=== PATIENT | male | born 1940 | race Caucasian/White ===

== ENCOUNTER → 2018-04-15 09:18 | Outpatient (CLI) | payer OTHER, SELFPAY ==
[2018-04-15 10:31] LABS: Hemoglobin A1C% w Est Avg Glu 7.1 % (4.0-6.0)
[2018-04-15 10:36] LABS: Alanine Aminotransferase 24 IU/L (21-72); Albumin Globulin Ratio 1.5 (1.0-2.8); Alkaline Phosphatase 58 U/L (38-126); Aspartate Aminotransferase 18 IU/L (17-59); BUN Creatinine Ratio 28.3 (6-22); Bilirubin Total 1.5 mg/dL (0.2-1.3); Blood Urea Nitrogen 17 mg/dL (9-20); Calcium 9.6 mg/dL (8.4-10.2); Carbon Dioxide 25 mmol/L (22-32); Chloride 102 mmol/L (98-107); Cholesterol 125 mg/dL (140-199); Estimated Glomerular Filt Rate > 60.0 mL/min (>60); Globulin 2.6 g/dL (1.7-4.1); Glucose 157 mg/dL (80-110); HDL Cholesterol 29 mg/dL (40-60); HEMOLYSIS < 15 (0-50); LDL Cholesterol Calculated 73 mg/dL (<100); Sodium 140 mmol/L (137-145); Total Protein 6.6 g/dL (6.3-8.2); Triglycerides 115 mg/dL (35-150)
[2018-04-15 10:51] LABS: Creatinine Urine Random 126.1 mg/dL
[2018-04-15 10:56] LABS: Microalbumi Creatinin Ratio Ur 12.6 ug/mg CR (<30); Microalbumin Urine Random 1.6 mg/dL (0-1.6)
== END ==
PROVIDERS: PCP Internal Medicine; Visit Provider Internal Medicine
DX: E11.65 Type 2 diabetes mellitus with hyperglycemia (principal); I10 Essential (primary) hypertension; E78.2 Mixed hyperlipidemia
CPT/HCPCS: 80053; 80061; 82043; 82570; 83036

== ENCOUNTER → 2018-10-13 08:00 | Outpatient (CLI) | payer OTHER, SELFPAY ==
[2018-10-13 09:03] LABS: Hemoglobin A1C% w Est Avg Glu 7.9 % (4.0-6.0)
[2018-10-13 09:36] LABS: Alanine Aminotransferase 19 IU/L (21-72); Albumin 4.5 g/dL (3.5-5.0); Albumin Globulin Ratio 1.7 (1.0-2.8); Alkaline Phosphatase 54 U/L (38-126); Aspartate Aminotransferase 21 IU/L (17-59); BUN Creatinine Ratio 22.9 (6-22); Bilirubin Total 1.4 mg/dL (0.2-1.3); Blood Urea Nitrogen 16 mg/dL (9-20); Calcium 9.8 mg/dL (8.4-10.2); Carbon Dioxide 29 mmol/L (22-32); Chloride 98 mmol/L (98-107); Estimated Glomerular Filt Rate > 60.0 mL/min (>60); Globulin 2.7 g/dL (1.7-4.1); Glucose 127 mg/dL (80-110); HEMOLYSIS < 15 (0-50); Potassium 4.1 mmol/L (3.4-5.1); Sodium 141 mmol/L (137-145); Total Protein 7.2 g/dL (6.3-8.2)
== END ==
PROVIDERS: PCP Internal Medicine; Visit Provider Internal Medicine
DX: E11.59 Type 2 diabetes mellitus with other circulatory complications (principal); E78.2 Mixed hyperlipidemia; I10 Essential (primary) hypertension
CPT/HCPCS: 36415; 80053; 83036

== ENCOUNTER → 2019-03-14 07:02 | Outpatient (CLI) | payer OTHER, SELFPAY ==
[2019-03-14 09:43] LABS: Hemoglobin A1C% w Est Avg Glu 8.1 % (4.0-6.0)
[2019-03-14 10:06] LABS: Alanine Aminotransferase 18 IU/L (21-72); Albumin 3.9 g/dL (3.5-5.0); Albumin Globulin Ratio 1.7 (1.0-2.8); Alkaline Phosphatase 62 U/L (38-126); Aspartate Aminotransferase 15 IU/L (17-59); BUN Creatinine Ratio 18.8 (6-22); Bilirubin Total 1.4 mg/dL (0.2-1.3); Blood Urea Nitrogen 15 mg/dL (9-20); Calcium 9.8 mg/dL (8.4-10.2); Carbon Dioxide 25 mmol/L (22-32); Chloride 97 mmol/L (98-107); Estimated Glomerular Filt Rate > 60.0 mL/min (>60); Globulin 2.3 g/dL (1.7-4.1); Glucose 207 mg/dL (80-110); HEMOLYSIS < 15 (0-50); Potassium 4.7 mmol/L (3.4-5.1); Sodium 135 mmol/L (137-145); Total Protein 6.2 g/dL (6.3-8.2)
== END ==
PROVIDERS: PCP Internal Medicine; Visit Provider Internal Medicine
DX: E11.65 Type 2 diabetes mellitus with hyperglycemia (principal); I10 Essential (primary) hypertension
CPT/HCPCS: 36415; 80053; 83036

== ENCOUNTER → 2019-03-25 14:09 | Outpatient (CLI) | payer OTHER, SELFPAY ==
--- NOTE | 2019-03-25 | DI.ECHO.S_ITS ---
[facility] +---------+ [facility] +---------+ : : [address] . : : : : [address] [address] [address] : : : : [id number] : : : : Phone: [phone]---------+ Echocardiogram Report + + :Name: ANURAG TITUS Study Date: 03/25/2019 Height: 73 in : :[facility] Weight: 208 lb : : Gender: Male BSA: 2.2 m2 : :: 1940 Age: 78 yrs BP: 152/62 mmHg: :Reason For Study: CAD : :Ordering Physician: : :César Mccullough M.D. Performed By: Rosa Fairbanks : :Referring: Dr. Kev Ward : + + Interpretation Summary The left ventricle is normal in size. Left ventricular systolic function is normal without focal wall motion abnormalities. The ejection fraction is estimated to be 60-65%. LV ejection fraction has not changed since prior study. The right ventricle is mildly dilated. The right ventricular systolic function is normal. Pulmonary artery pressures cannot be estimated because of the lack of a measurable TR jet velocity. The left atrium is mildly dilated. Right atrial size is normal. The interatrial septum is intact with no evidence for an atrial septal defect. Lipomatous hypertrophy of the interatrial septum is noted. There is mild to moderate mitral annular calcification. There is mild mitral regurgitation. The aortic valve is moderately calcified. Leaflet mobility is moderately reduced. The calculated aortic valve area is 1.8 cm2. The peak aortic velocity on the previous exam was 1.5 m/sec. The aortic root is mildly dilated. Procedure: A two-dimensional transthoracic echocardiogram with color flow and Doppler was performed. The study quality was technically adequate. Comparison is made with the echocardiogram of 08-22-14. The heart rate ranged between 66-78 bpm during the study. Left Ventricle: The left ventricle is normal in size. There is mild asymmetric left ventricular hypertrophy. Left ventricular systolic function is normal without focal wall motion abnormalities. The ejection fraction is estimated to be 60-65%. Diastolic function could not be accurately assessed due to contradictory data. Right Ventricle: The right ventricle is mildly dilated. The right ventricular systolic function is normal. Atria: The left atrium is mildly dilated. Right atrial size is normal. The interatrial septum is intact with no evidence for an atrial septal defect. Lipomatous hypertrophy of the interatrial septum is noted. Mitral Valve: The mitral valve leaflets appear borderline thickened, but open well. There is mild to moderate mitral annular calcification. There is mild mitral regurgitation. Aortic Valve: The aortic valve is trileaflet. The aortic valve is moderately calcified. Leaflet mobility is moderately reduced. The calculated aortic valve area is 1.8 cm2. The peak aortic velocity is 2.0 m/sec. The peak aortic velocity on the previous exam was 1.5 m/sec. The aortic valve mean gradient is 8 mmHg. Severity ratio is 0.55. There is trace aortic regurgitation. Tricuspid Valve: The tricuspid valve is normal in structure and function. There is a trace or physiologic amount of tricuspid regurgitation. Pulmonary artery pressures cannot be estimated because of the lack of a measurable TR jet velocity. Pulmonic Valve: The pulmonic valve is not well visualized. There is trace pulmonic regurgitation. Great Vessels: The aortic root is mildly dilated. The dimensions of the ascending aorta are normal. The aortic arch is normal in size. The IVC is of normal diameter and collapses greater than 50% with a sniff. This suggests a low right atrial pressure of 3 mm Hg. Pericardium/ Pleura There is no pericardial effusion. There is no pleural effusion. MMode/2D Measurements & Calculations LVIDd: 4.2 cm LVOT diam: 2.1 cm LVIDs: 2.6 cm Ao root diam: 3.9 cm FS: 38.1 % Aortic Jxn: 2.9 cm EPSS: 0.83 cm asc Aorta Diam: 3.2 cm IVSd: 1.3 cm Ao Arch Diam (Prox Trans): 2.9 cm LVPWd: 1.00 cm LV chavira. diameter/BSA (cm/m^2): 1.9 LV sys. diameter/BSA (cm/m^2): 1.2 LA dimension: 4.1 cm RA long axis: 5.1 cm LA A2 area: 24.6 cm2 RA area: 17.8 cm2 LA A4 area: 22.2 cm2 RA vol: 52.8 ml LA length (vol): 5.9 cm RA : 24.1 ml/m2 LA vol: 78.9 ml IVC diam: 1.2 cm LA vol index: 36.1 ml/m2 RVDd major: 4.9 cm RVD1 (basal): 3.5 cm RVD2 (mid): 3.2 cm TISH (plan): 1.4 cm2 Doppler Measurements & Calculations Ao V2 max: 197.0 cm/sec LVOT Max Stanley: 105.0 cm/sec Ao V2 mean: 128.2 cm/sec LV V1 max P.4 mmHg Ao max P.5 mmHg LV V1 VTI: 22.9 cm Ao mean P.8 mmHg TISH(I,D): 1.9 cm2 Ao V2 VTI: 41.9 cm TISH(V,D): 1.8 cm2 sev ratio: 0.55 TISH indexed to BSA (cm^2/m^2): 0.86 MV E max stanley: 90.1 cm/sec TR max stanley: 236.7 cm/sec MV A max stanley: 140.2 cm/sec TR max P.4 mmHg MV E/A: 0.64 PA V2 max: 83.9 cm/sec Med Peak E' Stanley: 4.8 cm/sec PA V2 mean: 55.8 cm/sec E/E' med: 18.6 PA mean P.4 mmHg Lat Peak E' Stanley: 5.4 cm/sec PA Accel Time: 0.15 sec E/E' lat: 16.8 E/e' average: 17.7 MV dec time: 0.26 sec MV P1/2t: 79.7 msec MV P1/2t max stanley: 91.2 cm/sec SV(LVOT): 79.1 ml MVA(P1/2t): 2.8 cm2 Reading Physician:05:26 PM
== END ==
PROVIDERS: PCP Internal Medicine; Visit Provider Internal Medicine Cardiovascular Disease
DX: I34.0 Nonrheumatic mitral (valve) insufficiency (principal); I25.119 Atherosclerotic heart disease of native coronary artery with unspecified angina pectoris
CPT/HCPCS: 93306

== ENCOUNTER → 2019-08-01 08:08 | Outpatient (CLI) | payer OTHER, SELFPAY ==
[2019-08-01 09:26] LABS: Blood Urea Nitrogen 14 mg/dL (9-20); Calcium 10.2 mg/dL (8.4-10.2); Carbon Dioxide 31 mmol/L (22-32); Chloride 98 mmol/L (98-107); Estimated Glomerular Filt Rate > 60.0 mL/min (>60); Glucose 130 mg/dL (80-110); HEMOLYSIS < 15 (0-50); Potassium 4.9 mmol/L (3.4-5.1); Sodium 138 mmol/L (137-145)
== END ==
PROVIDERS: PCP Internal Medicine; Visit Provider Internal Medicine
DX: E11.65 Type 2 diabetes mellitus with hyperglycemia (principal); I10 Essential (primary) hypertension
CPT/HCPCS: 36415; 80048; 83036

== ENCOUNTER 2019-09-13 16:32 | Emergency (ER) | payer OTHER, SELFPAY ==
[2019-09-13 16:58] VITALS: BP 123/71; PULSE 82; RESP 16; TEMP 36.4; O2SAT 96; BMI 27.8
--- NOTE | 2019-09-13 18:01 | ED.WOUNDLAC ---
HPI - Wound/Laceration <Bertha Quinn PA-C - Last Filed: 09/13/19 21:09> General Chief Complaint: Wound/Laceration Stated Complaint: HEAD HIT DOOR FRAME Time Seen by Provider: 09/13/19 17:56 Source: patient Mode of arrival: Ambulatory Limitations: no limitations History of Present Illness HPI narrative: This 79-year-old gentleman states that he did not lift his foot high enough for the top step, caught his foot on the step and pitched forward, hitting his scalp on the door frame. He states that he did not pass out, but this was bleeding quite a bit so came in to see if he needs sutures. He denies any headache, vision change, nausea or vomiting. he denies hitting his neck or any other injury. He denies any pain at all currently and states he feels fine other than this laceration. He is on ASA for cardiac issues, denies other blood thinners or new medicines. Related Data Home Medications Medication Instructions Recorded Confirmed FOLIC ACID/VIT A/VIT B1/VIT 1 tab PO QDAY #0 07/10/11 08/05/19 (#MULTIVITAMIN) cholecalciferol (vitamin D3) 5,000 iu PO QDAY #0 07/10/11 08/05/19 [Vitamin D3] metformin 1,000 mg PO BID #0 07/10/11 08/05/19 glimepiride 1 mg tablet 2 mg PO QAM 04/19/18 08/05/19 blood sugar diagnostic #10 each 10/18/18 08/05/19 lancets 33 gauge #100 each 10/18/18 08/05/19 metoprolol tartrate 50 mg tablet 100 mg PO ONCE tab 04/05/19 08/05/19 chlorthalidone 25 mg tablet 25 mg PO DAILY tab 08/05/19 08/05/19 insulin NPH isoph U-100 human 100 24 unit SUBCUT DAILY ml 08/05/19 08/05/19 unit/mL subcutaneous suspension insulin regular human 100 unit/mL 19 unit SUBCUT DAILY ml 08/05/19 08/05/19 injection solution lisinopril 20 mg tablet 20 mg PO DAILY 08/05/19 08/05/19 simvastatin 20 mg tablet 20 mg PO DAILY 08/05/19 08/05/19 Allergies Allergy/AdvReac Type Severity Reaction Status Date / Time No Known Drug Allergies Allergy Verified 08/05/19 08:52 Review of Systems <Bertha Quinn PA-C - Last Filed: 09/13/19 21:09> Review of Systems ROS Unobtainable: All systems reviewed & are unremarkable except as noted in HPI and below Patient History <Bertha Quinn PA-C - Last Filed: 09/13/19 21:09> Medical History (Updated 09/13/19 @ 19:12 by Bertha Quinn PA-C) Coronary artery disease involving [place]nine [place] coronary artery of [place]nine [place] heart without angina pectoris (Chronic 08/07/15) Esophageal ring (Chronic) Essential hypertension (Chronic 08/07/15) History of adenomatous polyp of colon (Inactive 07/10/11) History of heart bypass surgery (Inactive 08/07/15) [facility]FP current use of insulin (Chronic 09/25/15) Mixed hyperlipidemia (Chronic) Type 2 diabetes mellitus with hyperglycemia (Chronic 12/04/15) 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) Surgical History (Updated 08/05/19 @ 09:13 by Kev Ward MD) Status post appendectomy (Resolved) Status post cholecystectomy (Resolved) Status post coronary artery bypass graft (Resolved 07/2015) Social History marital status: unmarried,single number of children: 0 household members: none lives independently: Yes caregiver/support person: No housing: house pets and animals: No education level: other (Bachelors, Did courses for Masters and PhD) occupational status: 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) 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 HEENT: PERRL, EOMI, normal oropharynx LUNGS: Clear to auscultation bilaterally. HEART: Rate and rhythm regular without murmur, normal S1 and S2, no S3 or S4. DERMATOLOGIC: 5 cm curvilinear left parietal laceration, oozing slightly, maximum depth and gap 2 to 3 mm. NEUROLOGIC: Patient is alert and oriented with normal speech and coordination Initial Vital Signs Initial Vital Signs: Vital Signs Temperature 97.6 F 09/13/19 16:58 Pulse Rate 82 09/13/19 16:58 Respiratory Rate 16 09/13/19 16:58 Blood Pressure 123/71 09/13/19 16:58 Pulse Oximetry 96 09/13/19 16:58 <Quirino Shen MD - Last Filed: 09/14/19 04:28> Initial Vital Signs Initial Vital Signs: Vital Signs Temperature 97.6 F 09/13/19 16:58 Pulse Rate 82 09/13/19 16:58 Respiratory Rate 16 09/13/19 16:58 Blood Pressure 123/71 09/13/19 16:58 Pulse Oximetry 96 09/13/19 16:58 Procedures <Bertha Quinn PA-C - Last Filed: 09/13/19 21:09> Laceration Repair Laceration 1: Site: scalp Side (If applicable): left Size (cm): 5 Description: linear Depth: simple, single layer Pre-repair: wound explored, irrigated extensively and deep structures intact Skin layer closed with: other (bertin, #6) Course <Bertha Quinn PA-C - Last Filed: 09/13/19 21:09> Orders Ordered: Discontinued Medications Diphtheria/Tetanus/Acell Pertussis (Adacel) 0.5 ml IM .ONCE ONE Stop: 09/13/19 18:17 Last Admin: 09/13/19 18:49 Dose: 0.5 ml Documented by: ARRINGTO Vital Signs Vital signs: Vital Signs - 8 hr 09/13/19 16:58 09/13/19 19:00 Temperature 97.6 F Pulse Rate 82 70 Respiratory Rate 16 16 Blood Pressure 123/71 Blood Pressure [Left Arm] 146/63 H Pulse Oximetry 96 99 <Quirino Shen MD - Last Filed: 09/14/19 04:28> Orders Ordered: Discontinued Medications Diphtheria/Tetanus/Acell Pertussis (Adacel) 0.5 ml IM .ONCE ONE Stop: 09/13/19 18:17 Last Admin: 09/13/19 18:49 Dose: 0.5 ml Documented by: HFARRINGTO Vital Signs Vital signs: Vital Signs - 8 hr 09/13/19 16:58 09/13/19 19:00 Temperature 97.6 F Pulse Rate 82 70 Respiratory Rate 16 16 Blood Pressure 123/71 Blood Pressure [Left Arm] 146/63 H Pulse Oximetry 96 99 MDM - Wound/Laceration <Bertha Quinn PA-C - Last Filed: 09/13/19 21:09> Imaging Data head CT: Radiologist's impression: 51 Bertha Quinn PA-C Find Patient Imaging - Jimmy Ferraro 79 M 1940 ACTIVITY DATE EXAM STATUS AUTHOR 09/13/19 18:16 Signed Amarilis Solis [address] [address] [address] Scan Report Signed Patient: Jimmy Ferraro FMR#: [id number] : 9Acct:[id number] Age/Sex: 79 / MDate of Service: 09/13/19 Loc: ED Accession Number: [id number] Procedure: CT head/brain wo con Ordering Provider: Bertha Quinn P.A-C PROCEDURE: CT HEAD/BRAIN WO CON INDICATIONS: fall, head contusion TECHNIQUE: Noncontrast 4.5 mm thick angled axial sections acquired from the foramen magnum to the vertex, with coronal and sagittal reformats. For radiation dose reduction, the following was used: automated exposure control, adjustment of mA and/or kV according to patient size. COMPARISON: None. FINDINGS: Image quality: Excellent. CSF spaces: Basal cisterns are patent. No extra-axial fluid collections. The ventricles are symmetric in size and shape. Brain: No intracranial bleeds or masses. There is cerebral volume loss for age, with resultant ventricular and sulcal prominence. There are periventricular and deep white matter chronic small vessel ischemic changes. There is intracranial internal carotid artery atherosclerosis. Skull and face: Calvarium and visualized facial bones appear intact, without suspicious lesions. Left frontal scalp bertin noted. Sinuses: Visualized sinuses and mastoids are clear. IMPRESSION: No acute intracranial disease process. Dictated by: Amarilis Solis MD, PhD on 09/13/2019 at 19:00 Approved by: Amarilis Solis MD, PhD on 09/13/2019 at 19:02 Discharge Plan Departure Patient Disposition: Home Clinical Impression: Laceration of scalp Qualifiers: Encounter type: initial encounter Qualified Code(s): S01.01XA - Laceration without foreign body of scalp, initial encounter Discharge Date/Time: 09/13/19 19:19 Instructions: DI for Laceration Repair -- [place] Activity Restrictions/Additional Instructions: As we talked about, you should return to the ED or see your PCP away if any signs of infection. Please keep your wound clean and dry. It is okay to rinse off quickly in the shower but avoid immersion in water or manipulating the wound. The bertin can be removed in about a week. Please make an appointment with your PCP next week for this. You may return here if needed for this as well Prescriptions: No Action metformin 1,000 MG tablet 1,000 mg PO BID Qty: 0 RF: 0 cholecalciferol (vitamin D3) [Vitamin D3] 1,000 UNIT tablet 5,000 iu PO QDAY Qty: 0 RF: 0 FOLIC ACID/VIT A/VIT B1/VIT (#MULTIVITAMIN) 1 tab PO QDAY Qty: 0 RF: 0 glimepiride 1 mg tablet 2 mg PO QAM RF: 0 metoprolol tartrate 50 mg tablet 100 mg PO ONCE RF: 0 (DME) blood sugar diagnostic [OneTouch Verio] strip See Dose Instructions .ROUTE .MEDSUPPLY Qty: 10 RF: 0 (DME) lancets [OneTouch Delica Lancets] 33 gauge misc See Dose Instructions .ROUTE .MEDSUPPLY Qty: 100 RF: 0 chlorthalidone 25 mg tablet 25 mg PO DAILY RF: 0 Humulin R Regular U-100 Insuln 100 unit/mL solution 19 unit SUBCUT DAILY RF: 0 Humulin N NPH U-100 Insulin 100 unit/mL suspension 24 unit SUBCUT DAILY RF: 0 simvastatin 20 mg tablet 20 mg PO DAILY RF: 0 lisinopril 20 mg tablet 20 mg PO DAILY RF: 0 Referrals: Kev Ward MD [Primary Care Provider] -
--- NOTE | 2019-09-13 18:16 | DI.CT.S_ITS ---
PROCEDURE: CT HEAD/BRAIN WO CON INDICATIONS: fall, head contusion TECHNIQUE: Noncontrast 4.5 mm thick angled axial sections acquired from the foramen magnum to the vertex, with coronal and sagittal reformats. For radiation dose reduction, the following was used: automated exposure control, adjustment of mA and/or kV according to patient size. COMPARISON: None. FINDINGS: Image quality: Excellent. CSF spaces: Basal cisterns are patent. No extra-axial fluid collections. The ventricles are symmetric in size and shape. Brain: No intracranial bleeds or masses. There is cerebral volume loss for age, with resultant ventricular and sulcal prominence. There are periventricular and deep white matter chronic small vessel ischemic changes. There is intracranial internal carotid artery atherosclerosis. Skull and face: Calvarium and visualized facial bones appear intact, without suspicious lesions. Left frontal scalp bertin noted. Sinuses: Visualized sinuses and mastoids are clear. IMPRESSION: No acute intracranial disease process. Dictated by: Amarilis Solis MD, PhD on 09/13/2019 at 19:00 Approved by: Amarilis Solis MD, PhD on 09/13/2019 at 19:02
[2019-09-13] MEDS: TET,DIPH,PERTUSS(ACELL),VAC/PF 0.5 ML SYRINGE IM (18:49)
[2019-09-13 19:00] VITALS: BP 146/63; PULSE 70; RESP 16; O2SAT 99
--- NOTE | 2019-09-13 19:03 | PC.NURSE ---
steristrips applied between bertin per V. Fishfader request, nonstick dressing applied
== END 2019-09-13 19:19 | disposition home or self-care (01) ==
PROVIDERS: Emergency Provider Internal Medicine; Family Provider Internal Medicine; PCP Internal Medicine
DX: S01.01XA Laceration without foreign body of scalp, initial encounter (principal); W01.198A Fall on same level from slipping, tripping and stumbling with subsequent striking against other object, initial encounter; Z79.82 Long term (current) use of aspirin; Z23 Encounter for immunization
CPT/HCPCS: 12002; 70450; 90471; 99283; 90715

== ENCOUNTER → 2020-02-03 08:08 | Outpatient (CLI) | payer OTHER, SELFPAY ==
[2020-02-03 09:11] LABS: Alanine Aminotransferase 15 IU/L (<50); Albumin 4.4 g/dL (3.5-5.0); Albumin Globulin Ratio 1.4 (1.0-2.8); Alkaline Phosphatase 64 U/L (38-126); Aspartate Aminotransferase 23 IU/L (17-59); BUN Creatinine Ratio 19.3 (6-22); Bilirubin Total 1.4 mg/dL (0.2-1.3); Blood Urea Nitrogen 16 mg/dL (9-20); Calcium 10.1 mg/dL (8.4-10.2); Carbon Dioxide 30 mmol/L (22-32); Chloride 98 mmol/L (98-107); Cholesterol 140 mg/dL (140-199); Estimated Glomerular Filt Rate > 60.0 mL/min (>60); Globulin 3.1 g/dL (1.7-4.1); Glucose 190 mg/dL (80-110); HDL Cholesterol 29 mg/dL (40-60); HEMOLYSIS < 15 (0-50); LDL Cholesterol Calculated 89 mg/dL (<100); Potassium 4.3 mmol/L (3.4-5.1); Sodium 138 mmol/L (137-145); Total Protein 7.5 g/dL (6.3-8.2); Triglycerides 110 mg/dL (35-150)
[2020-02-03 09:12] LABS: Hemoglobin A1C% w Est Avg Glu 8.1 % (4.0-6.0)
== END ==
PROVIDERS: Family Provider Internal Medicine; PCP Internal Medicine; Referring Provider Internal Medicine; Visit Provider Internal Medicine
DX: E11.59 Type 2 diabetes mellitus with other circulatory complications (principal); E78.2 Mixed hyperlipidemia; I10 Essential (primary) hypertension
CPT/HCPCS: 36415; 80053; 80061; 83036

== ENCOUNTER → 2020-06-22 07:46 | Outpatient (CLI) | payer OTHER, SELFPAY ==
[2020-06-22 09:10] LABS: Hemoglobin A1C% w Est Avg Glu 8.3 % (4.0-6.0)
[2020-06-22 09:31] LABS: Alanine Aminotransferase 12 IU/L (<50); Albumin 3.7 g/dL (3.5-5.0); Albumin Globulin Ratio 1.5 (1.0-2.8); Alkaline Phosphatase 58 U/L (38-126); Aspartate Aminotransferase 18 IU/L (17-59); BUN Creatinine Ratio 21.6 (6-22); Bilirubin Total 1.4 mg/dL (0.2-1.3); Blood Urea Nitrogen 16 mg/dL (9-20); Calcium 9.9 mg/dL (8.4-10.2); Carbon Dioxide 29 mmol/L (22-32); Chloride 100 mmol/L (98-107); Cholesterol 128 mg/dL (140-199); Estimated Glomerular Filt Rate > 60.0 mL/min (>60); Globulin 2.4 g/dL (1.7-4.1); Glucose 208 mg/dL (80-110); HDL Cholesterol 29 mg/dL (40-60); HEMOLYSIS < 15 (0-50); LDL Cholesterol Calculated 76 mg/dL (<100); Potassium 4.8 mmol/L (3.4-5.1); Sodium 136 mmol/L (137-145); Total Protein 6.1 g/dL (6.3-8.2); Triglycerides 116 mg/dL (35-150)
== END ==
PROVIDERS: Family Provider Internal Medicine; PCP Internal Medicine; Referring Provider Internal Medicine; Visit Provider Internal Medicine
DX: E11.65 Type 2 diabetes mellitus with hyperglycemia (principal); E78.2 Mixed hyperlipidemia; I10 Essential (primary) hypertension
CPT/HCPCS: 36415; 80053; 80061; 83036

== ENCOUNTER → 2020-09-26 07:58 | Outpatient (CLI) | payer OTHER, SELFPAY ==
[2020-09-26 08:51] LABS: Hemoglobin A1C% w Est Avg Glu 7.7 % (4.0-6.0)
[2020-09-26 09:11] LABS: BUN Creatinine Ratio 22.7 (6-22); Blood Urea Nitrogen 15 mg/dL (9-20); Calcium 9.8 mg/dL (8.4-10.2); Carbon Dioxide 29 mmol/L (22-32); Chloride 101 mmol/L (98-107); Estimated Glomerular Filt Rate > 60.0 mL/min (>60); Glucose 173 mg/dL (80-110); HEMOLYSIS < 15 (0-50); Potassium 4.2 mmol/L (3.4-5.1); Sodium 137 mmol/L (137-145)
== END ==
PROVIDERS: Family Provider Internal Medicine; PCP Internal Medicine; Referring Provider Internal Medicine; Visit Provider Internal Medicine
DX: E11.65 Type 2 diabetes mellitus with hyperglycemia (principal); I10 Essential (primary) hypertension
CPT/HCPCS: 36415; 80048; 83036

== ENCOUNTER → 2020-12-20 08:01 | Outpatient (CLI) | payer OTHER, SELFPAY ==
[2020-12-20 09:03] LABS: Hemoglobin A1C% w Est Avg Glu 8.1 % (4.0-6.0)
[2020-12-20 09:39] LABS: Alanine Aminotransferase 16 IU/L (<50); Albumin Globulin Ratio 1.6 (1.0-2.8); Alkaline Phosphatase 57 U/L (38-126); Aspartate Aminotransferase 20 IU/L (17-59); BUN Creatinine Ratio 26.2 (6-22); Bilirubin Total 1.5 mg/dL (0.2-1.3); Blood Urea Nitrogen 17 mg/dL (9-20); Calcium 9.8 mg/dL (8.4-10.2); Carbon Dioxide 29 mmol/L (22-32); Chloride 100 mmol/L (98-107); Estimated Glomerular Filt Rate > 60.0 mL/min (>60); Globulin 2.5 g/dL (1.7-4.1); Glucose 203 mg/dL (80-110); HEMOLYSIS 16 (0-50); Potassium 4.3 mmol/L (3.4-5.1); Sodium 137 mmol/L (137-145); Total Protein 6.5 g/dL (6.3-8.2)
== END ==
PROVIDERS: Family Provider Internal Medicine; PCP Internal Medicine; Referring Provider Internal Medicine; Visit Provider Internal Medicine
DX: E11.65 Type 2 diabetes mellitus with hyperglycemia (principal); I10 Essential (primary) hypertension
CPT/HCPCS: 36415; 80053; 83036

== ENCOUNTER → 2021-03-14 08:07 | Outpatient (CLI) | payer OTHER, SELFPAY ==
[2021-03-14 09:35] LABS: BUN Creatinine Ratio 29.5 (6-22); Blood Urea Nitrogen 23 mg/dL (9-20); Calcium 9.9 mg/dL (8.4-10.2); Carbon Dioxide 25 mmol/L (22-32); Chloride 99 mmol/L (98-107); Estimated Glomerular Filt Rate > 60.0 mL/min (>60); Glucose 205 mg/dL (80-110); HEMOLYSIS < 15 (0-50); Potassium 4.1 mmol/L (3.4-5.1); Sodium 136 mmol/L (137-145)
[2021-03-14 17:00] LABS: Hemoglobin A1C% w Est Avg Glu 7.7 % (4.0-6.0)
== END ==
PROVIDERS: Family Provider Internal Medicine; PCP Internal Medicine; Referring Provider Internal Medicine; Visit Provider Internal Medicine
DX: E11.65 Type 2 diabetes mellitus with hyperglycemia (principal); I10 Essential (primary) hypertension
CPT/HCPCS: 36415; 80048; 83036

== ENCOUNTER → 2021-09-11 08:01 | Outpatient (CLI) | payer OTHER, SELFPAY ==
[2021-09-11 08:27] LABS: Hemoglobin A1C% w Est Avg Glu 7.2 % (4.0-6.0)
[2021-09-11 08:36] LABS: Alanine Aminotransferase 16 IU/L (<50); Albumin 4.2 g/dL (3.5-5.0); Albumin Globulin Ratio 1.6 (1.0-2.8); Alkaline Phosphatase 49 U/L (38-126); Aspartate Aminotransferase 22 IU/L (17-59); BUN Creatinine Ratio 17.7 (6-22); Bilirubin Total 1.7 mg/dL (0.2-1.3); Blood Urea Nitrogen 14 mg/dL (9-20); Calcium 10.1 mg/dL (8.4-10.2); Carbon Dioxide 28 mmol/L (22-32); Chloride 98 mmol/L (98-107); Cholesterol 144 mg/dL (140-199); Estimated Glomerular Filt Rate > 60.0 mL/min (>60); Globulin 2.6 g/dL (1.7-4.1); Glucose 216 mg/dL (80-110); HDL Cholesterol 34 mg/dL (40-60); HEMOLYSIS < 15 (0-50); LDL Cholesterol Calculated 82 mg/dL (<100); Potassium 4.5 mmol/L (3.4-5.1); Sodium 137 mmol/L (137-145); Total Protein 6.8 g/dL (6.3-8.2); Triglycerides 140 mg/dL (35-150)
== END ==
PROVIDERS: Family Provider Internal Medicine; PCP Internal Medicine; Referring Provider Internal Medicine; Visit Provider Internal Medicine
DX: E11.59 Type 2 diabetes mellitus with other circulatory complications (principal); E78.2 Mixed hyperlipidemia; I10 Essential (primary) hypertension; I25.10 Atherosclerotic heart disease of native coronary artery without angina pectoris
CPT/HCPCS: 36415; 80053; 80061; 83036

== ENCOUNTER → 2022-03-13 08:05 | Outpatient (CLI) | payer OTHER, SELFPAY ==
[2022-03-13 10:56] LABS: Hemoglobin A1C% w Est Avg Glu 8.8 % (4.0-6.0)
[2022-03-13 11:14] LABS: Alanine Aminotransferase 12 IU/L (<50); Albumin 3.8 g/dL (3.5-5.0); Albumin Globulin Ratio 1.7 (1.0-2.8); Alkaline Phosphatase 56 U/L (38-126); Aspartate Aminotransferase 18 IU/L (17-59); BUN Creatinine Ratio 24.7 (6-22); Bilirubin Total 1.5 mg/dL (0.2-1.3); Blood Urea Nitrogen 20 mg/dL (9-20); Calcium 9.5 mg/dL (8.4-10.2); Carbon Dioxide 29 mmol/L (22-32); Chloride 101 mmol/L (98-107); Cholesterol 137 mg/dL (140-199); Estimated Glomerular Filt Rate > 60 mL/min (>60); Globulin 2.3 g/dL (1.7-4.1); Glucose 245 mg/dL (80-110); HDL Cholesterol 28 mg/dL (40-60); HEMOLYSIS < 15 (0-50); LDL Cholesterol Calculated 85 mg/dL (<100); Potassium 5.2 mmol/L (3.4-5.1); Sodium 137 mmol/L (137-145); Total Protein 6.1 g/dL (6.3-8.2); Triglycerides 121 mg/dL (35-150)
== END ==
PROVIDERS: Family Provider Internal Medicine; PCP Internal Medicine; Referring Provider Internal Medicine; Visit Provider Internal Medicine
DX: E11.59 Type 2 diabetes mellitus with other circulatory complications (principal); E78.2 Mixed hyperlipidemia; I10 Essential (primary) hypertension
CPT/HCPCS: 36415; 80053; 80061; 83036

== ENCOUNTER → 2022-05-19 13:40 | Outpatient (CLI) | payer OTHER, SELFPAY ==
--- NOTE | 2022-05-19 | DI.ECHO.S_ITS ---
[place]---------[facility] +---------+ : : [address] : : [place] : : : : [phone] : : : : Phone: [phone]---------+ Echocardiogram Report + + :Name: ANURAG TITUS Study Date: 05/19/2022 Height: 71 in : :[facility] ReadingLocation: Weight: 205 lb : : Gender: Male BSA: 2.1 m2 : :: 1940 Age: 82 yrs BP: 143/74 mmHg: :Reason For Study: AORTIC VALVE DISORDER : :Ordering Physician: DELMI, : :SMILEY Performed By: Digna Mcwilliams : :Referring: SMILEY MCCULLOUGH : + + Interpretation Summary Left ventricular wall thickness is mildly increased. The ejection fraction is estimated to be 60-65%. There is mild aortic stenosis. There is trace tricuspid regurgitation. There is an anterior echo-free space consistent with a fat pad. Procedure: A two-dimensional transthoracic echocardiogram with color flow and Doppler was performed. The study quality was technically adequate. Comparison is made with the echocardiogram of 06/13/2020. The heart rate ranged between 70-90 bpm during the study. Left Ventricle: The left ventricle is normal in size. Left ventricular wall thickness is mildly increased. The ejection fraction is estimated to be 60- 65%. Left ventricular wall motion is normal. Right Ventricle: The right ventricle is normal in size and function. Atria: The left atrium is mildly dilated. Right atrial size is normal. There is no Doppler evidence for an interatrial shunt. Mitral Valve: The mitral valve leaflets appear mildly thickened, but open well. There is mild to moderate mitral annular calcification. There is trace mitral regurgitation. Aortic Valve: The aortic valve is not well visualized. The peak aortic velocity is 2.5 m/sec. The aortic valve mean gradient is 14 mmHg. There is mild aortic stenosis. This is unchanged compared to the previous study. No aortic regurgitation is present. Tricuspid Valve: The tricuspid valve is normal in structure and function. There is trace tricuspid regurgitation. Pulmonic Valve: The pulmonic valve leaflets are thin and pliable; valve motion is normal. There is no pulmonic valvular regurgitation. Great Vessels: The aortic root is normal size. The dimensions of the ascending aorta are normal. The IVC is of normal diameter and collapses greater than 50% with a sniff. This suggests a low right atrial pressure of 3 mm Hg. Pericardium/ Pleura There is no pericardial effusion. There is an anterior echo-free space consistent with a fat pad. There is no pleural effusion. MMode/2D Measurements & Calculations LVIDd: 4.5 cm LVOT diam: 2.2 cm LVIDs: 3.2 cm Ao root diam: 3.4 cm FS: 28.8 % asc Aorta Diam: 3.4 cm IVSd: 1.1 cm Ao Arch Diam (Prox Trans): 2.9 cm LVPWd: 1.2 cm LV chavira. diameter/BSA (cm/m^2): 2.1 LV sys. diameter/BSA (cm/m^2): 1.5 LA A2 area: 22.5 cm2 RA long axis: 5.2 cm LA A4 area: 23.8 cm2 RA area: 17.4 cm2 LA length (vol): 5.9 cm RA vol: 49.4 ml LA vol: 77.0 ml RA : 23.2 ml/m2 LA vol index: 36.1 ml/m2 IVC diam: 1.6 cm RVD1 (basal): 3.5 cm RVD2 (mid): 2.1 cm TAPSE: 1.8 cm Doppler Measurements & Calculations Ao V2 max: 254.2 cm/sec LVOT Max Stanley: 87.7 cm/sec Ao V2 mean: 144.6 cm/sec LV V1 max P.1 mmHg Ao max P.1 mmHg LV V1 VTI: 16.4 cm Ao mean P.3 mmHg TISH(I,D): 1.5 cm2 Ao V2 VTI: 41.9 cm TISH(V,D): 1.3 cm2 sev ratio: 0.39 TISH indexed to BSA (cm^2/m^2): 0.70 MV E max stanley: 110.3 cm/sec PA V2 max: 100.9 cm/sec MV A max stanley: 69.5 cm/sec PA V2 mean: 76.3 cm/sec MV E/A: 1.6 PA mean P.5 mmHg Med Peak E' Stanley: 4.2 cm/sec PA pr(Accel): 31.0 mmHg E/E' med: 26.2 Lat Peak E' Stanley: 5.4 cm/sec E/E' lat: 20.5 E/e' average: 23.4 MV dec time: 0.31 sec SV(LVOT): 62.6 ml Reading Physician:10:15 AM
== END ==
PROVIDERS: Family Provider Internal Medicine; PCP Internal Medicine; Referring Provider Internal Medicine Cardiovascular Disease; Visit Provider Internal Medicine Cardiovascular Disease
DX: I35.0 Nonrheumatic aortic (valve) stenosis (principal); I25.10 Atherosclerotic heart disease of native coronary artery without angina pectoris
CPT/HCPCS: 93306

== ENCOUNTER → 2022-06-24 08:05 | Outpatient (CLI) | payer OTHER, SELFPAY ==
[2022-06-24 09:01] LABS: Hemoglobin A1C% w Est Avg Glu 7.7 % (4.0-6.0)
[2022-06-24 09:24] LABS: BUN Creatinine Ratio 21.9 (6-22); Blood Urea Nitrogen 16 mg/dL (9-20); Calcium 9.4 mg/dL (8.4-10.2); Carbon Dioxide 28 mmol/L (22-32); Chloride 101 mmol/L (98-107); Estimated Glomerular Filt Rate > 60 mL/min (>60); Glucose 115 mg/dL (80-110); HEMOLYSIS < 15 (0-50); Potassium 4.2 mmol/L (3.4-5.1); Sodium 138 mmol/L (137-145)
== END ==
PROVIDERS: Family Provider Internal Medicine; PCP Internal Medicine; Referring Provider Internal Medicine; Visit Provider Internal Medicine
DX: E11.65 Type 2 diabetes mellitus with hyperglycemia (principal); Z79.4 Long term (current) use of insulin
CPT/HCPCS: 36415; 80048; 83036

== ENCOUNTER → 2022-12-15 08:17 | Outpatient (CLI) | payer OTHER, SELFPAY ==
[2022-12-15 09:12] LABS: Hemoglobin A1C% w Est Avg Glu 7.9 % (4.0-6.0)
[2022-12-15 09:26] LABS: Alanine Aminotransferase 15 IU/L (<50); Albumin 3.7 g/dL (3.5-5.0); Albumin Globulin Ratio 1.6 (1.0-2.8); Alkaline Phosphatase 58 U/L (38-126); Aspartate Aminotransferase 18 IU/L (17-59); BUN Creatinine Ratio 20.6 (6-22); Bilirubin Total 1.3 mg/dL (0.2-1.3); Blood Urea Nitrogen 14 mg/dL (9-20); Calcium 9.4 mg/dL (8.4-10.2); Carbon Dioxide 27 mmol/L (22-32); Chloride 98 mmol/L (98-107); Cholesterol 121 mg/dL (140-199); Estimated Glomerular Filt Rate > 60 mL/min (>60); Globulin 2.3 g/dL (1.7-4.1); Glucose 153 mg/dL (80-110); HDL Cholesterol 34 mg/dL (40-60); HEMOLYSIS < 15 (0-50); LDL Cholesterol Calculated 67 mg/dL (<100); Potassium 4.1 mmol/L (3.4-5.1); Sodium 138 mmol/L (137-145); Triglycerides 98 mg/dL (35-150)
== END ==
PROVIDERS: Family Provider Internal Medicine; PCP Internal Medicine; Referring Provider Internal Medicine; Visit Provider Internal Medicine
DX: E11.59 Type 2 diabetes mellitus with other circulatory complications (principal); E78.2 Mixed hyperlipidemia; I10 Essential (primary) hypertension
CPT/HCPCS: 36415; 80053; 80061; 83036

== ENCOUNTER 2023-02-17 11:07 | Emergency (ER) | payer OTHER, SELFPAY ==
[2023-02-17] VITALS (14 sets, daily range): BP systolic 116–163; BP diastolic 60–82; PULSE 65–99; RESP 16–23; TEMP 36.1; O2SAT 94–99; BMI 28.8
--- NOTE | 2023-02-17 11:11 | DI.MRI.S_ITS ---
PROCEDURE: MR STROKE Pre- and post-contrast brain MRI, non-contrast brain MR angiogram, pre- and postcontrast neck MR angiogram INDICATIONS: left-sided facial droop TECHNIQUE: Brain: Noncontrast axial T1 spin echo, axial T2 fast spin echo, sagittal and axial FLAIR, coronal T2 fast spin echo, axial gradient echo, axial diffusion and ADC through the brain. After the administration of contrast, axial 3D VIBE of the cranial vasculature and brain. Brain MRA: Non-contrast 3-D time of flight MR angiogram, with multiple bqeurua-bljguzasm-kmltajfqvi (MIP) reformats performed. Neck MRA: Axial and sagittal TruFISP through the neck. Coronal dynamic MR angiogram during administration of contrast in the arterial and venous phases, with 3-dimenstional dalmxly-xdswnlnfm-zhcapkjeof (MIP) reformats constructed from subtraction images. COMPARISON: None. FINDINGS: Image quality: Excellent. BRAIN: CSF spaces: Ventricles are normal in size and shape. Basal cisterns are patent. No extra-axial fluid collections. Brain: No intracranial bleeds or mass effects. Barfield-white matter interface is normal. Diffusion weighted images show no acute infarct. Moderate atrophy and white matter chronic ischemic change present Brainstem appears normal. Normal intravascular flow voids are present. No abnormal intracranial enhancement. Skull and face: Calvarial marrow signal is normal. Bilateral intraocular lens replacements noted. Sinuses: Sinuses and mastoids are clear. BRAIN MR ANGIOGRAM: Anterior circulation: Intracranial internal carotid arteries are normal in size and enhancement. The flow within the paired anterior cerebral arteries is normal and symmetric. The flow within the middle cerebral arteries is normal and symmetric. The anterior communicating artery is seen. No stenoses, occlusions, or aneurysms. Posterior circulation: The visualized portions of the vertebral arteries demonstrate normal caliber, and join to form a normal appearing basilar artery. The flow within the posterior cerebral arteries is normal and symmetric. No stenoses, occlusions, or aneurysms. NECK MR ANGIOGRAM: Carotids: Great vessels demonstrate a conventional anatomy as they arise from the aortic arch. The origins of the common carotid arteries appear patent. The calibers and courses of both common carotid arteries are normal. The bifurcation regions appear normal bilaterally. The internal carotid arteries demonstrate normal course and caliber. Posterior circulation: The origins of the vertebral arteries appear patent. More superior portions of both vertebral arteries demonstrate normal course and caliber, and join to form a normal appearing basilar artery. Miscellaneous: Subclavian arteries appear patent. Pre-contrast images through the neck show no soft tissue abnormalities. IMPRESSION: Atrophy and chronic ischemic change without acute infarct, hemorrhage or mass lesion. No abnormal enhancement. Unremarkable MR angiogram of the brain without large vessel occlusion or aneurysm. Unremarkable MR angiogram of the neck without significant stenosis or occlusion Approved by: Michael Garces M.D. on 02/17/2023 at 15:13
--- NOTE | 2023-02-17 11:23 | PC.NURSE ---
Pt appears to have [place]-like symptoms. Right sided facial droop, can't close right eye. Unable to puff right side of cheek and unable to raise r-eyebrow. Right sided cheek sensation = same. Strong social psychologist strength.
--- NOTE | 2023-02-17 11:27 | ED_ITS ---
HPI - Neuro Symptoms/Deficit General Chief Complaint: Neuro Symptoms/Deficit Stated Complaint: might've had stroke T-3 Time Seen by Provider: 02/17/23 11:10 Source: patient Mode of arrival: Ambulatory History of Present Illness HPI Narrative: Patient is an 82-year-old male who is sent over from the ophthalmology clinic for evaluation of right-sided facial droop. He stated that he started noticing some discomfort to his right eye 3 days ago but he did not look in the mirror until this morning when he found out that he could not close his eye in the right side his face is drooping. He is no other associated symptoms. He went to the ophthalmology clinic today as a walk-in for evaluation. He would a fairly extensive workup during that time and it did not appear to be any direct ocular causes nor retinal causes. There was concern about either Hutson's palsy or a CVA. Patient is not having any headache. No problems breathing. No problems swallowing. No extremity symptoms. He was sent to the emergency department for for further evaluation/MRI. Related Data Home Medications Medication Instructions Recorded Confirmed cholecalciferol (vitamin D3) 25 5,000 iu PO QDAY ##0 07/10/11 12/19/22 mcg (1,000 unit) tablet (Vitamin D3) glimepiride 1 mg tablet 2 mg PO QAM 04/19/18 12/19/22 lisinopril 20 mg tablet 20 mg PO DAILY 08/05/19 12/19/22 simvastatin 20 mg tablet 20 mg PO DAILY 08/05/19 12/19/22 Occuguard Plus See Rx Instructions .Route .COMPLEX 02/06/20 12/19/22 lancets 33 gauge (OneTouch Delica #100 ea 02/06/20 12/19/22 Lancets) metformin 1,000 mg tablet 1,000 mg PO BID ##0 02/06/20 12/19/22 insulin regular human 100 unit/mL See Rx Instructions SUBCUT QAC 12/24/20 12/19/22 injection solution (Humulin R Regular U-100 Insulin) insulin NPH isoph U-100 human 100 See Rx Instructions SUBCUT BID 03/19/21 12/19/22 unit/mL subcutaneous suspension (Humulin N NPH U-100 Insulin (isophane susp)) metoprolol tartrate 50 mg tablet 50 mg PO BID 06/27/22 12/19/22 chlorthalidone 25 mg tablet 12.5 mg PO Q OTHER DAY 12/19/22 12/19/22 Previous Rx's Medication Instructions Recorded OneTouch Verio Test Strips #250 ea 06/05/20 prednisone 20 mg tablet 60 mg PO DAILY 7 days #21 tabs 02/17/23 Allergies Allergy/AdvReac Type Severity Reaction Status Date / Time No Known Drug Allergies Allergy Verified 02/17/23 11:15 Review of Systems Review of Systems ROS Unobtainable: All systems reviewed & are unremarkable except as noted in HPI and below Patient History Medical History Coronary artery disease involving [place] coronary artery of [place] heart without angina pectoris (08/07/15) Esophageal ring Essential hypertension (08/07/15) Gilbert syndrome History of adenomatous polyp of colon (07/10/11) History of heart bypass surgery (08/07/15) longterm current use of insulin (09/25/15) Mixed hyperlipidemia Type 2 diabetes mellitus with hyperglycemia (12/04/15) Type 2 diabetes mellitus with other circulatory complication (08/07/15) Surgical History (Updated 08/05/19 @ 09:13 by Kev Ward MD) Status post appendectomy Status post cholecystectomy 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) Family History Father Family history of leukemia Mother Family history of [place] (myocardial infarction) Social History marital status: unmarried,single number of children: 0 household members: none lives independently: Yes caregiver/support person: No housing: house pets and animals: No education level: other occupational status: other 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: Agnostic travel history: recent leisure activities: reading and other Smoking Status: Former smoker Tobacco: How many years used: 5 Smokeless tobacco user: other quit status: quit date established second hand exposure: No alcohol intake: never substance use type: does not use Smoking Status: Former smoker alcohol intake frequency: holidays/special occasions only Substance Use Type: does not use Exam Initial Vital Signs Initial Vital Signs: Vital Signs Temperature 96.9 F L 02/17/23 11:10 Pulse Rate 68 02/17/23 11:10 Respiratory Rate 16 02/17/23 11:10 Blood Pressure 163/82 H 02/17/23 11:10 Pulse Oximetry 99 02/17/23 11:10 Oxygen Delivery Method Room Air 02/17/23 11:10 Const General: cooperative, comfortable and No ill appearing [place] Head: normal to inspection and normocephalic Face and sinus: other (No rashes, does droop right side of face) Eyes Conjunctivae: conjunctivae normal Other: Patient unable to close his right eye. Pupils are dilated but was dilated at the ophthalmology clinic. Resp Effort & Inspection: normal respiratory effort Auscultation: clear to auscultation bilaterally Cardio Rate: regular rate Rhythm: regular rhythm GI Inspection: normal to inspection General: bimanual renal exam normal bilaterally Skin General: no rashes or lesions noted Neuro Other: 5/5 upper and lower extremity equal bilateral. Patient is ambulatory. No sensation differences. His dripping from the right side of the face. This includes the forehead. Sensation is the same both sides of face. Extraocular muscles are intact. Cranial nerves otherwise intact. Extrem General: normal to inspection and capillary refill normal Course Orders Ordered: ED Orders 02/17/23 11:11 MR stroke Stat 02/17/23 11:16 EKG-12 Lead Stat 02/17/23 11:19 Complete Blood Count AUTO DIFF Stat Comprehensive Metabolic Panel Stat Lipase Stat PTT Partial Thromboplastin [place] Stat Prothrombin Time INR Stat Vital Signs Vital signs: Vital Signs - 8 hr 02/17/23 11:10 02/17/23 11:12 02/17/23 11:14 Temperature 96.9 F L Pulse Rate 68 77 89 Respiratory Rate 16 20 Blood Pressure 163/82 H Pulse Oximetry 99 98 99 Oxygen Delivery Method Room Air 02/17/23 11:14 02/17/23 11:30 02/17/23 11:32 Temperature Pulse Rate 90 90 Respiratory Rate 22 22 Blood Pressure 163/82 H Pulse Oximetry 97 96 Oxygen Delivery Method 02/17/23 11:32 02/17/23 11:45 02/17/23 11:45 Temperature Pulse Rate 85 Respiratory Rate 22 Blood Pressure 129/60 137/67 Pulse Oximetry 95 Oxygen Delivery Method 02/17/23 12:00 02/17/23 12:00 02/17/23 12:15 Temperature Pulse Rate 88 85 Respiratory Rate 23 21 Blood Pressure 134/64 Pulse Oximetry 96 95 Oxygen Delivery Method 02/17/23 12:15 02/17/23 12:30 02/17/23 12:30 Temperature Pulse Rate 84 Respiratory Rate 22 Blood Pressure 116/63 143/71 H Pulse Oximetry 94 Oxygen Delivery Method 02/17/23 13:00 02/17/23 13:30 02/17/23 13:30 Temperature Pulse Rate 84 90 Respiratory Rate 22 22 Blood Pressure 142/81 H Pulse Oximetry 96 96 Oxygen Delivery Method 02/17/23 14:00 02/17/23 14:00 02/17/23 14:30 Temperature Pulse Rate 95 H 99 H Respiratory Rate 22 20 Blood Pressure 151/70 H Pulse Oximetry 97 Oxygen Delivery Method 02/17/23 17:08 Temperature Pulse Rate 65 Respiratory Rate 17 Blood Pressure 160/78 H Pulse Oximetry 99 Oxygen Delivery Method Room Air MDM - Neuro Symptoms/Deficit Lab Data Attestation: I reviewed the patient's lab results. 02/17/23 11:19 02/17/23 11:19 Labs: Lab Results 02/17/23 02/17/23 02/17/23 Range/Units 11:19 11:19 11:19 WBC 9.2 (4.5-11.0) X10^3/uL RBC 4.92 (4.5-5.9) X10^6/uL Hgb 14.8 (13.5-17.5) g/dL Hct 43.5 (41-53) % MCV 88.6 (80-100) fL MCH 30.1 (26-34) PG MCHC 34.0 (30-36) % RDW 14.0 (11.6-14.8) % Plt Count 225 (150-400) X10^3/uL Neut % (Auto) 70.8 (50-75) % Lymph % (Auto) 18.6 L (25-40) % [place] % (Auto) 7.1 (3-14) % Eos % (Auto) 2.8 (2-4) % Baso % (Auto) 0.7 (0-2) % Neut # (Auto) 6500 (1390-7915) /uL Lymph # (Auto) 1700 (5162-5808) /uL [place] # (Auto) 700 (0-900) /uL Eos # (Auto) 300 (0-450) /uL Baso # (Auto) 100 (0-100) /uL PT 13.2 H (10.1-12.7) SECONDS INR 1.2 (0.9-1.3) APTT 28 (26-36) SECONDS Sodium 138 (137-145) mmol/L Potassium 4.1 (3.4-5.1) mmol/L Chloride 99 (98-107) mmol/L Carbon Dioxide 29 (22-32) mmol/L BUN 19 (9-20) mg/dL Creatinine 0.72 (0.66-1.25) mg/dL Estimated GFR > 60 (>60) mL/min BUN/Creatinine Ratio 26.4 H (6-22) Glucose 200 H (80-110) mg/dL Calcium 9.7 (8.4-10.2) mg/dL Total Bilirubin 1.3 (0.2-1.3) mg/dL AST 23 (17-59) IU/L ALT 19 (<50) IU/L Alkaline Phosphatase 63 (38-126) U/L Total Protein 7.4 (6.3-8.2) g/dL Albumin 4.2 (3.5-5.0) g/dL Globulin 3.2 (1.7-4.1) g/dL Albumin/Globulin Ratio 1.3 (1.0-2.8) Lipase 61 (23-300) U/L Point of Care Testing Glucose POC 200 Imaging Data stroke MRI: Radiologist's Impression: PROCEDURE:? MR STROKE Pre- and post-contrast brain MRI, non-contrast brain MR angiogram, pre- and postcontrast neck MR angiogram ? INDICATIONS:? left-sided facial droop ? TECHNIQUE:? Brain:? Noncontrast axial T1 spin echo, axial T2 fast spin echo, sagittal and axial FLAIR, coronal T2 fast spin echo, axial gradient echo, axial diffusion and ADC through the brain.? After the administration of contrast, axial 3D VIBE of the cranial vasculature and brain.? Brain MRA:? Non-contrast 3-D time of flight MR angiogram, with multiple ynlblqd-csquevnmc-nsbzurltpc (MIP) reformats performed.? Neck MRA:? Axial and sagittal TruFISP through the neck.? Coronal dynamic MR angiogram during administration of contrast in the arterial and venous phases, with 3- dimenstional dintmgt-culbgfzbf-wnczxbhnfs (MIP) reformats constructed from subtraction images.? ? COMPARISON:? None. ? FINDINGS:? Image quality:? Excellent.? ? BRAIN:? CSF spaces:? Ventricles are normal in size and shape.? Basal cisterns are patent.? No extra-axial fluid collections.? Brain:? No intracranial bleeds or mass effects.? [place]-white matter interface is normal.? Diffusion weighted images show no acute infarct.? Moderate atrophy and white matter chronic ischemic change present Brainstem appears normal.? Normal intravascular flow voids are present.? No abnormal intracranial enhancement.? Skull and face:? Calvarial marrow signal is normal.? Bilateral intraocular lens replacements noted.? Sinuses:? Sinuses and mastoids are clear.? ? BRAIN MR ANGIOGRAM:? Anterior circulation:? Intracranial internal carotid arteries are normal in size and enhancement.? The flow within the paired anterior cerebral arteries is normal and symmetric.? The flow within the middle cerebral arteries is normal and symmetric.? The anterior communicating artery is seen.? No stenoses, occlusions, or aneurysms.? Posterior circulation:? The visualized portions of the vertebral arteries demonstrate normal caliber, and join to form a normal appearing basilar artery.? The flow within the posterior cerebral arteries is normal and symmetric.? No stenoses, occlusions, or aneurysms.? ? NECK MR ANGIOGRAM:? Carotids:? Great vessels demonstrate a conventional anatomy as they arise from the aortic arch.? The origins of the common carotid arteries appear patent.? The calibers and courses of both common carotid arteries are normal.? The bifurcation regions appear normal bilaterally.? The internal carotid arteries demonstrate normal course and caliber. ? Posterior circulation:? The origins of the vertebral arteries appear patent.? More superior portions of both vertebral arteries demonstrate normal course and caliber, and join to form a normal appearing basilar artery.? Miscellaneous:? Subclavian arteries appear patent.? Pre-contrast images through the neck show no soft tissue abnormalities.? ? IMPRESSION:? ? Atrophy and chronic ischemic change without acute infarct, hemorrhage or mass lesion.? No abnormal enhancement. ? Unremarkable MR angiogram of the brain without large vessel occlusion or aneurysm. ? Unremarkable MR angiogram of the neck without significant stenosis or occlusion? ECG Data Attestation: I personally reviewed and interpreted this ECG as follows: Interpretation: Atrial fibrillation Ventricular rate 88 Normal axis Normal QRS Normal QTC Nonspecific ST T wave changes MDM Narrative Medical decision making narrative: MRI today his unremarkable and shows no signs of an acute stroke. 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 Patient is unable to move the right side of his face with sensation intact. His already been evaluated by Ophthalmology. He did have some lubricating ointment ordered by Ophthalmology that has already been sent to his pharmacy of his choice. We will start him on steroids although he has had symptoms for the past couple days. We did discuss the importance of protecting his right eye. He states that if he pushes his eyes closed he is able to keep it closed so he thinks that he would be able to protect his eye specifically at night. He was given tape we discussed how he can use that at night as well. He is no other neurologic deficits. We will discharge patient home with instructions for follow-up. He was given return precautions. He expressed understanding and agreement. Discharge Plan Departure Patient Disposition: Home Clinical Impression: Hutson palsy Instructions: DI for [place] Palsy Activity Restrictions/Additional Instructions: A prescription for steroids was sent to the pharmacy of your choice. Please start taking them as directed. Also recommend that you contact your primary doctor's office tomorrow for a follow-up. Also use the ointment that Dr. Guerin ordered for you as directed as well. Return to the emergency department for new or worsening symptoms. Prescriptions: New prednisone 20 mg tablet 60 mg PO DAILY 7 Days Qty: 21 0RF No Action cholecalciferol (vitamin D3) [Vitamin D3] 1,000 UNIT tablet 5,000 iu PO QDAY Qty: 0 metformin 1,000 mg tablet 1,000 mg PO BID Qty: 0 Rx Instructions: 180 TABS/3 MO (DME) OneTouch Verio Test Strips Strip See Rx Instructions .Route .MEDSUPPLY Qty: 250 3RF Dose Instruction: Use to test blood sugars three times daily Rx Instructions: Use to test blood sugars three times daily. glimepiride 1 mg tablet 2 mg PO QAM (DME) lancets [OneTouch Delica Lancets] 33 gauge misc See Dose Instructions .ROUTE .MEDSUPPLY Qty: 100 Rx Instructions: As directed. 150 strips. 5 boxes/3 months. simvastatin 20 mg tablet 20 mg PO DAILY lisinopril 20 mg tablet 20 mg PO DAILY metoprolol tartrate 50 mg tablet 50 mg PO BID Occuguard Plus See Rx Instructions .ROUTE .COMPLEX Rx Instructions: 1 TAB PO DAILY Humulin R Regular U-100 Insuln 100 unit/mL solution See Rx Instructions SUBCUT QAC Rx Instructions: 2-3 doses SUBCUT before meals; If 2 doses 30 units Humulin N NPH U-100 Insulin 100 unit/mL suspension See Rx Instructions SUBCUT BID Rx Instructions: SUBCUT twice a day; chlorthalidone 25 mg tablet 12.5 mg PO Q OTHER DAY Referrals: Kev Ward MD [Primary Care Provider] - Stand Alone Forms: Patient Portal/API
[2023-02-17 11:30] LABS: Add Manual Diff / Slide Review NO; Basophils Absolute Auto 100 /uL (0-100); Basophils Percent Auto 0.7 % (0-2); Eosinophils Absolute Auto 300 /uL (0-450); Eosinophils Percent Auto 2.8 % (2-4); Hematocrit 43.5 % (41-53); Hemoglobin 14.8 g/dL (13.5-17.5); Lymphocytes Absolute Auto 1700 /uL (1100-4500); Lymphocytes Percent Auto 18.6 % (25-40); Mean Corpuscular Hemoglobin 30.1 PG (26-34); Mean Corpuscular Volume 88.6 fL (80-100); Monocytes Absolute Auto 700 /uL (0-900); Monocytes Percent Auto 7.1 % (3-14); Neutrophils Absolute Auto 6500 /uL (1500-7000); Neutrophils Percent Auto 70.8 % (50-75); Platelet Count 225 X10^3/uL (150-400); Red Blood Cell Count 4.92 X10^6/uL (4.5-5.9); White Blood Cell Count 9.2 X10^3/uL (4.5-11.0)
[2023-02-17 11:38] LABS: INR 1.2 (0.9-1.3); Prothrombin Time 13.2 SECONDS (10.1-12.7)
[2023-02-17 11:41] LABS: PTT Partial Thromboplastin Tim 28 SECONDS (26-36)
[2023-02-17 11:46] LABS: Alanine Aminotransferase 19 IU/L (<50); Albumin 4.2 g/dL (3.5-5.0); Albumin Globulin Ratio 1.3 (1.0-2.8); Alkaline Phosphatase 63 U/L (38-126); Aspartate Aminotransferase 23 IU/L (17-59); BUN Creatinine Ratio 26.4 (6-22); Bilirubin Total 1.3 mg/dL (0.2-1.3); Blood Urea Nitrogen 19 mg/dL (9-20); Calcium 9.7 mg/dL (8.4-10.2); Carbon Dioxide 29 mmol/L (22-32); Chloride 99 mmol/L (98-107); Estimated Glomerular Filt Rate > 60 mL/min (>60); Globulin 3.2 g/dL (1.7-4.1); Glucose 200 mg/dL (80-110); HEMOLYSIS < 15 (0-50); Lipase 61 U/L (23-300); Potassium 4.1 mmol/L (3.4-5.1); Sodium 138 mmol/L (137-145); Total Protein 7.4 g/dL (6.3-8.2)
== END 2023-02-17 17:13 | disposition home or self-care (01) ==
PROVIDERS: Emergency Provider Emergency Medicine; Family Provider Internal Medicine; PCP Internal Medicine
DX: G51.0 Bell's palsy (principal); R07.9 Chest pain, unspecified
CPT/HCPCS: 36415; 70548; 70553; 80053; 82962; 83690; 85025; 85610; 85730; 93005; 93010; 99284

== ENCOUNTER → 2023-06-15 07:58 | Outpatient (CLI) | payer OTHER, SELFPAY ==
[2023-06-15 08:51] LABS: Alanine Aminotransferase 16 IU/L (<50); Albumin 3.7 g/dL (3.5-5.0); Albumin Globulin Ratio 1.6 (1.0-2.8); Alkaline Phosphatase 65 U/L (38-126); Aspartate Aminotransferase 21 IU/L (17-59); BUN Creatinine Ratio 17.9 (6-22); Bilirubin Total 1.2 mg/dL (0.2-1.3); Blood Urea Nitrogen 12 mg/dL (9-20); Calcium 9.5 mg/dL (8.4-10.2); Carbon Dioxide 23 mmol/L (22-32); Chloride 100 mmol/L (98-107); Estimated Glomerular Filt Rate > 60 mL/min (>60); Globulin 2.3 g/dL (1.7-4.1); Glucose 274 mg/dL (80-110); HEMOLYSIS < 15 (0-50); Potassium 4.4 mmol/L (3.4-5.1); Sodium 134 mmol/L (137-145)
[2023-06-16 02:57] LABS: x Labcorp Estim. Avg Glu (eAG) 200 mg/dL (.); x Labcorp Hemoglobin A1c 8.6 % (4.8-5.6)
== END ==
PROVIDERS: Family Provider Internal Medicine; PCP Internal Medicine; Referring Provider Internal Medicine; Visit Provider Internal Medicine
DX: E78.2 Mixed hyperlipidemia (principal); E11.59 Type 2 diabetes mellitus with other circulatory complications; I10 Essential (primary) hypertension
CPT/HCPCS: 36415; 80053; 83036

== ENCOUNTER 2023-09-08 08:19 | Inpatient (IN) | payer OTHER, SELFPAY ==
[2023-09-08] VITALS (71 sets, daily range): BP systolic 131–199; BP diastolic 71–128; PULSE 49–193; RESP 14–31; TEMP 36.5; O2SAT 89–98; BMI 29.5
--- NOTE | 2023-09-08 08:32 | DI.RAD.S_ITS ---
PROCEDURE: XR CHEST 1V INDICATIONS: chest pain TECHNIQUE: One view of the chest was acquired. COMPARISON: None. FINDINGS: Surgical changes and devices: Sternotomy wires, some which are broken. Postsurgical changes in the mediastinum Lungs and pleura: No dense consolidation or pleural effusion. Mediastinum: Mild cardiomegaly Bones and chest wall: Degenerative changes. IMPRESSION: No acute radiographic abnormality on this portable single-view chest. Dictated by: Tom Hurt M.D. on 09/08/2023 at 9:07 Approved by: Tom Hurt M.D. on 09/08/2023 at 9:08
[2023-09-08] MEDS: ASPIRIN 81 MG CHEW TAB 243 MG PO (08:40)
[2023-09-08 08:44] LABS: Add Manual Diff / Slide Review NO; Basophils Absolute Auto 0 /uL (0-100); Basophils Percent Auto 0.6 % (0-2); Eosinophils Absolute Auto 200 /uL (0-450); Eosinophils Percent Auto 2.3 % (2-4); Hematocrit 40.7 % (41-53); Hemoglobin 14.2 g/dL (13.5-17.5); Lymphocytes Absolute Auto 1600 /uL (1100-4500); Lymphocytes Percent Auto 19.7 % (25-40); Mean Corpuscular HGB Conc 34.9 % (30-36); Mean Corpuscular Hemoglobin 30.1 PG (26-34); Mean Corpuscular Volume 86.2 fL (80-100); Monocytes Absolute Auto 700 /uL (0-900); Monocytes Percent Auto 8.3 % (3-14); Neutrophils Absolute Auto 5700 /uL (1500-7000); Neutrophils Percent Auto 69.1 % (50-75); Platelet Count 207 X10^3/uL (150-400); Red Blood Cell Count 4.72 X10^6/uL (4.5-5.9); Red Cell Distribution Width 13.9 % (11.6-14.8); White Blood Cell Count 8.2 X10^3/uL (4.5-11.0)
[2023-09-08 08:55] LABS: Alanine Aminotransferase 26 IU/L (<50); Albumin 3.9 g/dL (3.5-5.0); Albumin Globulin Ratio 1.5 (1.0-2.8); Alkaline Phosphatase 54 U/L (38-126); Aspartate Aminotransferase 27 IU/L (17-59); BUN Creatinine Ratio 18.9 (6-22); Bilirubin Total 1.6 mg/dL (0.2-1.3); Blood Urea Nitrogen 14 mg/dL (9-20); Calcium 9.6 mg/dL (8.4-10.2); Carbon Dioxide 32 mmol/L (22-32); Chloride 97 mmol/L (98-107); Creatine Kinase 62 U/L (55-170); Estimated Glomerular Filt Rate > 60 mL/min (>60); Globulin 2.6 g/dL (1.7-4.1); Glucose 149 mg/dL (80-110); HEMOLYSIS < 15 (0-50); Lipase 28 U/L (23-300); Magnesium 1.6 mg/dL (1.6-2.3); Sodium 140 mmol/L (137-145); Total Protein 6.5 g/dL (6.3-8.2)
[2023-09-08 08:59] LABS: Potassium 2.6 mmol/L (3.4-5.1)
[2023-09-08 09:03] LABS: INR 1.2 (0.9-1.3); Prothrombin Time 13.4 SECONDS (10.1-12.7)
[2023-09-08 09:06] LABS: PTT Partial Thromboplastin Tim 27 SECONDS (26-36)
[2023-09-08 09:49] LABS: Troponin I 0.217 ng/mL (0.01-0.034)
--- NOTE | 2023-09-08 09:49 | ED.ARRPALP ---
HPI - Arrhythmia/Palpitations <Estelakaitlynn OgDO - Last Filed: 09/09/23 11:47> General Chief Complaint: Arrhythmia/Palpitations Stated Complaint: heart problems T-7 Time Seen by Provider: 09/08/23 09:05 Source: patient Mode of arrival: Family Vehicle History of Present Illness HPI narrative: 83-year-old male with reported history of atrial fib in the past, CABG, diabetes on insulin, hypertension, dyslipidemia and CHF. Patient presents with complaint of feeling like his heart rate is elevated particularly when he exerts himself but even when he eats. States goes so fast he can not feel his pulse. He denies chest pain or pressure no shortness of breath, no nausea or vomiting no diaphoresis. No syncope. He has had chronic constipation has a bowel movement every 5 or 6 days. He is enlarged prostate and has difficulty with urination particularly when he is very constipated but denies any other new GI or urinary symptoms. He is noticed some swelling in his ankles and feet for the past couple of weeks which is new. He denies abdominal back or flank pain. He is not had any syncopal episodes. Patient states he is on an aspirin daily no other anticoagulants. He took his morning medications today. He is on Humulin long and short-acting, lisinopril, metoprolol, simvastatin, chlorthalidone, metformin, glimepiride for daily medications. He did take his a.m. meds. He states prior CABG years ago. Prior appendectomy, cholecystectomy. No known drug allergies. Smokes cigars in the past, used to drink alcohol in large amounts intermittently but has stopped for the past approximately 20 years. No recreational drugs[address] Dr. Mccullough is his cardiology at [facility]. Dr. Ward is his primary care. Related Data Home Medications Medication Instructions Recorded Confirmed cholecalciferol (vitamin D3) 25 5,000 iu PO QDAY ##0 07/10/11 09/17/23 mcg (1,000 unit) tablet (Vitamin D3) glimepiride 1 mg tablet 1 mg PO BID 04/19/18 09/17/23 simvastatin 20 mg tablet 20 mg PO DAILY 08/05/19 09/17/23 Occuguard Plus See Rx Instructions .Route .COMPLEX 02/06/20 09/17/23 metformin 1,000 mg tablet 1,000 mg PO BID ##0 02/06/20 09/17/23 insulin regular human 100 unit/mL See Rx Instructions SUBCUT QAC 12/24/20 09/17/23 injection solution (Humulin R Regular U-100 Insulin) aspirin 81 mg tablet,delayed 81 mg PO DAILY 06/18/23 09/17/23 release Previous Rx's Medication Instructions Recorded insulin NPH isoph U-100 human 100 15 - 18 unit (0.15 - 0.18 mL) 09/11/23 unit/mL subcutaneous suspension SUBCUT BID #10 mL (Humulin N NPH U-100 Insulin (isophane susp)) amlodipine 5 mg tablet 5 mg PO DAILY #90 tabs 09/17/23 apixaban 5 mg tablet (Eliquis) 5 mg PO BID #180 tabs 09/17/23 lisinopril 40 mg tablet 40 mg PO DAILY #90 tabs 09/17/23 magnesium oxide 400 mg (241.3 mg 400 mg PO BID #180 tabs 09/17/23 magnesium) tablet metoprolol succinate 100 mg 100 mg PO BID #180 tabs 09/17/23 tablet,extended release 24 hr potassium chloride 20 mEq 20 meq PO BID #180 tabs 09/17/23 tablet,extended release Allergies Allergy/AdvReac Type Severity Reaction Status Date / Time hydrochlorothiazide AdvReac Intermediate hypokalemia Verified 09/17/23 11:27 Review of Systems <Estela Og DO - Last Filed: 09/09/23 11:47> Review of Systems ROS Unobtainable: All systems reviewed & are unremarkable except as noted in HPI and below Patient History <Estela Og DO - Last Filed: 09/09/23 11:47> Medical History (Updated 09/17/23 @ 11:37 by Kev Ward MD) Atrial fibrillation Hutson palsy Gilbert syndrome Esophageal ring Type 2 diabetes mellitus with hyperglycemia (12/04/15) senior care current use of insulin (09/25/15) Type 2 diabetes mellitus with other circulatory complication (08/07/15) History of heart bypass surgery (08/07/15) Essential hypertension (08/07/15) Coronary artery disease involving [place] coronary artery of [place] heart without angina pectoris (08/07/15) Mixed hyperlipidemia History of adenomatous polyp of colon (07/10/11) Surgical History 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) Status post cholecystectomy Status post appendectomy Family History Father Family history of leukemia Mother Family history of SC (myocardial infarction) Social History marital status: unmarried,single number of children: 0 household members: none lives independently: Yes caregiver/support person: No housing: house pets and animals: No education level: other occupational status: other 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 latesha/islam: Agnostic travel history: recent leisure activities: reading and other Smoking Status: Former smoker Tobacco: How many years used: 5 Smokeless tobacco user: other quit status: quit date established second hand exposure: No alcohol intake: never substance use type: does not use Smoking Status: Former smoker tobacco type: cigarettes alcohol intake frequency: holidays/special occasions only Substance Use Type: does not use Exam <Estela Og, - Last Filed: 09/09/23 11:47> Narrative Exam Narrative: GENERAL: Alert and oriented x three, elderly male in mild distress HEENT: Head normocephalic, atraumatic, EOMI, pupils reactive, face symmetric, moist mucous membranes NECK: Supple, full range of motion CARDIOVASCULAR: Irregularly irregular but typically in the 70s rate and rhythm without murmurs, rubs or gallops. JVD but patient has large neck, patient does have 1+ bilateral edema lower extremities. RESPIRATORY: Breath sounds equal bilaterally, no wheezes rales or rhonchi. No tachypnea. Speaks in full sentences. ABDOMEN: Soft, nontender. Normoactive bowel sounds all 4 quadrants. No guarding or rebound, rigidity, no mass : No CVA tenderness EXTREMITIES: Normal range of motion, no clubbing. Neurovascularly intact NEUROLOGICAL: Cranial nerves II through XII grossly intact. Moving all extremities SKIN: Warm, dry, no petechiae, no rashes or lesions. Initial Vital Signs Initial Vital Signs: Vital Signs Temperature 97.7 F 09/08/23 08:28 Pulse Rate 80 09/08/23 08:28 Respiratory Rate 16 09/08/23 08:28 Blood Pressure 197/88 H 09/08/23 08:28 Pulse Oximetry 96 09/08/23 08:28 Oxygen Delivery Method Room Air 09/08/23 08:28 <Jamilah Cohen DO - Last Filed: 09/12/23 07:05> Initial Vital Signs Initial Vital Signs: Vital Signs Temperature 97.7 F 09/08/23 08:28 Pulse Rate 80 09/08/23 08:28 Respiratory Rate 16 09/08/23 08:28 Blood Pressure 197/88 H 09/08/23 08:28 Pulse Oximetry 96 09/08/23 08:28 Oxygen Delivery Method Room Air 09/08/23 08:28 <Dru Marino DO - Last Filed: 09/09/23 18:06> Initial Vital Signs Initial Vital Signs: Vital Signs Temperature 97.7 F 09/08/23 08:28 Pulse Rate 80 09/08/23 08:28 Respiratory Rate 16 09/08/23 08:28 Blood Pressure 197/88 H 09/08/23 08:28 Pulse Oximetry 96 09/08/23 08:28 Oxygen Delivery Method Room Air 09/08/23 08:28 <Miles Viera MD - Last Filed: 09/21/23 07:18> Initial Vital Signs Initial Vital Signs: Vital Signs Temperature 97.7 F 09/08/23 08:28 Pulse Rate 80 09/08/23 08:28 Respiratory Rate 16 09/08/23 08:28 Blood Pressure 197/88 H 09/08/23 08:28 Pulse Oximetry 96 09/08/23 08:28 Oxygen Delivery Method Room Air 09/08/23 08:28 Course <Estela Og DO - Last Filed: 09/09/23 11:47> Orders Ordered: Discontinued Medications Acetaminophen (Acetaminophen 325 Mg Tablet) 650 mg PO Q6H PRN PRN Reason: Fever/Mild Pain (1-3) Apixaban (Apixaban 5 Mg Tablet) 5 mg PO BID [facility] [place] Last Admin: 09/12/23 09:16 Dose: 5 mg Documented By: Admin: 09/11/23 20:18 Dose: 5 mg Documented By: Admin: 09/11/23 08:18 Dose: 5 mg Documented By: Admin: 09/10/23 20:59 Dose: 5 mg Documented By: Admin: 09/10/23 12:53 Dose: 5 mg Documented By: CLL Aspirin (Aspirin 81 Mg Chew Tab) 324 mg PO NOW ONE Stop: 09/08/23 08:33 Last Admin: 09/08/23 08:37 Dose: Not Given Documented By: KF Aspirin (Aspirin 81 Mg Chew Tab) 243 mg PO NOW ONE Stop: 09/08/23 08:37 Last Admin: 09/08/23 08:40 Dose: 243 mg Documented By: KF Aspirin (Aspirin Ec 81 Mg Tablet) 81 mg PO DAILY [facility] [place] Last Admin: 09/12/23 09:17 Dose: 81 mg Documented By: Admin: 09/11/23 08:19 Dose: 81 mg Documented By: KARIS Atorvastatin Calcium (Atorvastatin 20 Mg Tablet) 10 mg PO DAILY [facility] [place] Last Admin: 09/12/23 09:17 Dose: 10 mg Documented By: Admin: 09/11/23 08:18 Dose: 10 mg Documented By: Admin: 09/10/23 09:49 Dose: Not Given Documented By: SPF Bisacodyl (Bisacodyl 5 Mg Tablet) 10 mg PO DAILY PRN PRN Reason: Constipation Last Admin: 09/11/23 15:19 Dose: 10 mg Documented By: KARIS Chlorthalidone (Chlorthalidone 25 Mg Tablet) 12.5 mg PO SEEINSTR [facility] [place] Chlorthalidone (Chlorthalidone 25 Mg Tablet) 12.5 mg PO Q48H [facility] [place] Last Admin: 09/10/23 09:32 Dose: Not Given Documented By: SPF Diltiazem HCl (Diltiazem 5 Mg/Ml Sdv) 10 mg IV NOW ONE Stop: 09/09/23 07:47 Last Admin: 09/09/23 08:01 Dose: 10 mg Documented By: AMV Docusate Sodium (Docusate 100 Mg Capsule) 100 mg PO BID [facility] [place] Last Admin: 09/12/23 09:16 Dose: 100 mg Documented By: Admin: 09/11/23 20:18 Dose: 100 mg Documented By: Admin: 09/11/23 08:18 Dose: 100 mg Documented By: Admin: 09/10/23 20:59 Dose: 100 mg Documented By: SH Glimepiride (Glimepiride 2 Mg Tablet) 1 mg PO BID [facility] [place] Last Admin: 09/10/23 08:47 Dose: 1 mg Documented By: Admin: 09/09/23 21:37 Dose: 1 mg Documented By: SB Glimepiride (Glimepiride 2 Mg Tablet) 1 mg PO BID [facility] [place] Last Admin: 09/12/23 09:16 Dose: 1 mg Documented By: Admin: 09/11/23 20:19 Dose: 1 mg Documented By: Admin: 09/11/23 08:22 Dose: Not Given Documented By: Admin: 09/10/23 20:59 Dose: 1 mg Documented By: SH Heparin Sodium (Porcine) (Heparin 5,000 Unit/Ml Vial) 5,000 unit IV NOW ONE Stop: 09/08/23 12:30 Last Admin: 09/08/23 13:10 Dose: 5,000 unit Documented By: TYRONE Heparin Sodium (Porcine) (Heparin Flush (Cl/Picc/Mid-Line) 50 Unit/5 Ml Syringe) 50 unit IV PRN PRN PRN Reason: Flush Heparin Sodium (Porcine) (Heparin Flush (Cl/Picc/Mid-Line) 50 Unit/5 Ml Syringe) 50 unit IV BID [facility] [place] Last Admin: 09/12/23 09:18 Dose: 50 unit Documented By: Admin: 09/11/23 20:20 Dose: 50 unit Documented By: POTASSIUM CHLORIDE IN WATER (Potassium Cl 10 Meq/100 Ml Kimmie) 10 meq in 100 mls @ 100 mls/hr IV Q1H KEVAN Stop: 09/08/23 14:14 Last Infusion: 09/08/23 15:11 Dose: Infused Documented By: Admin: 09/08/23 13:51 Dose: 100 mls/hr Documented By: Infusion: 09/08/23 13:49 Dose: Infused Documented By: Admin: 09/08/23 12:40 Dose: 100 mls/hr Documented By: Infusion: 09/08/23 12:29 Dose: Infused Documented By: Admin: 09/08/23 11:32 Dose: 100 mls/hr Documented By: Infusion: 09/08/23 11:32 Dose: Infused Documented By: Admin: 09/08/23 10:33 Dose: 100 mls/hr Documented By: MILAGROS Heparin Sodium/Dextrose (Heparin Drip) 25,000 unit in 500 mls @ 23.079 mls/hr IV CONT KEVAN; Protocol Last Titration: 09/10/23 11:20 Dose: 0 units/kg/hr, 0 mls/hr Documented By: SPF Co-signed By: JOYCE Admin: 09/09/23 14:32 Dose: 10.4 units/kg/hr, 20 mls/hr Documented By: AMV Co-signed By: BALBIR Titration: 09/09/23 14:32 Dose: Infused Documented By: AMV Co-signed By: BALBIR Titration: 09/09/23 06:11 Dose: 10.4 units/kg/hr, 20 mls/hr Documented By: NGOZI Co-signed By: ANTHONY Titration: 09/09/23 05:25 Dose: 0 units/kg/hr, 0 mls/hr Documented By: NGOZI Co-signed By: GC Admin: 09/08/23 13:14 Dose: 10.4 units/kg/hr, 20 mls/hr Documented By: TYRONE Co-signed By: YOUSUF POTASSIUM CHLORIDE IN WATER (Potassium Cl 10 Meq/100 Ml Kimmie) 10 meq in 100 mls @ 100 mls/hr IV Q1H KEVAN Stop: 09/09/23 12:29 Last Infusion: 09/09/23 15:40 Dose: Infused Documented By: Admin: 09/09/23 14:35 Dose: 100 mls/hr Documented By: Infusion: 09/09/23 14:27 Dose: Infused Documented By: Admin: 09/09/23 13:27 Dose: 100 mls/hr Documented By: Infusion: 09/09/23 13:25 Dose: Infused Documented By: Admin: 09/09/23 12:20 Dose: 100 mls/hr Documented By: Infusion: 09/09/23 12:20 Dose: Infused Documented By: Admin: 09/09/23 11:21 Dose: 100 mls/hr Documented By: Infusion: 09/09/23 11:16 Dose: Infused Documented By: Admin: 09/09/23 10:16 Dose: 100 mls/hr Documented By: Infusion: 09/09/23 10:16 Dose: Infused Documented By: Admin: 09/09/23 09:22 Dose: 100 mls/hr Documented By: AMV Magnesium Sulfate (Magnesium Sulfate) 2 gm in 50 mls @ 25 mls/hr IV NOW ONE Stop: 09/09/23 09:07 Last Infusion: 09/09/23 11:12 Dose: Infused Documented By: AMV Co-signed By: MASSIMO Admin: 09/09/23 09:26 Dose: 25 mls/hr Documented By: AMV Co-signed By: MAIA DILTIAZEM (Diltiazem 125 Mg/125 Ml-D5w) 125 mg in 125 mls @ 5 mls/hr IV TITRATE KEVAN; Protocol Last Titration: 09/09/23 16:19 Dose: 0 mg/hr, 0 mls/hr Documented By: Titration: 09/09/23 12:10 Dose: 5 mg/hr, 5 mls/hr Documented By: Titration: 09/09/23 08:33 Dose: 10 mg/hr, 10 mls/hr Documented By: Admin: 09/09/23 08:01 Dose: 5 mg/hr, 5 mls/hr Documented By: AMTameka Dextrose (D10w) 100 mls @ 1,200 mls/hr IV PRN PRN PRN Reason: Hypoglycemia Magnesium Sulfate (Magnesium Sulfate) 2 gm in 50 mls @ 25 mls/hr IV NOW ONE Stop: 09/10/23 11:11 Last Infusion: 09/10/23 11:23 Dose: 0 mls/hr Documented By: JUAN Co-signed By: JOYCE Admin: 09/10/23 09:47 Dose: 25 mls/hr Documented By: SPF Co-signed By: ANTHONY POTASSIUM CHLORIDE IN WATER (Potassium Cl 10 Meq/100 Ml Kimmie) 10 meq in 100 mls @ 100 mls/hr IV Q1H KEVAN Stop: 09/10/23 18:14 Last Admin: 09/10/23 18:47 Dose: 100 mls/hr Documented By: Infusion: 09/10/23 18:45 Dose: Infused Documented By: Admin: 09/10/23 17:45 Dose: 100 mls/hr Documented By: Infusion: 09/10/23 17:37 Dose: Infused Documented By: Admin: 09/10/23 16:37 Dose: 100 mls/hr Documented By: Infusion: 09/10/23 16:30 Dose: Infused Documented By: Admin: 09/10/23 15:30 Dose: 100 mls/hr Documented By: Infusion: 09/10/23 15:22 Dose: Infused Documented By: Admin: 09/10/23 14:22 Dose: 100 mls/hr Documented By: Infusion: 09/10/23 13:55 Dose: Infused Documented By: Admin: 09/10/23 12:55 Dose: 100 mls/hr Documented By: MATT Dextrose (D10w) 100 mls @ 1,200 mls/hr IV PRN PRN PRN Reason: Hypoglycemia POTASSIUM CHLORIDE IN WATER (Potassium Cl 10 Meq/100 Ml Kimmie) 10 meq in 100 mls @ 100 mls/hr IV Q1H KEVAN Stop: 09/11/23 14:59 Last Admin: 09/11/23 13:53 Dose: Not Given Documented By: Infusion: 09/11/23 13:53 Dose: Infused Documented By: Admin: 09/11/23 13:52 Dose: Not Given Documented By: Admin: 09/11/23 12:50 Dose: 100 mls/hr Documented By: Infusion: 09/11/23 12:09 Dose: Infused Documented By: Admin: 09/11/23 11:09 Dose: 100 mls/hr Documented By: Infusion: 09/11/23 11:09 Dose: Infused Documented By: Admin: 09/11/23 10:17 Dose: 100 mls/hr Documented By: Infusion: 09/11/23 10:03 Dose: Infused Documented By: Admin: 09/11/23 09:03 Dose: 100 mls/hr Documented By: Infusion: 09/11/23 09:03 Dose: Infused Documented By: Admin: 09/11/23 08:12 Dose: 100 mls/hr Documented By: KARIS Insulin Human Lispro (Insulin Lispro 100 Unit/Ml 3ml Vial) 0 unit SUBCUT ACHS KEVAN; Protocol Last Admin: 09/09/23 12:20 Dose: Not Given Documented By: Admin: 09/09/23 09:03 Dose: 3 unit Documented By: NEVILLE Co-signed By: [facility] Insulin Human Lispro (Insulin Lispro 100 Unit/Ml 3ml Vial) 0 unit SUBCUT ACHS KEVAN; Protocol Last Admin: 09/10/23 15:46 Dose: Not Given Documented By: Admin: 09/10/23 08:44 Dose: 4 unit Documented By: JUAN Co-signed By: EMILIO Admin: 09/09/23 21:40 Dose: 2 unit Documented By: REBEL Co-signed By: NGOZI Admin: 09/09/23 18:40 Dose: Not Given Documented By: Admin: 09/09/23 12:02 Dose: 7 unit Documented By: AMTameka Co-signed By: MASSIMO Insulin Human Lispro (Insulin Lispro 100 Unit/Ml 3ml Vial) 0 unit SUBCUT ACHS [facility]; Protocol Last Admin: 09/12/23 11:44 Dose: 5 unit Documented By: KARIS Co-signed By: JAMEY Admin: 09/12/23 07:55 Dose: 3 unit Documented By: KARIS Co-signed By: JAMEY Admin: 09/11/23 20:24 Dose: 2 unit Documented By: Co-signed By: FRANCA Admin: 09/11/23 16:48 Dose: 1 unit Documented By: KARIS Co-signed By: KANDACE Admin: 09/11/23 11:19 Dose: 1 unit Documented By: KARIS Co-signed By: BT Admin: 09/11/23 07:55 Dose: Not Given Documented By: Admin: 09/10/23 21:06 Dose: 2 unit Documented By: MUSHTAQ Co-signed By: Admin: 09/10/23 17:26 Dose: 1 unit Documented By: MATT Co-signed By: LIZA Admin: 09/10/23 12:59 Dose: Not Given Documented By: MATT Insulin Human NPH (Insulin Nph 100 Unit/Ml 10ml Vial) 13 unit SUBCUT QACDINNER [facility] Insulin Human NPH (Insulin Nph 100 Unit/Ml 10ml Vial) 18 unit SUBCUT AC [facility] [place] Last Admin: 09/09/23 15:51 Dose: Not Given Documented By: AMV Insulin Human NPH (Insulin Nph 100 Unit/Ml 10ml Vial) 18 unit SUBCUT 0745 [facility] [place] Last Admin: 09/10/23 08:41 Dose: 18 unit Documented By: JUAN Co-signed By: EMILIO Insulin Human NPH (Insulin Nph 100 Unit/Ml 10ml Vial) 13 unit SUBCUT 1800 [facility] [place] Last Admin: 09/09/23 18:36 Dose: 12 unit Documented By: REBEL Co-signed By: BALBIR Insulin Human NPH (Insulin Nph 100 Unit/Ml 10ml Vial) 50 unit SUBCUT 0800 [facility] [place] Insulin Human NPH (Insulin Nph 100 Unit/Ml 10ml Vial) 50 unit SUBCUT 1700 [facility] [place] Insulin Human NPH (Insulin Nph 100 Unit/Ml 10ml Vial) 15 unit SUBCUT 0800 [facility] [place] Last Admin: 09/12/23 07:57 Dose: Not Given Documented By: Admin: 09/11/23 08:23 Dose: Not Given Documented By: KARIS Insulin Human NPH (Insulin Nph 100 Unit/Ml 10ml Vial) 15 unit SUBCUT 1700 [facility] [place] Last Admin: 09/11/23 16:46 Dose: Not Given Documented By: Admin: 09/10/23 17:29 Dose: 15 unit Documented By: MATT Co-signed By: LIZA Lisinopril (Lisinopril 20 Mg Tablet) 20 mg PO DAILY [facility] [place] Last Admin: 09/10/23 08:46 Dose: 20 mg Documented By: Admin: 09/09/23 09:33 Dose: 20 mg Documented By: AMTameka Lisinopril (Lisinopril 20 Mg Tablet) 40 mg PO DAILY [facility] [place] Last Admin: 09/12/23 09:16 Dose: 40 mg Documented By: Admin: 09/11/23 08:19 Dose: 40 mg Documented By: KARIS Magnesium Hydroxide (Magnesium Hydroxide 30 Ml Ud) 30 ml PO DAILY PRN PRN Reason: Constipation Last Admin: 09/11/23 15:19 Dose: 30 ml Documented By: KARIS Magnesium Oxide (Magnesium Oxide 400 Mg Tablet) 400 mg PO BID [facility] [place] Last Admin: 09/12/23 09:17 Dose: 400 mg Documented By: Admin: 09/11/23 20:19 Dose: 400 mg Documented By: Admin: 09/11/23 08:17 Dose: 400 mg Documented By: Admin: 09/10/23 20:59 Dose: 400 mg Documented By: Admin: 09/10/23 12:53 Dose: 400 mg Documented By: MATT Metformin HCl (Metformin Hcl 500 Mg Tablet) 1,000 mg PO 0800,1700 [facility] [place] Last Admin: 09/10/23 08:45 Dose: 1,000 mg Documented By: Admin: 09/09/23 18:41 Dose: 1,000 mg Documented By: Admin: 09/09/23 09:32 Dose: 1,000 mg Documented By: AMTameka Metformin HCl (Metformin Hcl 500 Mg Tablet) 1,000 mg PO BID [facility] [place] Last Admin: 09/12/23 09:17 Dose: 1,000 mg Documented By: Admin: 09/11/23 20:20 Dose: 1,000 mg Documented By: Admin: 09/11/23 08:18 Dose: 1,000 mg Documented By: Admin: 09/10/23 20:59 Dose: 1,000 mg Documented By: MUSHTAQ Metoprolol Succinate (Metoprolol Er 50 Mg Tablet) 100 mg PO BID [facility] [place] Last Admin: 09/12/23 09:16 Dose: 100 mg Documented By: Admin: 09/11/23 20:18 Dose: 100 mg Documented By: Admin: 09/11/23 08:19 Dose: 100 mg Documented By: Admin: 09/10/23 20:58 Dose: 100 mg Documented By: Admin: 09/10/23 08:45 Dose: 100 mg Documented By: Admin: 09/09/23 21:37 Dose: 100 mg Documented By: Admin: 09/09/23 09:32 Dose: 100 mg Documented By: Admin: 09/08/23 22:38 Dose: 100 mg Documented By: NGOZI Metoprolol Tartrate (Metoprolol Tartrate 5 Mg/5 Ml Inj) 5 mg IV NOW ONE Stop: 09/08/23 15:44 Last Admin: 09/08/23 15:52 Dose: 5 mg Documented By: TYRONE Metoprolol Tartrate (Metoprolol Tartrate 5 Mg/5 Ml Inj) 5 mg IV NOW ONE Stop: 09/08/23 22:17 Last Admin: 09/08/23 22:22 Dose: 5 mg Documented By: NGOZI Naloxone HCl (Naloxone 0.4 Mg/Ml Vial) 0.2 mg IV Q2MIN PRN PRN Reason: Opiate Reversal Potassium Chloride (Potassium Chloride 20 Meq Tab) 40 meq PO NOW ONE Stop: 09/08/23 09:06 Last Admin: 09/08/23 09:52 Dose: 40 meq Documented By: YOUSUF Potassium Chloride (Potassium Chloride 20 Meq Tab) 40 meq PO NOW ONE Stop: 09/10/23 01:03 Last Admin: 09/10/23 01:09 Dose: 40 meq Documented By: REBEL Potassium Chloride (Potassium Chloride 20 Meq Tab) 20 meq PO NOW ONE Stop: 09/10/23 09:14 Last Admin: 09/10/23 09:47 Dose: 20 meq Documented By: JUAN Potassium Chloride (Potassium Chloride 20 Meq Tab) 40 meq PO BIDWM [facility] [place] Last Admin: 09/12/23 09:17 Dose: 40 meq Documented By: Admin: 09/11/23 16:48 Dose: 40 meq Documented By: Admin: 09/11/23 08:12 Dose: 40 meq Documented By: KARIS Sennosides (Sennosides 8.6 Mg Tablet) 17.2 mg PO BEDTIME [facility] [place] Last Admin: 09/11/23 20:18 Dose: 17.2 mg Documented By: Admin: 09/10/23 20:59 Dose: 17.2 mg Documented By: MUSHTAQ Sodium Chloride (Sodium Chloride 0.9% Flush) 10 ml IV PRN PRN PRN Reason: Flush Sodium Chloride (Sodium Chloride 0.9% Flush) 10 ml IV BID [facility] [place] Last Admin: 09/12/23 09:18 Dose: 10 ml Documented By: Admin: 09/11/23 20:35 Dose: 10 ml Documented By: Vitamin D (Cholecalciferol (Vitamin D3) 5,000 Unit Tablet) 5,000 unit PO DAILY [facility] [place] Last Admin: 09/12/23 09:16 Dose: 5,000 unit Documented By: Admin: 09/11/23 08:21 Dose: 5,000 unit Documented By: KARIS Vital Signs Vital signs: Vital Signs - 8 hr 09/10/23 02:00 09/10/23 02:00 09/10/23 02:15 Pulse Rate 79 96 H Respiratory Rate 24 24 Blood Pressure 165/74 H Pulse Oximetry 96 96 09/10/23 02:30 09/10/23 02:30 09/10/23 02:45 Pulse Rate 78 86 Respiratory Rate 23 24 Blood Pressure 172/92 H Pulse Oximetry 94 96 09/10/23 03:00 09/10/23 03:00 09/10/23 03:15 Pulse Rate 94 H 87 Respiratory Rate 22 24 Blood Pressure 166/105 H Pulse Oximetry 95 94 09/10/23 03:30 09/10/23 03:30 09/10/23 03:45 Pulse Rate 81 86 Respiratory Rate 23 23 Blood Pressure 169/103 H Pulse Oximetry 95 94 09/10/23 04:00 09/10/23 04:00 09/10/23 04:15 Pulse Rate 87 82 Respiratory Rate 23 20 Blood Pressure 179/77 H Pulse Oximetry 95 95 09/10/23 04:30 09/10/23 04:30 09/10/23 04:45 Pulse Rate 77 75 Respiratory Rate 22 20 Blood Pressure 163/103 H Pulse Oximetry 96 94 09/10/23 05:00 09/10/23 05:00 09/10/23 05:15 Pulse Rate 92 H 104 H Respiratory Rate 22 21 Blood Pressure 146/104 H Pulse Oximetry 93 93 09/10/23 05:30 09/10/23 05:45 09/10/23 06:00 Pulse Rate 84 83 84 Respiratory Rate 24 22 20 Blood Pressure Pulse Oximetry 97 96 97 09/10/23 06:15 09/10/23 06:30 09/10/23 06:45 Pulse Rate 68 80 71 Respiratory Rate 20 21 18 Blood Pressure Pulse Oximetry 96 96 95 09/10/23 08:45 09/10/23 08:46 09/10/23 09:50 Pulse Rate 100 H 101 H 103 H Respiratory Rate Blood Pressure 198/86 H 198/86 H 160/103 H Pulse Oximetry <Jamilah Cohen, DO - Last Filed: 09/12/23 07:05> Orders Ordered: Discontinued Medications Acetaminophen (Acetaminophen 325 Mg Tablet) 650 mg PO Q6H PRN PRN Reason: Fever/Mild Pain (1-3) Apixaban (Apixaban 5 Mg Tablet) 5 mg PO BID [facility] [place] Last Admin: 09/12/23 09:16 Dose: 5 mg Documented By: Admin: 09/11/23 20:18 Dose: 5 mg Documented By: Admin: 09/11/23 08:18 Dose: 5 mg Documented By: Admin: 09/10/23 20:59 Dose: 5 mg Documented By: Admin: 09/10/23 12:53 Dose: 5 mg Documented By: MATT Aspirin (Aspirin 81 Mg Chew Tab) 324 mg PO NOW ONE Stop: 09/08/23 08:33 Last Admin: 09/08/23 08:37 Dose: Not Given Documented By: MILAGROS Aspirin (Aspirin 81 Mg Chew Tab) 243 mg PO NOW ONE Stop: 09/08/23 08:37 Last Admin: 09/08/23 08:40 Dose: 243 mg Documented By: MILAGROS Aspirin (Aspirin Ec 81 Mg Tablet) 81 mg PO DAILY [facility] [place] Last Admin: 09/12/23 09:17 Dose: 81 mg Documented By: Admin: 09/11/23 08:19 Dose: 81 mg Documented By: KARIS Atorvastatin Calcium (Atorvastatin 20 Mg Tablet) 10 mg PO DAILY [facility] [facility] Last Admin: 09/12/23 09:17 Dose: 10 mg Documented By: Admin: 09/11/23 08:18 Dose: 10 mg Documented By: Admin: 09/10/23 09:49 Dose: Not Given Documented By: SPF Bisacodyl (Bisacodyl 5 Mg Tablet) 10 mg PO DAILY PRN PRN Reason: Constipation Last Admin: 09/11/23 15:19 Dose: 10 mg Documented By: KARIS Chlorthalidone (Chlorthalidone 25 Mg Tablet) 12.5 mg PO SEEINSTR [facility] [place] Chlorthalidone (Chlorthalidone 25 Mg Tablet) 12.5 mg PO Q48H [facility] [place] Last Admin: 09/10/23 09:32 Dose: Not Given Documented By: SPF Diltiazem HCl (Diltiazem 5 Mg/Ml Sdv) 10 mg IV NOW ONE Stop: 09/09/23 07:47 Last Admin: 09/09/23 08:01 Dose: 10 mg Documented By: AMV Docusate Sodium (Docusate 100 Mg Capsule) 100 mg PO BID [facility] [place] Last Admin: 09/12/23 09:16 Dose: 100 mg Documented By: Admin: 09/11/23 20:18 Dose: 100 mg Documented By: Admin: 09/11/23 08:18 Dose: 100 mg Documented By: Admin: 09/10/23 20:59 Dose: 100 mg Documented By: SH Glimepiride (Glimepiride 2 Mg Tablet) 1 mg PO BID [facility] [place] Last Admin: 09/10/23 08:47 Dose: 1 mg Documented By: Admin: 09/09/23 21:37 Dose: 1 mg Documented By: SB Glimepiride (Glimepiride 2 Mg Tablet) 1 mg PO BID [facility] [place] Last Admin: 09/12/23 09:16 Dose: 1 mg Documented By: Admin: 09/11/23 20:19 Dose: 1 mg Documented By: Admin: 09/11/23 08:22 Dose: Not Given Documented By: Admin: 09/10/23 20:59 Dose: 1 mg Documented By: MUSHTAQ Heparin Sodium (Porcine) (Heparin 5,000 Unit/Ml Vial) 5,000 unit IV NOW ONE Stop: 09/08/23 12:30 Last Admin: 09/08/23 13:10 Dose: 5,000 unit Documented By: TYRONE Heparin Sodium (Porcine) (Heparin Flush (Cl/Picc/Mid-Line) 50 Unit/5 Ml Syringe) 50 unit IV PRN PRN PRN Reason: Flush Heparin Sodium (Porcine) (Heparin Flush (Cl/Picc/Mid-Line) 50 Unit/5 Ml Syringe) 50 unit IV BID KEVAN Last Admin: 09/12/23 09:18 Dose: 50 unit Documented By: Admin: 09/11/23 20:20 Dose: 50 unit Documented By: POTASSIUM CHLORIDE IN WATER (Potassium Cl 10 Meq/100 Ml Kimmie) 10 meq in 100 mls @ 100 mls/hr IV Q1H KEVAN Stop: 09/08/23 14:14 Last Infusion: 09/08/23 15:11 Dose: Infused Documented By: Admin: 09/08/23 13:51 Dose: 100 mls/hr Documented By: Infusion: 09/08/23 13:49 Dose: Infused Documented By: Admin: 09/08/23 12:40 Dose: 100 mls/hr Documented By: Infusion: 09/08/23 12:29 Dose: Infused Documented By: Admin: 09/08/23 11:32 Dose: 100 mls/hr Documented By: Infusion: 09/08/23 11:32 Dose: Infused Documented By: Admin: 09/08/23 10:33 Dose: 100 mls/hr Documented By: MILAGROS Heparin Sodium/Dextrose (Heparin Drip) 25,000 unit in 500 mls @ 23.079 mls/hr IV CONT KEVAN; Protocol Last Titration: 09/10/23 11:20 Dose: 0 units/kg/hr, 0 mls/hr Documented By: SPF Co-signed By: JOYCE Admin: 09/09/23 14:32 Dose: 10.4 units/kg/hr, 20 mls/hr Documented By: AMV Co-signed By: BALBIR Titration: 09/09/23 14:32 Dose: Infused Documented By: AMV Co-signed By: BALBIR Titration: 09/09/23 06:11 Dose: 10.4 units/kg/hr, 20 mls/hr Documented By: NGOZI Co-signed By: ANTHONY Titration: 09/09/23 05:25 Dose: 0 units/kg/hr, 0 mls/hr Documented By: NGOZI Co-signed By: GC Admin: 09/08/23 13:14 Dose: 10.4 units/kg/hr, 20 mls/hr Documented By: TYRONE Co-signed By: YOUSUF POTASSIUM CHLORIDE IN WATER (Potassium Cl 10 Meq/100 Ml Kimmie) 10 meq in 100 mls @ 100 mls/hr IV Q1H KEVAN Stop: 09/09/23 12:29 Last Infusion: 09/09/23 15:40 Dose: Infused Documented By: Admin: 09/09/23 14:35 Dose: 100 mls/hr Documented By: Infusion: 09/09/23 14:27 Dose: Infused Documented By: Admin: 09/09/23 13:27 Dose: 100 mls/hr Documented By: Infusion: 09/09/23 13:25 Dose: Infused Documented By: Admin: 09/09/23 12:20 Dose: 100 mls/hr Documented By: Infusion: 09/09/23 12:20 Dose: Infused Documented By: Admin: 09/09/23 11:21 Dose: 100 mls/hr Documented By: Infusion: 09/09/23 11:16 Dose: Infused Documented By: Admin: 09/09/23 10:16 Dose: 100 mls/hr Documented By: Infusion: 09/09/23 10:16 Dose: Infused Documented By: Admin: 09/09/23 09:22 Dose: 100 mls/hr Documented By: AMV Magnesium Sulfate (Magnesium Sulfate) 2 gm in 50 mls @ 25 mls/hr IV NOW ONE Stop: 09/09/23 09:07 Last Infusion: 09/09/23 11:12 Dose: Infused Documented By: AMV Co-signed By: [facility] Admin: 09/09/23 09:26 Dose: 25 mls/hr Documented By: AMV Co-signed By: MAIA DILTIAZEM (Diltiazem 125 Mg/125 Ml-D5w) 125 mg in 125 mls @ 5 mls/hr IV TITRATE KEVAN; Protocol Last Titration: 09/09/23 16:19 Dose: 0 mg/hr, 0 mls/hr Documented By: Titration: 09/09/23 12:10 Dose: 5 mg/hr, 5 mls/hr Documented By: Titration: 09/09/23 08:33 Dose: 10 mg/hr, 10 mls/hr Documented By: Admin: 09/09/23 08:01 Dose: 5 mg/hr, 5 mls/hr Documented By: AMV Dextrose (D10w) 100 mls @ 1,200 mls/hr IV PRN PRN PRN Reason: Hypoglycemia Magnesium Sulfate (Magnesium Sulfate) 2 gm in 50 mls @ 25 mls/hr IV NOW ONE Stop: 09/10/23 11:11 Last Infusion: 09/10/23 11:23 Dose: 0 mls/hr Documented By: JUAN Co-signed By: JOYCE Admin: 09/10/23 09:47 Dose: 25 mls/hr Documented By: JUAN Co-signed By: ANTHONY POTASSIUM CHLORIDE IN WATER (Potassium Cl 10 Meq/100 Ml Kimmie) 10 meq in 100 mls @ 100 mls/hr IV Q1H KEVAN Stop: 09/10/23 18:14 Last Admin: 09/10/23 18:47 Dose: 100 mls/hr Documented By: Infusion: 09/10/23 18:45 Dose: Infused Documented By: Admin: 09/10/23 17:45 Dose: 100 mls/hr Documented By: Infusion: 09/10/23 17:37 Dose: Infused Documented By: Admin: 09/10/23 16:37 Dose: 100 mls/hr Documented By: Infusion: 09/10/23 16:30 Dose: Infused Documented By: Admin: 09/10/23 15:30 Dose: 100 mls/hr Documented By: Infusion: 09/10/23 15:22 Dose: Infused Documented By: Admin: 09/10/23 14:22 Dose: 100 mls/hr Documented By: Infusion: 09/10/23 13:55 Dose: Infused Documented By: Admin: 09/10/23 12:55 Dose: 100 mls/hr Documented By: CLL Dextrose (D10w) 100 mls @ 1,200 mls/hr IV PRN PRN PRN Reason: Hypoglycemia POTASSIUM CHLORIDE IN WATER (Potassium Cl 10 Meq/100 Ml Kimmie) 10 meq in 100 mls @ 100 mls/hr IV Q1H KEVAN Stop: 09/11/23 14:59 Last Admin: 09/11/23 13:53 Dose: Not Given Documented By: Infusion: 09/11/23 13:53 Dose: Infused Documented By: Admin: 09/11/23 13:52 Dose: Not Given Documented By: Admin: 09/11/23 12:50 Dose: 100 mls/hr Documented By: Infusion: 09/11/23 12:09 Dose: Infused Documented By: Admin: 09/11/23 11:09 Dose: 100 mls/hr Documented By: Infusion: 09/11/23 11:09 Dose: Infused Documented By: Admin: 09/11/23 10:17 Dose: 100 mls/hr Documented By: Infusion: 09/11/23 10:03 Dose: Infused Documented By: Admin: 09/11/23 09:03 Dose: 100 mls/hr Documented By: Infusion: 09/11/23 09:03 Dose: Infused Documented By: Admin: 09/11/23 08:12 Dose: 100 mls/hr Documented By: KARIS Insulin Human Lispro (Insulin Lispro 100 Unit/Ml 3ml Vial) 0 unit SUBCUT [facility]; Protocol Last Admin: 09/09/23 12:20 Dose: Not Given Documented By: Admin: 09/09/23 09:03 Dose: 3 unit Documented By: AMTameka Co-signed By: JULIÁN Insulin Human Lispro (Insulin Lispro 100 Unit/Ml 3ml Vial) 0 unit SUBCUT [facility]; Protocol Last Admin: 09/10/23 15:46 Dose: Not Given Documented By: Admin: 09/10/23 08:44 Dose: 4 unit Documented By: JUAN Co-signed By: EMILIO Admin: 09/09/23 21:40 Dose: 2 unit Documented By: REBEL Co-signed By: NGOZI Admin: 09/09/23 18:40 Dose: Not Given Documented By: Admin: 09/09/23 12:02 Dose: 7 unit Documented By: AMV Co-signed By: JULIÁN Insulin Human Lispro (Insulin Lispro 100 Unit/Ml 3ml Vial) 0 unit SUBCUT ACHS [facility] [place]; Protocol Last Admin: 09/12/23 11:44 Dose: 5 unit Documented By: KARIS Co-signed By: JAMEY Admin: 09/12/23 07:55 Dose: 3 unit Documented By: KARIS Co-signed By: JAMEY Admin: 09/11/23 20:24 Dose: 2 unit Documented By: Co-signed By: FRANCA Admin: 09/11/23 16:48 Dose: 1 unit Documented By: KARIS Co-signed By: KANDACE Admin: 09/11/23 11:19 Dose: 1 unit Documented By: KARIS Co-signed By: BT Admin: 09/11/23 07:55 Dose: Not Given Documented By: Admin: 09/10/23 21:06 Dose: 2 unit Documented By: SH Co-signed By: Admin: 09/10/23 17:26 Dose: 1 unit Documented By: MATT Co-signed By: LIZA Admin: 09/10/23 12:59 Dose: Not Given Documented By: MATT Insulin Human NPH (Insulin Nph 100 Unit/Ml 10ml Vial) 13 unit SUBCUT [facility]ACDINNER [facility] [place] Insulin Human NPH (Insulin Nph 100 Unit/Ml 10ml Vial) 18 unit SUBCUT AC [facility] [place] Last Admin: 09/09/23 15:51 Dose: Not Given Documented By: AMV Insulin Human NPH (Insulin Nph 100 Unit/Ml 10ml Vial) 18 unit SUBCUT 0745 [facility] [place] Last Admin: 09/10/23 08:41 Dose: 18 unit Documented By: SPF Co-signed By: RLH Insulin Human NPH (Insulin Nph 100 Unit/Ml 10ml Vial) 13 unit SUBCUT 1800 [facility] [place] Last Admin: 09/09/23 18:36 Dose: 12 unit Documented By: SB Co-signed By: BS Insulin Human NPH (Insulin Nph 100 Unit/Ml 10ml Vial) 50 unit SUBCUT 0800 KEVAN Insulin Human NPH (Insulin Nph 100 Unit/Ml 10ml Vial) 50 unit SUBCUT 1700 KEVAN Insulin Human NPH (Insulin Nph 100 Unit/Ml 10ml Vial) 15 unit SUBCUT 0800 [facility] [place] Last Admin: 09/12/23 07:57 Dose: Not Given Documented By: Admin: 09/11/23 08:23 Dose: Not Given Documented By: KARIS Insulin Human NPH (Insulin Nph 100 Unit/Ml 10ml Vial) 15 unit SUBCUT 1700 [facility] [place] Last Admin: 09/11/23 16:46 Dose: Not Given Documented By: Admin: 09/10/23 17:29 Dose: 15 unit Documented By: MATT Co-signed By: LIZA Lisinopril (Lisinopril 20 Mg Tablet) 20 mg PO DAILY [facility] [place] Last Admin: 09/10/23 08:46 Dose: 20 mg Documented By: Admin: 09/09/23 09:33 Dose: 20 mg Documented By: AMV Lisinopril (Lisinopril 20 Mg Tablet) 40 mg PO DAILY [facility] [place] Last Admin: 09/12/23 09:16 Dose: 40 mg Documented By: Admin: 09/11/23 08:19 Dose: 40 mg Documented By: KARIS Magnesium Hydroxide (Magnesium Hydroxide 30 Ml Udc) 30 ml PO DAILY PRN PRN Reason: Constipation Last Admin: 09/11/23 15:19 Dose: 30 ml Documented By: KARIS Magnesium Oxide (Magnesium Oxide 400 Mg Tablet) 400 mg PO BID [facility] [place] Last Admin: 09/12/23 09:17 Dose: 400 mg Documented By: Admin: 09/11/23 20:19 Dose: 400 mg Documented By: Admin: 09/11/23 08:17 Dose: 400 mg Documented By: Admin: 09/10/23 20:59 Dose: 400 mg Documented By: Admin: 09/10/23 12:53 Dose: 400 mg Documented By: MATT Metformin HCl (Metformin Hcl 500 Mg Tablet) 1,000 mg PO 0800,1700 [facility] [place] Last Admin: 09/10/23 08:45 Dose: 1,000 mg Documented By: Admin: 09/09/23 18:41 Dose: 1,000 mg Documented By: Admin: 09/09/23 09:32 Dose: 1,000 mg Documented By: NEVILLE Metformin HCl (Metformin Hcl 500 Mg Tablet) 1,000 mg PO BID [facility] [place] Last Admin: 09/12/23 09:17 Dose: 1,000 mg Documented By: Admin: 09/11/23 20:20 Dose: 1,000 mg Documented By: Admin: 09/11/23 08:18 Dose: 1,000 mg Documented By: Admin: 09/10/23 20:59 Dose: 1,000 mg Documented By: MUSHTAQ Metoprolol Succinate (Metoprolol Er 50 Mg Tablet) 100 mg PO BID [facility] [place] Last Admin: 09/12/23 09:16 Dose: 100 mg Documented By: Admin: 09/11/23 20:18 Dose: 100 mg Documented By: Admin: 09/11/23 08:19 Dose: 100 mg Documented By: Admin: 09/10/23 20:58 Dose: 100 mg Documented By: Admin: 09/10/23 08:45 Dose: 100 mg Documented By: Admin: 09/09/23 21:37 Dose: 100 mg Documented By: Admin: 09/09/23 09:32 Dose: 100 mg Documented By: Admin: 09/08/23 22:38 Dose: 100 mg Documented By: NGOZI Metoprolol Tartrate (Metoprolol Tartrate 5 Mg/5 Ml Inj) 5 mg IV NOW ONE Stop: 09/08/23 15:44 Last Admin: 09/08/23 15:52 Dose: 5 mg Documented By: TYRONE Metoprolol Tartrate (Metoprolol Tartrate 5 Mg/5 Ml Inj) 5 mg IV NOW ONE Stop: 09/08/23 22:17 Last Admin: 09/08/23 22:22 Dose: 5 mg Documented By: NGOZI Naloxone HCl (Naloxone 0.4 Mg/Ml Vial) 0.2 mg IV Q2MIN PRN PRN Reason: Opiate Reversal Potassium Chloride (Potassium Chloride 20 Meq Tab) 40 meq PO NOW ONE Stop: 09/08/23 09:06 Last Admin: 09/08/23 09:52 Dose: 40 meq Documented By: YOUSUF Potassium Chloride (Potassium Chloride 20 Meq Tab) 40 meq PO NOW ONE Stop: 09/10/23 01:03 Last Admin: 09/10/23 01:09 Dose: 40 meq Documented By: REBEL Potassium Chloride (Potassium Chloride 20 Meq Tab) 20 meq PO NOW ONE Stop: 09/10/23 09:14 Last Admin: 09/10/23 09:47 Dose: 20 meq Documented By: JUAN Potassium Chloride (Potassium Chloride 20 Meq Tab) 40 meq PO BIDWM [facility] [place] Last Admin: 09/12/23 09:17 Dose: 40 meq Documented By: Admin: 09/11/23 16:48 Dose: 40 meq Documented By: Admin: 09/11/23 08:12 Dose: 40 meq Documented By: YAD Sennosides (Sennosides 8.6 Mg Tablet) 17.2 mg PO BEDTIME [facility] [place] Last Admin: 09/11/23 20:18 Dose: 17.2 mg Documented By: Admin: 09/10/23 20:59 Dose: 17.2 mg Documented By: MUSHTAQ Sodium Chloride (Sodium Chloride 0.9% Flush) 10 ml IV PRN PRN PRN Reason: Flush Sodium Chloride (Sodium Chloride 0.9% Flush) 10 ml IV BID [facility] [place] Last Admin: 09/12/23 09:18 Dose: 10 ml Documented By: Admin: 09/11/23 20:35 Dose: 10 ml Documented By: Vitamin D (Cholecalciferol (Vitamin D3) 5,000 Unit Tablet) 5,000 unit PO DAILY [facility] [place] Last Admin: 09/12/23 09:16 Dose: 5,000 unit Documented By: Admin: 09/11/23 08:21 Dose: 5,000 unit Documented By: KARIS Vital Signs Vital signs: Vital Signs - 8 hr 09/10/23 02:00 09/10/23 02:00 09/10/23 02:15 Pulse Rate 79 96 H Respiratory Rate 24 24 Blood Pressure 165/74 H Pulse Oximetry 96 96 09/10/23 02:30 09/10/23 02:30 09/10/23 02:45 Pulse Rate 78 86 Respiratory Rate 23 24 Blood Pressure 172/92 H Pulse Oximetry 94 96 09/10/23 03:00 09/10/23 03:00 09/10/23 03:15 Pulse Rate 94 H 87 Respiratory Rate 22 24 Blood Pressure 166/105 H Pulse Oximetry 95 94 09/10/23 03:30 09/10/23 03:30 09/10/23 03:45 Pulse Rate 81 86 Respiratory Rate 23 23 Blood Pressure 169/103 H Pulse Oximetry 95 94 09/10/23 04:00 09/10/23 04:00 09/10/23 04:15 Pulse Rate 87 82 Respiratory Rate 23 20 Blood Pressure 179/77 H Pulse Oximetry 95 95 09/10/23 04:30 09/10/23 04:30 09/10/23 04:45 Pulse Rate 77 75 Respiratory Rate 22 20 Blood Pressure 163/103 H Pulse Oximetry 96 94 09/10/23 05:00 09/10/23 05:00 09/10/23 05:15 Pulse Rate 92 H 104 H Respiratory Rate 22 21 Blood Pressure 146/104 H Pulse Oximetry 93 93 09/10/23 05:30 09/10/23 05:45 09/10/23 06:00 Pulse Rate 84 83 84 Respiratory Rate 24 22 20 Blood Pressure Pulse Oximetry 97 96 97 09/10/23 06:15 09/10/23 06:30 09/10/23 06:45 Pulse Rate 68 80 71 Respiratory Rate 20 21 18 Blood Pressure Pulse Oximetry 96 96 95 09/10/23 08:45 09/10/23 08:46 09/10/23 09:50 Pulse Rate 100 H 101 H 103 H Respiratory Rate Blood Pressure 198/86 H 198/86 H 160/103 H Pulse Oximetry <Dru Marino DO - Last Filed: 09/09/23 18:06> Orders Ordered: Discontinued Medications Acetaminophen (Acetaminophen 325 Mg Tablet) 650 mg PO Q6H PRN PRN Reason: Fever/Mild Pain (1-3) Apixaban (Apixaban 5 Mg Tablet) 5 mg PO BID [facility] [place] Last Admin: 09/12/23 09:16 Dose: 5 mg Documented By: Admin: 09/11/23 20:18 Dose: 5 mg Documented By: Admin: 09/11/23 08:18 Dose: 5 mg Documented By: Admin: 09/10/23 20:59 Dose: 5 mg Documented By: Admin: 09/10/23 12:53 Dose: 5 mg Documented By: MATT Aspirin (Aspirin 81 Mg Chew Tab) 324 mg PO NOW ONE Stop: 09/08/23 08:33 Last Admin: 09/08/23 08:37 Dose: Not Given Documented By: MILAGROS Aspirin (Aspirin 81 Mg Chew Tab) 243 mg PO NOW ONE Stop: 09/08/23 08:37 Last Admin: 09/08/23 08:40 Dose: 243 mg Documented By: MILAGROS Aspirin (Aspirin Ec 81 Mg Tablet) 81 mg PO DAILY [facility] [place] Last Admin: 09/12/23 09:17 Dose: 81 mg Documented By: Admin: 09/11/23 08:19 Dose: 81 mg Documented By: KARIS Atorvastatin Calcium (Atorvastatin 20 Mg Tablet) 10 mg PO DAILY [facility] [place] Last Admin: 09/12/23 09:17 Dose: 10 mg Documented By: Admin: 09/11/23 08:18 Dose: 10 mg Documented By: Admin: 09/10/23 09:49 Dose: Not Given Documented By: SPF Bisacodyl (Bisacodyl 5 Mg Tablet) 10 mg PO DAILY PRN PRN Reason: Constipation Last Admin: 09/11/23 15:19 Dose: 10 mg Documented By: KARIS Chlorthalidone (Chlorthalidone 25 Mg Tablet) 12.5 mg PO SEEINSTR [facility] [place] Chlorthalidone (Chlorthalidone 25 Mg Tablet) 12.5 mg PO Q48H [facility] [place] Last Admin: 09/10/23 09:32 Dose: Not Given Documented By: SPF Diltiazem HCl (Diltiazem 5 Mg/Ml Sdv) 10 mg IV NOW ONE Stop: 09/09/23 07:47 Last Admin: 09/09/23 08:01 Dose: 10 mg Documented By: AMV Docusate Sodium (Docusate 100 Mg Capsule) 100 mg PO BID [facility] [place] Last Admin: 09/12/23 09:16 Dose: 100 mg Documented By: Admin: 09/11/23 20:18 Dose: 100 mg Documented By: Admin: 09/11/23 08:18 Dose: 100 mg Documented By: Admin: 09/10/23 20:59 Dose: 100 mg Documented By: SH Glimepiride (Glimepiride 2 Mg Tablet) 1 mg PO BID [facility] [place] Last Admin: 09/10/23 08:47 Dose: 1 mg Documented By: Admin: 09/09/23 21:37 Dose: 1 mg Documented By: SB Glimepiride (Glimepiride 2 Mg Tablet) 1 mg PO BID [facility] [place] Last Admin: 09/12/23 09:16 Dose: 1 mg Documented By: Admin: 09/11/23 20:19 Dose: 1 mg Documented By: Admin: 09/11/23 08:22 Dose: Not Given Documented By: Admin: 09/10/23 20:59 Dose: 1 mg Documented By: SH Heparin Sodium (Porcine) (Heparin 5,000 Unit/Ml Vial) 5,000 unit IV NOW ONE Stop: 09/08/23 12:30 Last Admin: 09/08/23 13:10 Dose: 5,000 unit Documented By: MPO Heparin Sodium (Porcine) (Heparin Flush (Cl/Picc/Mid-Line) 50 Unit/5 Ml Syringe) 50 unit IV PRN PRN PRN Reason: Flush Heparin Sodium (Porcine) (Heparin Flush (Cl/Picc/Mid-Line) 50 Unit/5 Ml Syringe) 50 unit IV BID KEVAN Last Admin: 09/12/23 09:18 Dose: 50 unit Documented By: Admin: 09/11/23 20:20 Dose: 50 unit Documented By: SR POTASSIUM CHLORIDE IN WATER (Potassium Cl 10 Meq/100 Ml Kimmie) 10 meq in 100 mls @ 100 mls/hr IV Q1H KEVAN Stop: 09/08/23 14:14 Last Infusion: 09/08/23 15:11 Dose: Infused Documented By: Admin: 09/08/23 13:51 Dose: 100 mls/hr Documented By: Infusion: 09/08/23 13:49 Dose: Infused Documented By: Admin: 09/08/23 12:40 Dose: 100 mls/hr Documented By: Infusion: 09/08/23 12:29 Dose: Infused Documented By: Admin: 09/08/23 11:32 Dose: 100 mls/hr Documented By: Infusion: 09/08/23 11:32 Dose: Infused Documented By: Admin: 09/08/23 10:33 Dose: 100 mls/hr Documented By: MILAGROS Heparin Sodium/Dextrose (Heparin Drip) 25,000 unit in 500 mls @ 23.079 mls/hr IV CONT KEVAN; Protocol Last Titration: 09/10/23 11:20 Dose: 0 units/kg/hr, 0 mls/hr Documented By: SPF Co-signed By: JOYCE Admin: 09/09/23 14:32 Dose: 10.4 units/kg/hr, 20 mls/hr Documented By: AMTameka Co-signed By: BALBIR Titration: 09/09/23 14:32 Dose: Infused Documented By: AMTameka Co-signed By: BALBIR Titration: 09/09/23 06:11 Dose: 10.4 units/kg/hr, 20 mls/hr Documented By: NGOZI Co-signed By: ANTHONY Titration: 09/09/23 05:25 Dose: 0 units/kg/hr, 0 mls/hr Documented By: NGOZI Co-signed By: GC Admin: 09/08/23 13:14 Dose: 10.4 units/kg/hr, 20 mls/hr Documented By: MPO Co-signed By: YOUSUF POTASSIUM CHLORIDE IN WATER (Potassium Cl 10 Meq/100 Ml Kimmie) 10 meq in 100 mls @ 100 mls/hr IV Q1H KEVAN Stop: 09/09/23 12:29 Last Infusion: 09/09/23 15:40 Dose: Infused Documented By: Admin: 09/09/23 14:35 Dose: 100 mls/hr Documented By: Infusion: 09/09/23 14:27 Dose: Infused Documented By: Admin: 09/09/23 13:27 Dose: 100 mls/hr Documented By: Infusion: 09/09/23 13:25 Dose: Infused Documented By: Admin: 09/09/23 12:20 Dose: 100 mls/hr Documented By: Infusion: 09/09/23 12:20 Dose: Infused Documented By: Admin: 09/09/23 11:21 Dose: 100 mls/hr Documented By: Infusion: 09/09/23 11:16 Dose: Infused Documented By: Admin: 09/09/23 10:16 Dose: 100 mls/hr Documented By: Infusion: 09/09/23 10:16 Dose: Infused Documented By: Admin: 09/09/23 09:22 Dose: 100 mls/hr Documented By: AMV Magnesium Sulfate (Magnesium Sulfate) 2 gm in 50 mls @ 25 mls/hr IV NOW ONE Stop: 09/09/23 09:07 Last Infusion: 09/09/23 11:12 Dose: Infused Documented By: AMV Co-signed By: JULIÁN Admin: 09/09/23 09:26 Dose: 25 mls/hr Documented By: AMV Co-signed By: MAIA DILTIAZEM (Diltiazem 125 Mg/125 Ml-D5w) 125 mg in 125 mls @ 5 mls/hr IV TITRATE KEVAN; Protocol Last Titration: 09/09/23 16:19 Dose: 0 mg/hr, 0 mls/hr Documented By: Titration: 09/09/23 12:10 Dose: 5 mg/hr, 5 mls/hr Documented By: Titration: 09/09/23 08:33 Dose: 10 mg/hr, 10 mls/hr Documented By: Admin: 09/09/23 08:01 Dose: 5 mg/hr, 5 mls/hr Documented By: AMTameka Dextrose (D10w) 100 mls @ 1,200 mls/hr IV PRN PRN PRN Reason: Hypoglycemia Magnesium Sulfate (Magnesium Sulfate) 2 gm in 50 mls @ 25 mls/hr IV NOW ONE Stop: 09/10/23 11:11 Last Infusion: 09/10/23 11:23 Dose: 0 mls/hr Documented By: SPF Co-signed By: JOYCE Admin: 09/10/23 09:47 Dose: 25 mls/hr Documented By: SPF Co-signed By: ANTHONY POTASSIUM CHLORIDE IN WATER (Potassium Cl 10 Meq/100 Ml Kimmie) 10 meq in 100 mls @ 100 mls/hr IV Q1H KEVAN Stop: 09/10/23 18:14 Last Admin: 09/10/23 18:47 Dose: 100 mls/hr Documented By: Infusion: 09/10/23 18:45 Dose: Infused Documented By: Admin: 09/10/23 17:45 Dose: 100 mls/hr Documented By: Infusion: 09/10/23 17:37 Dose: Infused Documented By: Admin: 09/10/23 16:37 Dose: 100 mls/hr Documented By: Infusion: 09/10/23 16:30 Dose: Infused Documented By: Admin: 09/10/23 15:30 Dose: 100 mls/hr Documented By: Infusion: 09/10/23 15:22 Dose: Infused Documented By: Admin: 09/10/23 14:22 Dose: 100 mls/hr Documented By: Infusion: 09/10/23 13:55 Dose: Infused Documented By: Admin: 09/10/23 12:55 Dose: 100 mls/hr Documented By: CLL Dextrose (D10w) 100 mls @ 1,200 mls/hr IV PRN PRN PRN Reason: Hypoglycemia POTASSIUM CHLORIDE IN WATER (Potassium Cl 10 Meq/100 Ml Kimmie) 10 meq in 100 mls @ 100 mls/hr IV Q1H KEVAN Stop: 09/11/23 14:59 Last Admin: 09/11/23 13:53 Dose: Not Given Documented By: Infusion: 09/11/23 13:53 Dose: Infused Documented By: Admin: 09/11/23 13:52 Dose: Not Given Documented By: Admin: 09/11/23 12:50 Dose: 100 mls/hr Documented By: Infusion: 09/11/23 12:09 Dose: Infused Documented By: Admin: 09/11/23 11:09 Dose: 100 mls/hr Documented By: Infusion: 09/11/23 11:09 Dose: Infused Documented By: Admin: 09/11/23 10:17 Dose: 100 mls/hr Documented By: Infusion: 09/11/23 10:03 Dose: Infused Documented By: Admin: 09/11/23 09:03 Dose: 100 mls/hr Documented By: Infusion: 09/11/23 09:03 Dose: Infused Documented By: Admin: 09/11/23 08:12 Dose: 100 mls/hr Documented By: KARIS Insulin Human Lispro (Insulin Lispro 100 Unit/Ml 3ml Vial) 0 unit SUBCUT ACHS [facility] [place]; Protocol Last Admin: 09/09/23 12:20 Dose: Not Given Documented By: AMTameka Admin: 09/09/23 09:03 Dose: 3 unit Documented By: AMTameka Co-signed By: [facility] Insulin Human Lispro (Insulin Lispro 100 Unit/Ml 3ml Vial) 0 unit SUBCUT ACHS [facility] [place]; Protocol Last Admin: 09/10/23 15:46 Dose: Not Given Documented By: Admin: 09/10/23 08:44 Dose: 4 unit Documented By: SPF Co-signed By: EMILIO Admin: 09/09/23 21:40 Dose: 2 unit Documented By: REBEL Co-signed By: NGOZI Admin: 09/09/23 18:40 Dose: Not Given Documented By: Admin: 09/09/23 12:02 Dose: 7 unit Documented By: AMV Co-signed By: [facility] Insulin Human Lispro (Insulin Lispro 100 Unit/Ml 3ml Vial) 0 unit SUBCUT ACHS [facility] [place]; Protocol Last Admin: 09/12/23 11:44 Dose: 5 unit Documented By: KARIS Co-signed By: JAMEY Admin: 09/12/23 07:55 Dose: 3 unit Documented By: KARIS Co-signed By: JAMEY Admin: 09/11/23 20:24 Dose: 2 unit Documented By: SR Co-signed By: FRANCA Admin: 09/11/23 16:48 Dose: 1 unit Documented By: KARIS Co-signed By: KANDACE Admin: 09/11/23 11:19 Dose: 1 unit Documented By: KARIS Co-signed By: JORDEN Admin: 09/11/23 07:55 Dose: Not Given Documented By: Admin: 09/10/23 21:06 Dose: 2 unit Documented By: MUSHTAQ Co-signed By: Admin: 09/10/23 17:26 Dose: 1 unit Documented By: MATT Co-signed By: LIZA Admin: 09/10/23 12:59 Dose: Not Given Documented By: MATT Insulin Human NPH (Insulin Nph 100 Unit/Ml 10ml Vial) 13 unit SUBCUT QACDINNER [facility] Insulin Human NPH (Insulin Nph 100 Unit/Ml 10ml Vial) 18 unit SUBCUT AC [facility] [place] Last Admin: 09/09/23 15:51 Dose: Not Given Documented By: AMV Insulin Human NPH (Insulin Nph 100 Unit/Ml 10ml Vial) 18 unit SUBCUT 0745 [facility] [place] Last Admin: 09/10/23 08:41 Dose: 18 unit Documented By: JUAN Co-signed By: RL Insulin Human NPH (Insulin Nph 100 Unit/Ml 10ml Vial) 13 unit SUBCUT 1800 [facility] [place] Last Admin: 09/09/23 18:36 Dose: 12 unit Documented By: REBEL Co-signed By: BALBIR Insulin Human NPH (Insulin Nph 100 Unit/Ml 10ml Vial) 50 unit SUBCUT 0800 [facility] [place] Insulin Human NPH (Insulin Nph 100 Unit/Ml 10ml Vial) 50 unit SUBCUT 1700 [facility] [place] Insulin Human NPH (Insulin Nph 100 Unit/Ml 10ml Vial) 15 unit SUBCUT 0800 [facility] [place] Last Admin: 09/12/23 07:57 Dose: Not Given Documented By: Admin: 09/11/23 08:23 Dose: Not Given Documented By: KARIS Insulin Human NPH (Insulin Nph 100 Unit/Ml 10ml Vial) 15 unit SUBCUT 1700 [facility] [place] Last Admin: 09/11/23 16:46 Dose: Not Given Documented By: Admin: 09/10/23 17:29 Dose: 15 unit Documented By: MATT Co-signed By: LIZA Lisinopril (Lisinopril 20 Mg Tablet) 20 mg PO DAILY [facility] [place] Last Admin: 09/10/23 08:46 Dose: 20 mg Documented By: Admin: 09/09/23 09:33 Dose: 20 mg Documented By: AMV Lisinopril (Lisinopril 20 Mg Tablet) 40 mg PO DAILY [facility] [place] Last Admin: 09/12/23 09:16 Dose: 40 mg Documented By: Admin: 09/11/23 08:19 Dose: 40 mg Documented By: KARIS Magnesium Hydroxide (Magnesium Hydroxide 30 Ml Udc) 30 ml PO DAILY PRN PRN Reason: Constipation Last Admin: 09/11/23 15:19 Dose: 30 ml Documented By: KARIS Magnesium Oxide (Magnesium Oxide 400 Mg Tablet) 400 mg PO BID [facility] [place] Last Admin: 09/12/23 09:17 Dose: 400 mg Documented By: Admin: 09/11/23 20:19 Dose: 400 mg Documented By: Admin: 09/11/23 08:17 Dose: 400 mg Documented By: Admin: 09/10/23 20:59 Dose: 400 mg Documented By: Admin: 09/10/23 12:53 Dose: 400 mg Documented By: CLL Metformin HCl (Metformin Hcl 500 Mg Tablet) 1,000 mg PO 0800,1700 [facility] [place] Last Admin: 09/10/23 08:45 Dose: 1,000 mg Documented By: Admin: 09/09/23 18:41 Dose: 1,000 mg Documented By: Admin: 09/09/23 09:32 Dose: 1,000 mg Documented By: AMV Metformin HCl (Metformin Hcl 500 Mg Tablet) 1,000 mg PO BID [facility] [place] Last Admin: 09/12/23 09:17 Dose: 1,000 mg Documented By: YAEphraim Admin: 09/11/23 20:20 Dose: 1,000 mg Documented By: Admin: 09/11/23 08:18 Dose: 1,000 mg Documented By: Admin: 09/10/23 20:59 Dose: 1,000 mg Documented By: SH Metoprolol Succinate (Metoprolol Er 50 Mg Tablet) 100 mg PO BID [facility] [place] Last Admin: 09/12/23 09:16 Dose: 100 mg Documented By: Admin: 09/11/23 20:18 Dose: 100 mg Documented By: Admin: 09/11/23 08:19 Dose: 100 mg Documented By: YAEphraim Admin: 09/10/23 20:58 Dose: 100 mg Documented By: Admin: 09/10/23 08:45 Dose: 100 mg Documented By: Admin: 09/09/23 21:37 Dose: 100 mg Documented By: Admin: 09/09/23 09:32 Dose: 100 mg Documented By: Admin: 09/08/23 22:38 Dose: 100 mg Documented By: NGOZI Metoprolol Tartrate (Metoprolol Tartrate 5 Mg/5 Ml Inj) 5 mg IV NOW ONE Stop: 09/08/23 15:44 Last Admin: 09/08/23 15:52 Dose: 5 mg Documented By: TYRONE Metoprolol Tartrate (Metoprolol Tartrate 5 Mg/5 Ml Inj) 5 mg IV NOW ONE Stop: 09/08/23 22:17 Last Admin: 09/08/23 22:22 Dose: 5 mg Documented By: NGOZI Naloxone HCl (Naloxone 0.4 Mg/Ml Vial) 0.2 mg IV Q2MIN PRN PRN Reason: Opiate Reversal Potassium Chloride (Potassium Chloride 20 Meq Tab) 40 meq PO NOW ONE Stop: 09/08/23 09:06 Last Admin: 09/08/23 09:52 Dose: 40 meq Documented By: YOUSUF Potassium Chloride (Potassium Chloride 20 Meq Tab) 40 meq PO NOW ONE Stop: 09/10/23 01:03 Last Admin: 09/10/23 01:09 Dose: 40 meq Documented By: REBEL Potassium Chloride (Potassium Chloride 20 Meq Tab) 20 meq PO NOW ONE Stop: 09/10/23 09:14 Last Admin: 09/10/23 09:47 Dose: 20 meq Documented By: JUAN Potassium Chloride (Potassium Chloride 20 Meq Tab) 40 meq PO BIDWM [facility] [place] Last Admin: 09/12/23 09:17 Dose: 40 meq Documented By: Admin: 09/11/23 16:48 Dose: 40 meq Documented By: Admin: 09/11/23 08:12 Dose: 40 meq Documented By: KARIS Sennosides (Sennosides 8.6 Mg Tablet) 17.2 mg PO BEDTIME [facility] [place] Last Admin: 09/11/23 20:18 Dose: 17.2 mg Documented By: Admin: 09/10/23 20:59 Dose: 17.2 mg Documented By: MUSHTAQ Sodium Chloride (Sodium Chloride 0.9% Flush) 10 ml IV PRN PRN PRN Reason: Flush Sodium Chloride (Sodium Chloride 0.9% Flush) 10 ml IV BID [facility] [place] Last Admin: 09/12/23 09:18 Dose: 10 ml Documented By: Admin: 09/11/23 20:35 Dose: 10 ml Documented By: Vitamin D (Cholecalciferol (Vitamin D3) 5,000 Unit Tablet) 5,000 unit PO DAILY [facility] [place] Last Admin: 09/12/23 09:16 Dose: 5,000 unit Documented By: Admin: 09/11/23 08:21 Dose: 5,000 unit Documented By: KARIS Vital Signs Vital signs: Vital Signs - 8 hr 09/10/23 02:00 09/10/23 02:00 09/10/23 02:15 Pulse Rate 79 96 H Respiratory Rate 24 24 Blood Pressure 165/74 H Pulse Oximetry 96 96 09/10/23 02:30 09/10/23 02:30 09/10/23 02:45 Pulse Rate 78 86 Respiratory Rate 23 24 Blood Pressure 172/92 H Pulse Oximetry 94 96 09/10/23 03:00 09/10/23 03:00 09/10/23 03:15 Pulse Rate 94 H 87 Respiratory Rate 22 24 Blood Pressure 166/105 H Pulse Oximetry 95 94 09/10/23 03:30 09/10/23 03:30 09/10/23 03:45 Pulse Rate 81 86 Respiratory Rate 23 23 Blood Pressure 169/103 H Pulse Oximetry 95 94 09/10/23 04:00 09/10/23 04:00 09/10/23 04:15 Pulse Rate 87 82 Respiratory Rate 23 20 Blood Pressure 179/77 H Pulse Oximetry 95 95 09/10/23 04:30 09/10/23 04:30 09/10/23 04:45 Pulse Rate 77 75 Respiratory Rate 22 20 Blood Pressure 163/103 H Pulse Oximetry 96 94 09/10/23 05:00 09/10/23 05:00 09/10/23 05:15 Pulse Rate 92 H 104 H Respiratory Rate 22 21 Blood Pressure 146/104 H Pulse Oximetry 93 93 09/10/23 05:30 09/10/23 05:45 09/10/23 06:00 Pulse Rate 84 83 84 Respiratory Rate 24 22 20 Blood Pressure Pulse Oximetry 97 96 97 09/10/23 06:15 09/10/23 06:30 09/10/23 06:45 Pulse Rate 68 80 71 Respiratory Rate 20 21 18 Blood Pressure Pulse Oximetry 96 96 95 09/10/23 08:45 09/10/23 08:46 09/10/23 09:50 Pulse Rate 100 H 101 H 103 H Respiratory Rate Blood Pressure 198/86 H 198/86 H 160/103 H Pulse Oximetry <Miles Viera MD - Last Filed: 09/21/23 07:18> Orders Ordered: Discontinued Medications Acetaminophen (Acetaminophen 325 Mg Tablet) 650 mg PO Q6H PRN PRN Reason: Fever/Mild Pain (1-3) Apixaban (Apixaban 5 Mg Tablet) 5 mg PO BID [facility] [place] Last Admin: 09/12/23 09:16 Dose: 5 mg Documented By: Admin: 09/11/23 20:18 Dose: 5 mg Documented By: Admin: 09/11/23 08:18 Dose: 5 mg Documented By: Admin: 09/10/23 20:59 Dose: 5 mg Documented By: Admin: 09/10/23 12:53 Dose: 5 mg Documented By: CLL Aspirin (Aspirin 81 Mg Chew Tab) 324 mg PO NOW ONE Stop: 09/08/23 08:33 Last Admin: 09/08/23 08:37 Dose: Not Given Documented By: KF Aspirin (Aspirin 81 Mg Chew Tab) 243 mg PO NOW ONE Stop: 09/08/23 08:37 Last Admin: 09/08/23 08:40 Dose: 243 mg Documented By: KF Aspirin (Aspirin Ec 81 Mg Tablet) 81 mg PO DAILY [facility] [place] Last Admin: 09/12/23 09:17 Dose: 81 mg Documented By: Admin: 09/11/23 08:19 Dose: 81 mg Documented By: KARIS Atorvastatin Calcium (Atorvastatin 20 Mg Tablet) 10 mg PO DAILY [facility] [place] Last Admin: 09/12/23 09:17 Dose: 10 mg Documented By: Admin: 09/11/23 08:18 Dose: 10 mg Documented By: Admin: 09/10/23 09:49 Dose: Not Given Documented By: SPF Bisacodyl (Bisacodyl 5 Mg Tablet) 10 mg PO DAILY PRN PRN Reason: Constipation Last Admin: 09/11/23 15:19 Dose: 10 mg Documented By: KARIS Chlorthalidone (Chlorthalidone 25 Mg Tablet) [facility] Chl[facility]idone (Chlorthalidone 25 Mg Tablet) 12.5 mg PO Q48H [facility] [place] Last Admin: 09/10/23 09:32 Dose: Not Given Documented By: SPF Diltiazem HCl (Diltiazem 5 Mg/Ml Sdv) 10 mg IV NOW ONE Stop: 09/09/23 07:47 Last Admin: 09/09/23 08:01 Dose: 10 mg Documented By: AMV Docusate Sodium (Docusate 100 Mg Capsule) 100 mg PO BID [facility] [place] Last Admin: 09/12/23 09:16 Dose: 100 mg Documented By: YAEphraim Admin: 09/11/23 20:18 Dose: 100 mg Documented By: Admin: 09/11/23 08:18 Dose: 100 mg Documented By: Admin: 09/10/23 20:59 Dose: 100 mg Documented By: SH Glimepiride (Glimepiride 2 Mg Tablet) 1 mg PO BID [facility] [place] Last Admin: 09/10/23 08:47 Dose: 1 mg Documented By: Admin: 09/09/23 21:37 Dose: 1 mg Documented By: SB Glimepiride (Glimepiride 2 Mg Tablet) 1 mg PO BID [facility] [place] Last Admin: 09/12/23 09:16 Dose: 1 mg Documented By: Admin: 09/11/23 20:19 Dose: 1 mg Documented By: Admin: 09/11/23 08:22 Dose: Not Given Documented By: Admin: 09/10/23 20:59 Dose: 1 mg Documented By: SH Heparin Sodium (Porcine) (Heparin 5,000 Unit/Ml Vial) 5,000 unit IV NOW ONE Stop: 09/08/23 12:30 Last Admin: 09/08/23 13:10 Dose: 5,000 unit Documented By: MPO Heparin Sodium (Porcine) (Heparin Flush (Cl/Picc/Mid-Line) 50 Unit/5 Ml Syringe) 50 unit IV PRN PRN PRN Reason: Flush Heparin Sodium (Porcine) (Heparin Flush (Cl/Picc/Mid-Line) 50 Unit/5 Ml Syringe) 50 unit IV BID [facility] [place] Last Admin: 09/12/23 09:18 Dose: 50 unit Documented By: Admin: 09/11/23 20:20 Dose: 50 unit Documented By: SR POTASSIUM CHLORIDE IN WATER (Potassium Cl 10 Meq/100 Ml Kimmie) 10 meq in 100 mls @ 100 mls/hr IV Q1H KEVAN Stop: 09/08/23 14:14 Last Infusion: 09/08/23 15:11 Dose: Infused Documented By: Admin: 09/08/23 13:51 Dose: 100 mls/hr Documented By: Infusion: 09/08/23 13:49 Dose: Infused Documented By: Admin: 09/08/23 12:40 Dose: 100 mls/hr Documented By: Infusion: 09/08/23 12:29 Dose: Infused Documented By: Admin: 09/08/23 11:32 Dose: 100 mls/hr Documented By: Infusion: 09/08/23 11:32 Dose: Infused Documented By: Admin: 09/08/23 10:33 Dose: 100 mls/hr Documented By: MILAGROS Heparin Sodium/Dextrose (Heparin Drip) 25,000 unit in 500 mls @ 23.079 mls/hr IV CONT KEVAN; Protocol Last Titration: 09/10/23 11:20 Dose: 0 units/kg/hr, 0 mls/hr Documented By: SPF Co-signed By: JOYCE Admin: 09/09/23 14:32 Dose: 10.4 units/kg/hr, 20 mls/hr Documented By: AMTameka Co-signed By: BALBIR Titration: 09/09/23 14:32 Dose: Infused Documented By: AMV Co-signed By: BALBIR Titration: 09/09/23 06:11 Dose: 10.4 units/kg/hr, 20 mls/hr Documented By: NGOZI Co-signed By: OW Titration: 09/09/23 05:25 Dose: 0 units/kg/hr, 0 mls/hr Documented By: NGOZI Co-signed By: GC Admin: 09/08/23 13:14 Dose: 10.4 units/kg/hr, 20 mls/hr Documented By: MPO Co-signed By: YOUSUF POTASSIUM CHLORIDE IN WATER (Potassium Cl 10 Meq/100 Ml Kimmie) 10 meq in 100 mls @ 100 mls/hr IV Q1H KEVAN Stop: 09/09/23 12:29 Last Infusion: 09/09/23 15:40 Dose: Infused Documented By: Admin: 09/09/23 14:35 Dose: 100 mls/hr Documented By: Infusion: 09/09/23 14:27 Dose: Infused Documented By: Admin: 09/09/23 13:27 Dose: 100 mls/hr Documented By: Infusion: 09/09/23 13:25 Dose: Infused Documented By: Admin: 09/09/23 12:20 Dose: 100 mls/hr Documented By: Infusion: 09/09/23 12:20 Dose: Infused Documented By: Admin: 09/09/23 11:21 Dose: 100 mls/hr Documented By: Infusion: 09/09/23 11:16 Dose: Infused Documented By: Admin: 09/09/23 10:16 Dose: 100 mls/hr Documented By: Infusion: 09/09/23 10:16 Dose: Infused Documented By: Admin: 09/09/23 09:22 Dose: 100 mls/hr Documented By: AMV Magnesium Sulfate (Magnesium Sulfate) 2 gm in 50 mls @ 25 mls/hr IV NOW ONE Stop: 09/09/23 09:07 Last Infusion: 09/09/23 11:12 Dose: Infused Documented By: AMV Co-signed By: MASSIMO Admin: 09/09/23 09:26 Dose: 25 mls/hr Documented By: AMV Co-signed By: MAIA DILTIAZEM (Diltiazem 125 Mg/125 Ml-D5w) 125 mg in 125 mls @ 5 mls/hr IV TITRATE KEVAN; Protocol Last Titration: 09/09/23 16:19 Dose: 0 mg/hr, 0 mls/hr Documented By: Titration: 09/09/23 12:10 Dose: 5 mg/hr, 5 mls/hr Documented By: Titration: 09/09/23 08:33 Dose: 10 mg/hr, 10 mls/hr Documented By: Admin: 09/09/23 08:01 Dose: 5 mg/hr, 5 mls/hr Documented By: AMTameka Dextrose (D10w) 100 mls @ 1,200 mls/hr IV PRN PRN PRN Reason: Hypoglycemia Magnesium Sulfate (Magnesium Sulfate) 2 gm in 50 mls @ 25 mls/hr IV NOW ONE Stop: 09/10/23 11:11 Last Infusion: 09/10/23 11:23 Dose: 0 mls/hr Documented By: SPF Co-signed By: JOYCE Admin: 09/10/23 09:47 Dose: 25 mls/hr Documented By: SPF Co-signed By: ANTHONY POTASSIUM CHLORIDE IN WATER (Potassium Cl 10 Meq/100 Ml Kimmie) 10 meq in 100 mls @ 100 mls/hr IV Q1H KEVAN Stop: 09/10/23 18:14 Last Admin: 09/10/23 18:47 Dose: 100 mls/hr Documented By: Infusion: 09/10/23 18:45 Dose: Infused Documented By: Admin: 09/10/23 17:45 Dose: 100 mls/hr Documented By: Infusion: 09/10/23 17:37 Dose: Infused Documented By: Admin: 09/10/23 16:37 Dose: 100 mls/hr Documented By: Infusion: 09/10/23 16:30 Dose: Infused Documented By: Admin: 09/10/23 15:30 Dose: 100 mls/hr Documented By: Infusion: 09/10/23 15:22 Dose: Infused Documented By: Admin: 09/10/23 14:22 Dose: 100 mls/hr Documented By: Infusion: 09/10/23 13:55 Dose: Infused Documented By: Admin: 09/10/23 12:55 Dose: 100 mls/hr Documented By: CLL Dextrose (D10w) 100 mls @ 1,200 mls/hr IV PRN PRN PRN Reason: Hypoglycemia POTASSIUM CHLORIDE IN WATER (Potassium Cl 10 Meq/100 Ml Kimmie) 10 meq in 100 mls @ 100 mls/hr IV Q1H KEVAN Stop: 09/11/23 14:59 Last Admin: 09/11/23 13:53 Dose: Not Given Documented By: Infusion: 09/11/23 13:53 Dose: Infused Documented By: Admin: 09/11/23 13:52 Dose: Not Given Documented By: Admin: 09/11/23 12:50 Dose: 100 mls/hr Documented By: Infusion: 09/11/23 12:09 Dose: Infused Documented By: Admin: 09/11/23 11:09 Dose: 100 mls/hr Documented By: Infusion: 09/11/23 11:09 Dose: Infused Documented By: Admin: 09/11/23 10:17 Dose: 100 mls/hr Documented By: Infusion: 09/11/23 10:03 Dose: Infused Documented By: Admin: 09/11/23 09:03 Dose: 100 mls/hr Documented By: Infusion: 09/11/23 09:03 Dose: Infused Documented By: Admin: 09/11/23 08:12 Dose: 100 mls/hr Documented By: KARIS Insulin Human Lispro (Insulin Lispro 100 Unit/Ml 3ml Vial) 0 unit SUBCUT ACHS KEVAN; Protocol Last Admin: 09/09/23 12:20 Dose: Not Given Documented By: AMTameka Admin: 09/09/23 09:03 Dose: 3 unit Documented By: AMTameka Co-signed By: [facility] Insulin Human Lispro (Insulin Lispro 100 Unit/Ml 3ml Vial) 0 unit SUBCUT ACHS KEVAN; Protocol Last Admin: 09/10/23 15:46 Dose: Not Given Documented By: Admin: 09/10/23 08:44 Dose: 4 unit Documented By: SPF Co-signed By: RLRomy Admin: 09/09/23 21:40 Dose: 2 unit Documented By: REBEL Co-signed By: NGOZI Admin: 09/09/23 18:40 Dose: Not Given Documented By: Admin: 09/09/23 12:02 Dose: 7 unit Documented By: AMV Co-signed By: [facility] Insulin Human Lispro (Insulin Lispro 100 Unit/Ml 3ml Vial) 0 unit SUBCUT ACHS KEVAN; Protocol Last Admin: 09/12/23 11:44 Dose: 5 unit Documented By: KARIS Co-signed By: JAMEY Admin: 09/12/23 07:55 Dose: 3 unit Documented By: KARIS Co-signed By: JAMEY Admin: 09/11/23 20:24 Dose: 2 unit Documented By: SR Co-signed By: VH Admin: 09/11/23 16:48 Dose: 1 unit Documented By: KARIS Co-signed By: EJ Admin: 09/11/23 11:19 Dose: 1 unit Documented By: KARIS Co-signed By: BT Admin: 09/11/23 07:55 Dose: Not Given Documented By: Admin: 09/10/23 21:06 Dose: 2 unit Documented By: SH Co-signed By: Admin: 09/10/23 17:26 Dose: 1 unit Documented By: MATT Co-signed By: LIZA Admin: 09/10/23 12:59 Dose: Not Given Documented By: MATT Insulin Human NPH (Insulin Nph 100 Unit/Ml 10ml Vial) 13 unit SUBCUT QACDINNER [facility] [place] Insulin Human NPH (Insulin Nph 100 Unit/Ml 10ml Vial) 18 unit SUBCUT AC [facility] [place] Last Admin: 09/09/23 15:51 Dose: Not Given Documented By: NEVILLE Insulin Human NPH (Insulin Nph 100 Unit/Ml 10ml Vial) 18 unit SUBCUT 0745 [facility] [place] Last Admin: 09/10/23 08:41 Dose: 18 unit Documented By: JUAN Co-signed By: EMILIO Insulin Human NPH (Insulin Nph 100 Unit/Ml 10ml Vial) 13 unit SUBCUT 1800 [facility] [place] Last Admin: 09/09/23 18:36 Dose: 12 unit Documented By: REBEL Co-signed By: BALBIR Insulin Human NPH (Insulin Nph 100 Unit/Ml 10ml Vial) 50 unit SUBCUT 0800 [facility] [place] Insulin Human NPH (Insulin Nph 100 Unit/Ml 10ml Vial) 50 unit SUBCUT 1700 [facility] [place] Insulin Human NPH (Insulin Nph 100 Unit/Ml 10ml Vial) 15 unit SUBCUT 0800 [facility] [place] Last Admin: 09/12/23 07:57 Dose: Not Given Documented By: Admin: 09/11/23 08:23 Dose: Not Given Documented By: KARIS Insulin Human NPH (Insulin Nph 100 Unit/Ml 10ml Vial) 15 unit SUBCUT 1700 [facility] [place] Last Admin: 09/11/23 16:46 Dose: Not Given Documented By: Admin: 09/10/23 17:29 Dose: 15 unit Documented By: MATT Co-signed By: LIZA Lisinopril (Lisinopril 20 Mg Tablet) 20 mg PO DAILY [facility] [place] Last Admin: 09/10/23 08:46 Dose: 20 mg Documented By: Admin: 09/09/23 09:33 Dose: 20 mg Documented By: NEVILLE Lisinopril (Lisinopril 20 Mg Tablet) 40 mg PO DAILY [facility] [place] Last Admin: 09/12/23 09:16 Dose: 40 mg Documented By: Admin: 09/11/23 08:19 Dose: 40 mg Documented By: KARIS Magnesium Hydroxide (Magnesium Hydroxide 30 Ml c) 30 ml PO DAILY PRN PRN Reason: Constipation Last Admin: 09/11/23 15:19 Dose: 30 ml Documented By: KARIS Magnesium Oxide (Magnesium Oxide 400 Mg Tablet) 400 mg PO BID [facility] [place] Last Admin: 09/12/23 09:17 Dose: 400 mg Documented By: Admin: 09/11/23 20:19 Dose: 400 mg Documented By: Admin: 09/11/23 08:17 Dose: 400 mg Documented By: Admin: 09/10/23 20:59 Dose: 400 mg Documented By: Admin: 09/10/23 12:53 Dose: 400 mg Documented By: MATT Metformin HCl (Metformin Hcl 500 Mg Tablet) 1,000 mg PO 0800,1700 [facility] [place] Last Admin: 09/10/23 08:45 Dose: 1,000 mg Documented By: Admin: 09/09/23 18:41 Dose: 1,000 mg Documented By: Admin: 09/09/23 09:32 Dose: 1,000 mg Documented By: NEVILLE Metformin HCl (Metformin Hcl 500 Mg Tablet) 1,000 mg PO BID [facility] [place] Last Admin: 09/12/23 09:17 Dose: 1,000 mg Documented By: Admin: 09/11/23 20:20 Dose: 1,000 mg Documented By: Admin: 09/11/23 08:18 Dose: 1,000 mg Documented By: Admin: 09/10/23 20:59 Dose: 1,000 mg Documented By: MUSHTAQ Metoprolol Succinate (Metoprolol Er 50 Mg Tablet) 100 mg PO BID [facility] [place] Last Admin: 09/12/23 09:16 Dose: 100 mg Documented By: Admin: 09/11/23 20:18 Dose: 100 mg Documented By: Admin: 09/11/23 08:19 Dose: 100 mg Documented By: Admin: 09/10/23 20:58 Dose: 100 mg Documented By: Admin: 09/10/23 08:45 Dose: 100 mg Documented By: Admin: 09/09/23 21:37 Dose: 100 mg Documented By: Admin: 09/09/23 09:32 Dose: 100 mg Documented By: Admin: 09/08/23 22:38 Dose: 100 mg Documented By: NGOZI Metoprolol Tartrate (Metoprolol Tartrate 5 Mg/5 Ml Inj) 5 mg IV NOW ONE Stop: 09/08/23 15:44 Last Admin: 09/08/23 15:52 Dose: 5 mg Documented By: TYRONE Metoprolol Tartrate (Metoprolol Tartrate 5 Mg/5 Ml Inj) 5 mg IV NOW ONE Stop: 09/08/23 22:17 Last Admin: 09/08/23 22:22 Dose: 5 mg Documented By: NGOZI Naloxone HCl (Naloxone 0.4 Mg/Ml Vial) 0.2 mg IV Q2MIN PRN PRN Reason: Opiate Reversal Potassium Chloride (Potassium Chloride 20 Meq Tab) 40 meq PO NOW ONE Stop: 09/08/23 09:06 Last Admin: 09/08/23 09:52 Dose: 40 meq Documented By: YOUSUF Potassium Chloride (Potassium Chloride 20 Meq Tab) 40 meq PO NOW ONE Stop: 09/10/23 01:03 Last Admin: 09/10/23 01:09 Dose: 40 meq Documented By: REBEL Potassium Chloride (Potassium Chloride 20 Meq Tab) 20 meq PO NOW ONE Stop: 09/10/23 09:14 Last Admin: 09/10/23 09:47 Dose: 20 meq Documented By: JUAN Potassium Chloride (Potassium Chloride 20 Meq Tab) 40 meq PO BIDWM [facility] [place] Last Admin: 09/12/23 09:17 Dose: 40 meq Documented By: Admin: 09/11/23 16:48 Dose: 40 meq Documented By: Admin: 09/11/23 08:12 Dose: 40 meq Documented By: KARIS Sennosides (Sennosides 8.6 Mg Tablet) 17.2 mg PO BEDTIME [facility] [place] Last Admin: 09/11/23 20:18 Dose: 17.2 mg Documented By: Admin: 09/10/23 20:59 Dose: 17.2 mg Documented By: SH Sodium Chloride (Sodium Chloride 0.9% Flush) 10 ml IV PRN PRN PRN Reason: Flush Sodium Chloride (Sodium Chloride 0.9% Flush) 10 ml IV BID [facility] [place] Last Admin: 09/12/23 09:18 Dose: 10 ml Documented By: Admin: 09/11/23 20:35 Dose: 10 ml Documented By: Vitamin D (Cholecalciferol (Vitamin D3) 5,000 Unit Tablet) 5,000 unit PO DAILY [facility] [place] Last Admin: 09/12/23 09:16 Dose: 5,000 unit Documented By: Admin: 09/11/23 08:21 Dose: 5,000 unit Documented By: KARIS Vital Signs Vital signs: Vital Signs - 8 hr 09/10/23 02:00 09/10/23 02:00 09/10/23 02:15 Pulse Rate 79 96 H Respiratory Rate 24 24 Blood Pressure 165/74 H Pulse Oximetry 96 96 09/10/23 02:30 09/10/23 02:30 09/10/23 02:45 Pulse Rate 78 86 Respiratory Rate 23 24 Blood Pressure 172/92 H Pulse Oximetry 94 96 09/10/23 03:00 09/10/23 03:00 09/10/23 03:15 Pulse Rate 94 H 87 Respiratory Rate 22 24 Blood Pressure 166/105 H Pulse Oximetry 95 94 09/10/23 03:30 09/10/23 03:30 09/10/23 03:45 Pulse Rate 81 86 Respiratory Rate 23 23 Blood Pressure 169/103 H Pulse Oximetry 95 94 09/10/23 04:00 09/10/23 04:00 09/10/23 04:15 Pulse Rate 87 82 Respiratory Rate 23 20 Blood Pressure 179/77 H Pulse Oximetry 95 95 09/10/23 04:30 09/10/23 04:30 09/10/23 04:45 Pulse Rate 77 75 Respiratory Rate 22 20 Blood Pressure 163/103 H Pulse Oximetry 96 94 09/10/23 05:00 09/10/23 05:00 09/10/23 05:15 Pulse Rate 92 H 104 H Respiratory Rate 22 21 Blood Pressure 146/104 H Pulse Oximetry 93 93 09/10/23 05:30 09/10/23 05:45 09/10/23 06:00 Pulse Rate 84 83 84 Respiratory Rate 24 22 20 Blood Pressure Pulse Oximetry 97 96 97 09/10/23 06:15 09/10/23 06:30 09/10/23 06:45 Pulse Rate 68 80 71 Respiratory Rate 20 21 18 Blood Pressure Pulse Oximetry 96 96 95 09/10/23 08:45 09/10/23 08:46 09/10/23 09:50 Pulse Rate 100 H 101 H 103 H Respiratory Rate Blood Pressure 198/86 H 198/86 H 160/103 H Pulse Oximetry MDM - Arrhythmia/Palpitations <Estela Og DO - Last Filed: 09/09/23 11:47> Lab Data 09/10/23 05:00 09/12/23 05:00 Labs: Lab Results 09/08/23 09/08/23 09/08/23 Range/Units 08:30 10:30 13:15 WBC 8.2 (4.5-11.0) X10^3/uL RBC 4.72 (4.5-5.9) X10^6/uL Hgb 14.2 (13.5-17.5) g/dL Hct 40.7 L (41-53) % MCV 86.2 (80-100) fL MCH 30.1 (26-34) PG MCHC 34.9 (30-36) % RDW 13.9 (11.6-14.8) % Plt Count 207 (150-400) X10^3/uL Neut % (Auto) 69.1 (50-75) % Lymph % (Auto) 19.7 L (25-40) % [place] % (Auto) 8.3 (3-14) % Eos % (Auto) 2.3 (2-4) % Baso % (Auto) 0.6 (0-2) % Neut # (Auto) 5700 (1136-8200) /uL Lymph # (Auto) 1600 (0858-9753) /uL [place] # (Auto) 700 (0-900) /uL Eos # (Auto) 200 (0-450) /uL Baso # (Auto) 0 (0-100) /uL PT 13.4 H (10.1-12.7) SECONDS INR 1.2 (0.9-1.3) APTT 27 (26-36) SECONDS Sodium 140 (137-145) mmol/L Potassium 2.6 L* (3.4-5.1) mmol/L Chloride 97 L (98-107) mmol/L Carbon Dioxide 32 (22-32) mmol/L BUN 14 (9-20) mg/dL Creatinine 0.74 (0.66-1.25) mg/dL Estimated GFR > 60 (>60) mL/min BUN/Creatinine Ratio 18.9 (6-22) Glucose 149 H (80-110) mg/dL Calcium 9.6 (8.4-10.2) mg/dL Magnesium 1.6 (1.6-2.3) mg/dL Total Bilirubin 1.6 H (0.2-1.3) mg/dL AST 27 (17-59) IU/L ALT 26 (<50) IU/L Alkaline Phosphatase 54 (38-126) U/L Total Creatine Kinase 62 (55-170) U/L Troponin I 0.217 H* 0.207 H* 0.182 H* (0.01-0.034) ng/mL NT-Pro-B Natriuret Pep 2410 H (<450) pg/mL Total Protein 6.5 (6.3-8.2) g/dL Albumin 3.9 (3.5-5.0) g/dL Globulin 2.6 (1.7-4.1) g/dL Albumin/Globulin Ratio 1.5 (1.0-2.8) Lipase 28 (23-300) U/L Urine RBC (0-5/HPF) Urine WBC (0-5/HPF) Ur Squamous Epith Cells (0-5/HPF) Urine Bacteria (None) Ur Culture Indicated? 09/08/23 09/09/23 09/09/23 Range/Units 19:25 01:25 02:47 WBC (4.5-11.0) X10^3/uL RBC (4.5-5.9) X10^6/uL Hgb (13.5-17.5) g/dL Hct (41-53) % MCV (80-100) fL MCH (26-34) PG MCHC (30-36) % RDW (11.6-14.8) % Plt Count (150-400) X10^3/uL Neut % (Auto) (50-75) % Lymph % (Auto) (25-40) % [place] % (Auto) (3-14) % Eos % (Auto) (2-4) % Baso % (Auto) (0-2) % Neut # (Auto) (9118-3486) /uL Lymph # (Auto) (9902-1005) /uL [place] # (Auto) (0-900) /uL Eos # (Auto) (0-450) /uL Baso # (Auto) (0-100) /uL PT (10.1-12.7) SECONDS INR (0.9-1.3) APTT 70 H D 58 H D (26-36) SECONDS Sodium (137-145) mmol/L Potassium (3.4-5.1) mmol/L Chloride (98-107) mmol/L Carbon Dioxide (22-32) mmol/L BUN (9-20) mg/dL Creatinine (0.66-1.25) mg/dL Estimated GFR (>60) mL/min BUN/Creatinine Ratio (6-22) Glucose (80-110) mg/dL Calcium (8.4-10.2) mg/dL Magnesium (1.6-2.3) mg/dL Total Bilirubin (0.2-1.3) mg/dL AST (17-59) IU/L ALT (<50) IU/L Alkaline Phosphatase (38-126) U/L Total Creatine Kinase (55-170) U/L Troponin I (0.01-0.034) ng/mL NT-Pro-B Natriuret Pep (<450) pg/mL Total Protein (6.3-8.2) g/dL Albumin (3.5-5.0) g/dL Globulin (1.7-4.1) g/dL Albumin/Globulin Ratio (1.0-2.8) Lipase (23-300) U/L Urine RBC 0-1/hpf (0-5/HPF) Urine WBC None seen (0-5/HPF) Ur Squamous Epith Cells None seen (0-5/HPF) Urine Bacteria None seen (None) Ur Culture Indicated? Cult not indicated 09/09/23 09/09/23 09/09/23 Range/Units 05:38 06:24 12:22 WBC 6.7 (4.5-11.0) X10^3/uL RBC 4.63 (4.5-5.9) X10^6/uL Hgb 14.0 (13.5-17.5) g/dL Hct 39.8 L (41-53) % MCV 85.9 (80-100) fL MCH 30.2 (26-34) PG MCHC 35.2 (30-36) % RDW 14.1 (11.6-14.8) % Plt Count 190 (150-400) X10^3/uL Neut % (Auto) 66.1 (50-75) % Lymph % (Auto) 21.9 L (25-40) % [place] % (Auto) 9.0 (3-14) % Eos % (Auto) 2.2 (2-4) % Baso % (Auto) 0.8 (0-2) % Neut # (Auto) 4400 (7128-6167) /uL Lymph # (Auto) 1500 (7846-2653) /uL [place] # (Auto) 600 (0-900) /uL Eos # (Auto) 100 (0-450) /uL Baso # (Auto) 100 (0-100) /uL PT (10.1-12.7) SECONDS INR (0.9-1.3) APTT 55 H 59 H (26-36) SECONDS Sodium 137 (137-145) mmol/L Potassium 2.7 L* (3.4-5.1) mmol/L Chloride 97 L (98-107) mmol/L Carbon Dioxide 31 (22-32) mmol/L BUN 10 (9-20) mg/dL Creatinine 0.58 L (0.66-1.25) mg/dL Estimated GFR > 60 (>60) mL/min BUN/Creatinine Ratio 17.2 (6-22) Glucose 197 H (80-110) mg/dL Calcium 9.0 (8.4-10.2) mg/dL Magnesium 1.5 L (1.6-2.3) mg/dL Total Bilirubin 2.0 H (0.2-1.3) mg/dL AST 39 (17-59) IU/L ALT 25 (<50) IU/L Alkaline Phosphatase 54 (38-126) U/L Total Creatine Kinase (55-170) U/L Troponin I (0.01-0.034) ng/mL NT-Pro-B Natriuret Pep (<450) pg/mL Total Protein 6.0 L (6.3-8.2) g/dL Albumin 3.5 (3.5-5.0) g/dL Globulin 2.5 (1.7-4.1) g/dL Albumin/Globulin Ratio 1.4 (1.0-2.8) Lipase (23-300) U/L Urine RBC (0-5/HPF) Urine WBC (0-5/HPF) Ur Squamous Epith Cells (0-5/HPF) Urine Bacteria (None) Ur Culture Indicated? 11/08/23 11/09/23 Range/Units 18:34 05:00 WBC 8.5 7.9 (4.5-11.0) X10^3/uL RBC 4.28 L 4.37 L (4.5-5.9) X10^6/uL Hgb 12.8 L 13.4 L (13.5-17.5) g/dL Hct 36.7 L 37.6 L (41-53) % MCV 85.8 86.0 (80-100) fL MCH 29.8 30.6 (26-34) PG MCHC 34.8 35.6 (30-36) % RDW 14.1 14.0 (11.6-14.8) % Plt Count 183 186 (150-400) X10^3/uL Neut % (Auto) 71.4 73.4 (50-75) % Lymph % (Auto) 16.6 L 16.2 L (25-40) % [place] % (Auto) 9.7 8.4 (3-14) % Eos % (Auto) 1.7 L 1.6 L (2-4) % Baso % (Auto) 0.6 0.4 (0-2) % Neut # (Auto) 6100 5800 (8106-9312) /uL Lymph # (Auto) 1400 1300 (5052-3839) /uL [place] # (Auto) 800 700 (0-900) /uL Eos # (Auto) 100 100 (0-450) /uL Baso # (Auto) 100 0 (0-100) /uL PT (10.1-12.7) SECONDS INR (0.9-1.3) APTT 60 H 58 H (26-36) SECONDS Sodium 133 L 138 (137-145) mmol/L Potassium 2.9 L 2.9 L (3.4-5.1) mmol/L Chloride 94 L 95 L (98-107) mmol/L Carbon Dioxide 29 30 (22-32) mmol/L BUN 15 11 (9-20) mg/dL Creatinine 0.64 L 0.56 L (0.66-1.25) mg/dL Estimated GFR > 60 > 60 (>60) mL/min BUN/Creatinine Ratio 23.4 H 19.6 (6-22) Glucose 254 H 209 H (80-110) mg/dL Calcium 8.9 8.2 L (8.4-10.2) mg/dL Magnesium (1.6-2.3) mg/dL Total Bilirubin 1.7 H (0.2-1.3) mg/dL AST 41 (17-59) IU/L ALT 32 (<50) IU/L Alkaline Phosphatase 56 (38-126) U/L Total Creatine Kinase 60 (55-170) U/L Troponin I 0.140 H* (0.01-0.034) ng/mL NT-Pro-B Natriuret Pep (<450) pg/mL Total Protein 5.6 L (6.3-8.2) g/dL Albumin 3.3 L (3.5-5.0) g/dL Globulin 2.3 (1.7-4.1) g/dL Albumin/Globulin Ratio 1.4 (1.0-2.8) Lipase (23-300) U/L Urine RBC (0-5/HPF) Urine WBC (0-5/HPF) Ur Squamous Epith Cells (0-5/HPF) Urine Bacteria (None) Ur Culture Indicated? Point of Care Testing Stool Occult Blood Negative Glucose POC 244 Urine Dip Bedside Urine Glucose Negative Bedside Urine Bilirubin - Negative Bedside Urine Ketone + 15 Urine Specific [place] 1.015 Bedside Urine Occult Blood - Negative Bedside Urine pH 6.0 Bedside Urine Protein - Negative Bedside Urine Urobilinogen - Negative Bedside Urine Nitrite - Negative Bedside Urine Leukocytes +/- 15 Esterase Imaging Data Chest x-ray: Radiologist's Impresson: [address] [address] XRay Report Signed Patient: Anurag Ferraro MR#: [id number] : 1940 Acct:[id number] Age/Sex: 83 / M Date of Service: 09/08/23 Loc: ED Accession Number: [id number] Procedure: XR chest 1V Ordering Provider: Estela Og D.O. PROCEDURE: XR CHEST 1V INDICATIONS: chest pain TECHNIQUE: One view of the chest was acquired. COMPARISON: None. FINDINGS: Surgical changes and devices: Sternotomy wires, some which are broken. Postsurgical changes in the mediastinum Lungs and pleura: No dense consolidation or pleural effusion. Mediastinum: Mild cardiomegaly Bones and chest wall: Degenerative changes. IMPRESSION: No acute radiographic abnormality on this portable single-view chest. Dictated by: Tom Hurt M.D. on 09/08/2023 at 9:07 Approved by: Tom Hurt M.D. on 09/08/2023 at 9:08 ECG Data Attestation: I personally reviewed and interpreted this ECG as follows: Interpretation: Sinus rhythm rate of 100 ME 168 QRS of 90 QTC of 541. No acute ST elevation, patient had some mild depression in V4 5 6 on prior EKG on 02/17/2023 and T-waves upright today but no ST elevation appreciated throughout leads. Otherwise ST segments all appear similar. MDM Narrative Medical decision making narrative: 83-year-old male who has had intermittent tachycardia he does appear to be in atrial fibrillation although rate controlled in the department, he denies chest pain or shortness of breath but has had increasing swelling in his extremities over the past couple weeks. Patient's lab workup shows appropriate CBC, INR, use hypokalemic at 2.6 likely contributing to his arrhythmia. Bilirubin is 1.6 he does not have any other GI symptoms LFTs are otherwise negative. Troponin is positive at 0.27, he is asymptomatic currently. Chest x-ray showed no acute change. BNP is 2410, no priors for comparison. Patient did have an echo in 03/15/19 patient had EF of 60% at that time no pericardial fusion, patient had mildly dilated right ventricle, left atrium was mildly dilated right atrial size was normal no evidence of atrial septal defects there was some lipomatous hypertrophy of the intra-atrial septum noted. [id number] mitral annular calcification and mild mitral regurg aortic valve does moderately calcified leaflet mobility was moderately reduced aortic valve area was 1.8 cm2 and there was mild left asymmetric ventricular hypertrophy. Spoke with cardiology Dr. Gupta: Recommends transfer, patient was rate controlled during his stay here but troponin is trending down words suspect CHF maybe some AFib RVR but is not persistently in it. Does recommend echo, heparin, aspirin. Patient is updated. On current plan and findings. Seeking placement at facility for Cardiology. Patient signed out to Dr. Cohen while awaiting possible transfer. Dr. Cohen. Patient signed out to me by Dr. Og I have seen evaluated patient myself overall appears well. Patient has history of coronary artery disease with CABG questionable history of atrial fibrillation. 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 He is in AFib now. He would an episode where his heart rate went into the 200s while sitting at the side of the bed. Awake alert oriented without any obvious distress. He was given 5 mg of IV Lopressor. Appears that while he was in the ED all day he did not get p.o. metoprolol which he normally takes 50 mg. He was given the IV part slowed his heart rate and then he was given 100 mg of metoprolol. I did discuss case with Dr. Jackson who did not disagree with transferring patient. It is difficult to transfer the patient due to critical bed shortage. Multiple wait list. Troponin trending downward. Thought is might be cardioverted after a CHA. Signed out to Dr. Marino. <Jamilah Cohen DO - Last Filed: 09/12/23 07:05> Lab Data Labs: Lab Results 09/08/23 09/08/23 09/08/23 Range/Units 08:30 10:30 13:15 WBC 8.2 (4.5-11.0) X10^3/uL RBC 4.72 (4.5-5.9) X10^6/uL Hgb 14.2 (13.5-17.5) g/dL Hct 40.7 L (41-53) % MCV 86.2 (80-100) fL MCH 30.1 (26-34) PG MCHC 34.9 (30-36) % RDW 13.9 (11.6-14.8) % Plt Count 207 (150-400) X10^3/uL Neut % (Auto) 69.1 (50-75) % Lymph % (Auto) 19.7 L (25-40) % [place] % (Auto) 8.3 (3-14) % Eos % (Auto) 2.3 (2-4) % Baso % (Auto) 0.6 (0-2) % Neut # (Auto) 5700 (7018-2629) /uL Lymph # (Auto) 1600 (5956-0755) /uL [place] # (Auto) 700 (0-900) /uL Eos # (Auto) 200 (0-450) /uL Baso # (Auto) 0 (0-100) /uL PT 13.4 H (10.1-12.7) SECONDS INR 1.2 (0.9-1.3) APTT 27 (26-36) SECONDS Sodium 140 (137-145) mmol/L Potassium 2.6 L* (3.4-5.1) mmol/L Chloride 97 L (98-107) mmol/L Carbon Dioxide 32 (22-32) mmol/L BUN 14 (9-20) mg/dL Creatinine 0.74 (0.66-1.25) mg/dL Estimated GFR > 60 (>60) mL/min BUN/Creatinine Ratio 18.9 (6-22) Glucose 149 H (80-110) mg/dL Calcium 9.6 (8.4-10.2) mg/dL Magnesium 1.6 (1.6-2.3) mg/dL Total Bilirubin 1.6 H (0.2-1.3) mg/dL AST 27 (17-59) IU/L ALT 26 (<50) IU/L Alkaline Phosphatase 54 (38-126) U/L Total Creatine Kinase 62 (55-170) U/L Troponin I 0.217 H* 0.207 H* 0.182 H* (0.01-0.034) ng/mL NT-Pro-B Natriuret Pep 2410 H (<450) pg/mL Total Protein 6.5 (6.3-8.2) g/dL Albumin 3.9 (3.5-5.0) g/dL Globulin 2.6 (1.7-4.1) g/dL Albumin/Globulin Ratio 1.5 (1.0-2.8) Lipase 28 (23-300) U/L Urine RBC (0-5/HPF) Urine WBC (0-5/HPF) Ur Squamous Epith Cells (0-5/HPF) Urine Bacteria (None) Ur Culture Indicated? 09/08/23 09/09/23 09/09/23 Range/Units 19:25 01:25 02:47 WBC (4.5-11.0) X10^3/uL RBC (4.5-5.9) X10^6/uL Hgb (13.5-17.5) g/dL Hct (41-53) % MCV (80-100) fL MCH (26-34) PG MCHC (30-36) % RDW (11.6-14.8) % Plt Count (150-400) X10^3/uL Neut % (Auto) (50-75) % Lymph % (Auto) (25-40) % [place] % (Auto) (3-14) % Eos % (Auto) (2-4) % Baso % (Auto) (0-2) % Neut # (Auto) (8229-0722) /uL Lymph # (Auto) (9909-2772) /uL [place] # (Auto) (0-900) /uL Eos # (Auto) (0-450) /uL Baso # (Auto) (0-100) /uL PT (10.1-12.7) SECONDS INR (0.9-1.3) APTT 70 H D 58 H D (26-36) SECONDS Sodium (137-145) mmol/L Potassium (3.4-5.1) mmol/L Chloride (98-107) mmol/L Carbon Dioxide (22-32) mmol/L BUN (9-20) mg/dL Creatinine (0.66-1.25) mg/dL Estimated GFR (>60) mL/min BUN/Creatinine Ratio (6-22) Glucose (80-110) mg/dL Calcium (8.4-10.2) mg/dL Magnesium (1.6-2.3) mg/dL Total Bilirubin (0.2-1.3) mg/dL AST (17-59) IU/L ALT (<50) IU/L Alkaline Phosphatase (38-126) U/L Total Creatine Kinase (55-170) U/L Troponin I (0.01-0.034) ng/mL NT-Pro-B Natriuret Pep (<450) pg/mL Total Protein (6.3-8.2) g/dL Albumin (3.5-5.0) g/dL Globulin (1.7-4.1) g/dL Albumin/Globulin Ratio (1.0-2.8) Lipase (23-300) U/L Urine RBC 0-1/hpf (0-5/HPF) Urine WBC None seen (0-5/HPF) Ur Squamous Epith Cells None seen (0-5/HPF) Urine Bacteria None seen (None) Ur Culture Indicated? Cult not indicated 09/09/23 09/09/23 09/09/23 Range/Units 05:38 06:24 12:22 WBC 6.7 (4.5-11.0) X10^3/uL RBC 4.63 (4.5-5.9) X10^6/uL Hgb 14.0 (13.5-17.5) g/dL Hct 39.8 L (41-53) % MCV 85.9 (80-100) fL MCH 30.2 (26-34) PG MCHC 35.2 (30-36) % RDW 14.1 (11.6-14.8) % Plt Count 190 (150-400) X10^3/uL Neut % (Auto) 66.1 (50-75) % Lymph % (Auto) 21.9 L (25-40) % [place] % (Auto) 9.0 (3-14) % Eos % (Auto) 2.2 (2-4) % Baso % (Auto) 0.8 (0-2) % Neut # (Auto) 4400 (6052-4094) /uL Lymph # (Auto) 1500 (9161-8292) /uL [place] # (Auto) 600 (0-900) /uL Eos # (Auto) 100 (0-450) /uL Baso # (Auto) 100 (0-100) /uL PT (10.1-12.7) SECONDS INR (0.9-1.3) APTT 55 H 59 H (26-36) SECONDS Sodium 137 (137-145) mmol/L Potassium 2.7 L* (3.4-5.1) mmol/L Chloride 97 L (98-107) mmol/L Carbon Dioxide 31 (22-32) mmol/L BUN 10 (9-20) mg/dL Creatinine 0.58 L (0.66-1.25) mg/dL Estimated GFR > 60 (>60) mL/min BUN/Creatinine Ratio 17.2 (6-22) Glucose 197 H (80-110) mg/dL Calcium 9.0 (8.4-10.2) mg/dL Magnesium 1.5 L (1.6-2.3) mg/dL Total Bilirubin 2.0 H (0.2-1.3) mg/dL AST 39 (17-59) IU/L ALT 25 (<50) IU/L Alkaline Phosphatase 54 (38-126) U/L Total Creatine Kinase (55-170) U/L Troponin I (0.01-0.034) ng/mL NT-Pro-B Natriuret Pep (<450) pg/mL Total Protein 6.0 L (6.3-8.2) g/dL Albumin 3.5 (3.5-5.0) g/dL Globulin 2.5 (1.7-4.1) g/dL Albumin/Globulin Ratio 1.4 (1.0-2.8) Lipase (23-300) U/L Urine RBC (0-5/HPF) Urine WBC (0-5/HPF) Ur Squamous Epith Cells (0-5/HPF) Urine Bacteria (None) Ur Culture Indicated? 09/09/23 09/10/23 Range/Units 18:34 05:00 WBC 8.5 7.9 (4.5-11.0) X10^3/uL RBC 4.28 L 4.37 L (4.5-5.9) X10^6/uL Hgb 12.8 L 13.4 L (13.5-17.5) g/dL Hct 36.7 L 37.6 L (41-53) % MCV 85.8 86.0 (80-100) fL MCH 29.8 30.6 (26-34) PG MCHC 34.8 35.6 (30-36) % RDW 14.1 14.0 (11.6-14.8) % Plt Count 183 186 (150-400) X10^3/uL Neut % (Auto) 71.4 73.4 (50-75) % Lymph % (Auto) 16.6 L 16.2 L (25-40) % [place] % (Auto) 9.7 8.4 (3-14) % Eos % (Auto) 1.7 L 1.6 L (2-4) % Baso % (Auto) 0.6 0.4 (0-2) % Neut # (Auto) 6100 5800 (1756-3400) /uL Lymph # (Auto) 1400 1300 (9439-0166) /uL [place] # (Auto) 800 700 (0-900) /uL Eos # (Auto) 100 100 (0-450) /uL Baso # (Auto) 100 0 (0-100) /uL PT (10.1-12.7) SECONDS INR (0.9-1.3) APTT 60 H 58 H (26-36) SECONDS Sodium 133 L 138 (137-145) mmol/L Potassium 2.9 L 2.9 L (3.4-5.1) mmol/L Chloride 94 L 95 L (98-107) mmol/L Carbon Dioxide 29 30 (22-32) mmol/L BUN 15 11 (9-20) mg/dL Creatinine 0.64 L 0.56 L (0.66-1.25) mg/dL Estimated GFR > 60 > 60 (>60) mL/min BUN/Creatinine Ratio 23.4 H 19.6 (6-22) Glucose 254 H 209 H (80-110) mg/dL Calcium 8.9 8.2 L (8.4-10.2) mg/dL Magnesium (1.6-2.3) mg/dL Total Bilirubin 1.7 H (0.2-1.3) mg/dL AST 41 (17-59) IU/L ALT 32 (<50) IU/L Alkaline Phosphatase 56 (38-126) U/L Total Creatine Kinase 60 (55-170) U/L Troponin I 0.140 H* (0.01-0.034) ng/mL NT-Pro-B Natriuret Pep (<450) pg/mL Total Protein 5.6 L (6.3-8.2) g/dL Albumin 3.3 L (3.5-5.0) g/dL Globulin 2.3 (1.7-4.1) g/dL Albumin/Globulin Ratio 1.4 (1.0-2.8) Lipase (23-300) U/L Urine RBC (0-5/HPF) Urine WBC (0-5/HPF) Ur Squamous Epith Cells (0-5/HPF) Urine Bacteria (None) Ur Culture Indicated? Point of Care Testing Stool Occult Blood Negative Glucose POC 244 Urine Dip Bedside Urine Glucose Negative Bedside Urine Bilirubin - Negative Bedside Urine Ketone + 15 Urine Specific [place] 1.015 Bedside Urine Occult Blood - Negative Bedside Urine pH 6.0 Bedside Urine Protein - Negative Bedside Urine Urobilinogen - Negative Bedside Urine Nitrite - Negative Bedside Urine Leukocytes +/- 15 Esterase MDM Narrative Medical decision making narrative: 83-year-old male who has had intermittent tachycardia he does appear to be in atrial fibrillation although rate controlled in the department, he denies chest pain or shortness of breath but has had increasing swelling in his extremities over the past couple weeks. Patient's lab workup shows appropriate CBC, INR, use hypokalemic at 2.6 likely contributing to his arrhythmia. Bilirubin is 1.6 he does not have any other GI symptoms LFTs are otherwise negative. Troponin is positive at 0.27, he is asymptomatic currently. Chest x-ray showed no acute change. BNP is 2410, no priors for comparison. Patient did have an echo in 03/15/19 patient had EF of 60% at that time no pericardial fusion, patient had mildly dilated right ventricle, left atrium was mildly dilated right atrial size was normal no evidence of atrial septal defects there was some lipomatous hypertrophy of the intra-atrial septum noted. [id number] mitral annular calcification and mild mitral regurg aortic valve does moderately calcified leaflet mobility was moderately reduced aortic valve area was 1.8 cm2 and there was mild left asymmetric ventricular hypertrophy. Spoke with cardiology Dr. Gupta: Recommends transfer, patient was rate controlled during his stay here but troponin is trending down words suspect CHF maybe some AFib RVR but is not persistently in it. Does recommend echo, heparin, aspirin. Patient is updated. On current plan and findings. Seeking placement at facility for Cardiology. Patient signed out to Dr. Cohen while awaiting possible transfer. Dr. Cohen. Patient signed out to me by Dr. Og I have seen evaluated patient myself overall appears well. Patient has history of coronary artery disease with CABG questionable history of atrial fibrillation. 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 He is in AFib now. He would an episode where his heart rate went into the 200s while sitting at the side of the bed. Awake alert oriented without any obvious distress. He was given 5 mg of IV Lopressor. Appears that while he was in the ED all day he did not get p.o. metoprolol which he normally takes 50 mg. He was given the IV part slowed his heart rate and then he was given 100 mg of metoprolol. I did discuss case with Dr. Jackson who did not disagree with transferring patient. It is difficult to transfer the patient due to critical bed shortage. Multiple wait list. Troponin trending downward. Thought is might be cardioverted after a CHA. Signed out to Dr. Marino. Dr Marino: Received turned over. Reviewed patient's history and physical. He did have a episode where he became tachycardic with a heart rate in the 180s to 190s. He was placed on a diltiazem drip. This did rate control him. He is now off the drip. Patient has been stable. There has been no movement on any transfer today. Care turned back over to Dr. Cohen to re-evaluate and disposition. 09/09/[address] Cohen received sign-out from Dr. Rutherford patient is tachycardic earlier today received diltiazem he has been on metoprolol 100 mg twice a day. Awaiting for transfer. Previously to dock operations supervisor recommended transfer. However patient is symptomatic with AFib heart rate is mostly controlled he is anticoagulated on heparin. He has been hypokalemic but potassium is improving. 01:15 call to patient nursing staff concern for change in mental status. Patient woke up stating that he felt like he might . Heart rate was mildly fast and 1 teens 120s. He is is awake alert oriented able to follow commands no facial droop. [place] like there was buzzing in his chest. Glucose was checked it was 177. He is afebrile. This time he is not really having any focal deficits I do not think head CT is needed. He is actually mentating and appropriate he knows where he is he is following commands. Patient signed out to Dr. Viera <Dru Marino, DO - Last Filed: 09/09/23 18:06> Lab Data Labs: Lab Results 09/08/23 09/08/23 09/08/23 Range/Units 08:30 10:30 13:15 WBC 8.2 (4.5-11.0) X10^3/uL RBC 4.72 (4.5-5.9) X10^6/uL Hgb 14.2 (13.5-17.5) g/dL Hct 40.7 L (41-53) % MCV 86.2 (80-100) fL MCH 30.1 (26-34) PG MCHC 34.9 (30-36) % RDW 13.9 (11.6-14.8) % Plt Count 207 (150-400) X10^3/uL Neut % (Auto) 69.1 (50-75) % Lymph % (Auto) 19.7 L (25-40) % [place] % (Auto) 8.3 (3-14) % Eos % (Auto) 2.3 (2-4) % Baso % (Auto) 0.6 (0-2) % Neut # (Auto) 5700 (9602-7745) /uL Lymph # (Auto) 1600 (2740-6753) /uL [place] # (Auto) 700 (0-900) /uL Eos # (Auto) 200 (0-450) /uL Baso # (Auto) 0 (0-100) /uL PT 13.4 H (10.1-12.7) SECONDS INR 1.2 (0.9-1.3) APTT 27 (26-36) SECONDS Sodium 140 (137-145) mmol/L Potassium 2.6 L* (3.4-5.1) mmol/L Chloride 97 L (98-107) mmol/L Carbon Dioxide 32 (22-32) mmol/L BUN 14 (9-20) mg/dL Creatinine 0.74 (0.66-1.25) mg/dL Estimated GFR > 60 (>60) mL/min BUN/Creatinine Ratio 18.9 (6-22) Glucose 149 H (80-110) mg/dL Calcium 9.6 (8.4-10.2) mg/dL Magnesium 1.6 (1.6-2.3) mg/dL Total Bilirubin 1.6 H (0.2-1.3) mg/dL AST 27 (17-59) IU/L ALT 26 (<50) IU/L Alkaline Phosphatase 54 (38-126) U/L Total Creatine Kinase 62 (55-170) U/L Troponin I 0.217 H* 0.207 H* 0.182 H* (0.01-0.034) ng/mL NT-Pro-B Natriuret Pep 2410 H (<450) pg/mL Total Protein 6.5 (6.3-8.2) g/dL Albumin 3.9 (3.5-5.0) g/dL Globulin 2.6 (1.7-4.1) g/dL Albumin/Globulin Ratio 1.5 (1.0-2.8) Lipase 28 (23-300) U/L Urine RBC (0-5/HPF) Urine WBC (0-5/HPF) Ur Squamous Epith Cells (0-5/HPF) Urine Bacteria (None) Ur Culture Indicated? 09/08/23 09/09/23 09/09/23 Range/Units 19:25 01:25 02:47 WBC (4.5-11.0) X10^3/uL RBC (4.5-5.9) X10^6/uL Hgb (13.5-17.5) g/dL Hct (41-53) % MCV (80-100) fL MCH (26-34) PG MCHC (30-36) % RDW (11.6-14.8) % Plt Count (150-400) X10^3/uL Neut % (Auto) (50-75) % Lymph % (Auto) (25-40) % [place] % (Auto) (3-14) % Eos % (Auto) (2-4) % Baso % (Auto) (0-2) % Neut # (Auto) (0386-5245) /uL Lymph # (Auto) (1987-8535) /uL [place] # (Auto) (0-900) /uL Eos # (Auto) (0-450) /uL Baso # (Auto) (0-100) /uL PT (10.1-12.7) SECONDS INR (0.9-1.3) APTT 70 H D 58 H D (26-36) SECONDS Sodium (137-145) mmol/L Potassium (3.4-5.1) mmol/L Chloride (98-107) mmol/L Carbon Dioxide (22-32) mmol/L BUN (9-20) mg/dL Creatinine (0.66-1.25) mg/dL Estimated GFR (>60) mL/min BUN/Creatinine Ratio (6-22) Glucose (80-110) mg/dL Calcium (8.4-10.2) mg/dL Magnesium (1.6-2.3) mg/dL Total Bilirubin (0.2-1.3) mg/dL AST (17-59) IU/L ALT (<50) IU/L Alkaline Phosphatase (38-126) U/L Total Creatine Kinase (55-170) U/L Troponin I (0.01-0.034) ng/mL NT-Pro-B Natriuret Pep (<450) pg/mL Total Protein (6.3-8.2) g/dL Albumin (3.5-5.0) g/dL Globulin (1.7-4.1) g/dL Albumin/Globulin Ratio (1.0-2.8) Lipase (23-300) U/L Urine RBC 0-1/hpf (0-5/HPF) Urine WBC None seen (0-5/HPF) Ur Squamous Epith Cells None seen (0-5/HPF) Urine Bacteria None seen (None) Ur Culture Indicated? Cult not indicated 09/09/23 09/09/23 09/09/23 Range/Units 05:38 06:24 12:22 WBC 6.7 (4.5-11.0) X10^3/uL RBC 4.63 (4.5-5.9) X10^6/uL Hgb 14.0 (13.5-17.5) g/dL Hct 39.8 L (41-53) % MCV 85.9 (80-100) fL MCH 30.2 (26-34) PG MCHC 35.2 (30-36) % RDW 14.1 (11.6-14.8) % Plt Count 190 (150-400) X10^3/uL Neut % (Auto) 66.1 (50-75) % Lymph % (Auto) 21.9 L (25-40) % [place] % (Auto) 9.0 (3-14) % Eos % (Auto) 2.2 (2-4) % Baso % (Auto) 0.8 (0-2) % Neut # (Auto) 4400 (3811-8755) /uL Lymph # (Auto) 1500 (0353-1584) /uL [place] # (Auto) 600 (0-900) /uL Eos # (Auto) 100 (0-450) /uL Baso # (Auto) 100 (0-100) /uL PT (10.1-12.7) SECONDS INR (0.9-1.3) APTT 55 H 59 H (26-36) SECONDS Sodium 137 (137-145) mmol/L Potassium 2.7 L* (3.4-5.1) mmol/L Chloride 97 L (98-107) mmol/L Carbon Dioxide 31 (22-32) mmol/L BUN 10 (9-20) mg/dL Creatinine 0.58 L (0.66-1.25) mg/dL Estimated GFR > 60 (>60) mL/min BUN/Creatinine Ratio 17.2 (6-22) Glucose 197 H (80-110) mg/dL Calcium 9.0 (8.4-10.2) mg/dL Magnesium 1.5 L (1.6-2.3) mg/dL Total Bilirubin 2.0 H (0.2-1.3) mg/dL AST 39 (17-59) IU/L ALT 25 (<50) IU/L Alkaline Phosphatase 54 (38-126) U/L Total Creatine Kinase (55-170) U/L Troponin I (0.01-0.034) ng/mL NT-Pro-B Natriuret Pep (<450) pg/mL Total Protein 6.0 L (6.3-8.2) g/dL Albumin 3.5 (3.5-5.0) g/dL Globulin 2.5 (1.7-4.1) g/dL Albumin/Globulin Ratio 1.4 (1.0-2.8) Lipase (23-300) U/L Urine RBC (0-5/HPF) Urine WBC (0-5/HPF) Ur Squamous Epith Cells (0-5/HPF) Urine Bacteria (None) Ur Culture Indicated? 09/09/23 09/10/23 Range/Units 18:34 05:00 WBC 8.5 7.9 (4.5-11.0) X10^3/uL RBC 4.28 L 4.37 L (4.5-5.9) X10^6/uL Hgb 12.8 L 13.4 L (13.5-17.5) g/dL Hct 36.7 L 37.6 L (41-53) % MCV 85.8 86.0 (80-100) fL MCH 29.8 30.6 (26-34) PG MCHC 34.8 35.6 (30-36) % RDW 14.1 14.0 (11.6-14.8) % Plt Count 183 186 (150-400) X10^3/uL Neut % (Auto) 71.4 73.4 (50-75) % Lymph % (Auto) 16.6 L 16.2 L (25-40) % [place] % (Auto) 9.7 8.4 (3-14) % Eos % (Auto) 1.7 L 1.6 L (2-4) % Baso % (Auto) 0.6 0.4 (0-2) % Neut # (Auto) 6100 5800 (0600-0620) /uL Lymph # (Auto) 1400 1300 (5042-6267) /uL [place] # (Auto) 800 700 (0-900) /uL Eos # (Auto) 100 100 (0-450) /uL Baso # (Auto) 100 0 (0-100) /uL PT (10.1-12.7) SECONDS INR (0.9-1.3) APTT 60 H 58 H (26-36) SECONDS Sodium 133 L 138 (137-145) mmol/L Potassium 2.9 L 2.9 L (3.4-5.1) mmol/L Chloride 94 L 95 L (98-107) mmol/L Carbon Dioxide 29 30 (22-32) mmol/L BUN 15 11 (9-20) mg/dL Creatinine 0.64 L 0.56 L (0.66-1.25) mg/dL Estimated GFR > 60 > 60 (>60) mL/min BUN/Creatinine Ratio 23.4 H 19.6 (6-22) Glucose 254 H 209 H (80-110) mg/dL Calcium 8.9 8.2 L (8.4-10.2) mg/dL Magnesium (1.6-2.3) mg/dL Total Bilirubin 1.7 H (0.2-1.3) mg/dL AST 41 (17-59) IU/L ALT 32 (<50) IU/L Alkaline Phosphatase 56 (38-126) U/L Total Creatine Kinase 60 (55-170) U/L Troponin I 0.140 H* (0.01-0.034) ng/mL NT-Pro-B Natriuret Pep (<450) pg/mL Total Protein 5.6 L (6.3-8.2) g/dL Albumin 3.3 L (3.5-5.0) g/dL Globulin 2.3 (1.7-4.1) g/dL Albumin/Globulin Ratio 1.4 (1.0-2.8) Lipase (23-300) U/L Urine RBC (0-5/HPF) Urine WBC (0-5/HPF) Ur Squamous Epith Cells (0-5/HPF) Urine Bacteria (None) Ur Culture Indicated? Point of Care Testing Stool Occult Blood Negative Glucose POC 244 Urine Dip Bedside Urine Glucose Negative Bedside Urine Bilirubin - Negative Bedside Urine Ketone + 15 Urine Specific [place] 1.015 Bedside Urine Occult Blood - Negative Bedside Urine pH 6.0 Bedside Urine Protein - Negative Bedside Urine Urobilinogen - Negative Bedside Urine Nitrite - Negative Bedside Urine Leukocytes +/- 15 Esterase ECG Data Interpretation: Sinus rhythm rate of 100 ME 168 QRS of 90 QTC of 541. No acute ST elevation, patient had some mild depression in V4 5 6 on prior EKG on 02/17/2023 and T-waves upright today but no ST elevation appreciated throughout leads. Otherwise ST segments all appear similar. Repeat EKG Atrial fibrillation Ventricular rate 155 Normal axis Normal QRS ST depression laterally MDM Narrative Medical decision making narrative: 83-year-old male who has had intermittent tachycardia he does appear to be in atrial fibrillation although rate controlled in the department, he denies chest pain or shortness of breath but has had increasing swelling in his extremities over the past couple weeks. Patient's lab workup shows appropriate CBC, INR, use hypokalemic at 2.6 likely contributing to his arrhythmia. Bilirubin is 1.6 he does not have any other GI symptoms LFTs are otherwise negative. Troponin is positive at 0.27, he is asymptomatic currently. Chest x-ray showed no acute change. BNP is 2410, no priors for comparison. Patient did have an echo in 03/15/19 patient had EF of 60% at that time no pericardial fusion, patient had mildly dilated right ventricle, left atrium was mildly dilated right atrial size was normal no evidence of atrial septal defects there was some lipomatous hypertrophy of the intra-atrial septum noted. [id number] mitral annular calcification and mild mitral regurg aortic valve does moderately calcified leaflet mobility was moderately reduced aortic valve area was 1.8 cm2 and there was mild left asymmetric ventricular hypertrophy. Spoke with cardiology Dr. Gupta: Recommends transfer, patient was rate controlled during his stay here but troponin is trending down words suspect CHF maybe some AFib RVR but is not persistently in it. Does recommend echo, heparin, aspirin. Patient is updated. On current plan and findings. Seeking placement at facility for Cardiology. Patient signed out to Dr. Cohen while awaiting possible transfer. Dr. Cohen. Patient signed out to me by Dr. Og I have seen evaluated patient myself overall appears well. Patient has history of coronary artery disease with CABG questionable history of atrial fibrillation. 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 He is in AFib now. He would an episode where his heart rate went into the 200s while sitting at the side of the bed. Awake alert oriented without any obvious distress. He was given 5 mg of IV Lopressor. Appears that while he was in the ED all day he did not get p.o. metoprolol which he normally takes 50 mg. He was given the IV part slowed his heart rate and then he was given 100 mg of metoprolol. I did discuss case with Dr. Jackson who did not disagree with transferring patient. It is difficult to transfer the patient due to critical bed shortage. Multiple wait list. Troponin trending downward. Thought is might be cardioverted after a CHA. Signed out to Dr. Marino. Dr Marino: Received turned over. Reviewed patient's history and physical. He did have a episode where he became tachycardic with a heart rate in the 180s to 190s. He was placed on a diltiazem drip. This did rate control him. He is now off the drip. Patient has been stable. There has been no movement on any transfer today. Care turned back over to Dr. Cohen to re-evaluate and disposition. <Miles Viera MD - Last Filed: 09/21/23 07:18> Lab Data Labs: Lab Results 09/08/23 09/08/23 09/08/23 Range/Units 08:30 10:30 13:15 WBC 8.2 (4.5-11.0) X10^3/uL RBC 4.72 (4.5-5.9) X10^6/uL Hgb 14.2 (13.5-17.5) g/dL Hct 40.7 L (41-53) % MCV 86.2 (80-100) fL MCH 30.1 (26-34) PG MCHC 34.9 (30-36) % RDW 13.9 (11.6-14.8) % Plt Count 207 (150-400) X10^3/uL Neut % (Auto) 69.1 (50-75) % Lymph % (Auto) 19.7 L (25-40) % [place] % (Auto) 8.3 (3-14) % Eos % (Auto) 2.3 (2-4) % Baso % (Auto) 0.6 (0-2) % Neut # (Auto) 5700 (2067-8022) /uL Lymph # (Auto) 1600 (2178-1647) /uL [place] # (Auto) 700 (0-900) /uL Eos # (Auto) 200 (0-450) /uL Baso # (Auto) 0 (0-100) /uL PT 13.4 H (10.1-12.7) SECONDS INR 1.2 (0.9-1.3) APTT 27 (26-36) SECONDS Sodium 140 (137-145) mmol/L Potassium 2.6 L* (3.4-5.1) mmol/L Chloride 97 L (98-107) mmol/L Carbon Dioxide 32 (22-32) mmol/L BUN 14 (9-20) mg/dL Creatinine 0.74 (0.66-1.25) mg/dL Estimated GFR > 60 (>60) mL/min BUN/Creatinine Ratio 18.9 (6-22) Glucose 149 H (80-110) mg/dL Calcium 9.6 (8.4-10.2) mg/dL Magnesium 1.6 (1.6-2.3) mg/dL Total Bilirubin 1.6 H (0.2-1.3) mg/dL AST 27 (17-59) IU/L ALT 26 (<50) IU/L Alkaline Phosphatase 54 (38-126) U/L Total Creatine Kinase 62 (55-170) U/L Troponin I 0.217 H* 0.207 H* 0.182 H* (0.01-0.034) ng/mL NT-Pro-B Natriuret Pep 2410 H (<450) pg/mL Total Protein 6.5 (6.3-8.2) g/dL Albumin 3.9 (3.5-5.0) g/dL Globulin 2.6 (1.7-4.1) g/dL Albumin/Globulin Ratio 1.5 (1.0-2.8) Lipase 28 (23-300) U/L Urine RBC (0-5/HPF) Urine WBC (0-5/HPF) Ur Squamous Epith Cells (0-5/HPF) Urine Bacteria (None) Ur Culture Indicated? 09/08/23 09/09/23 09/09/23 Range/Units 19:25 01:25 02:47 WBC (4.5-11.0) X10^3/uL RBC (4.5-5.9) X10^6/uL Hgb (13.5-17.5) g/dL Hct (41-53) % MCV (80-100) fL MCH (26-34) PG MCHC (30-36) % RDW (11.6-14.8) % Plt Count (150-400) X10^3/uL Neut % (Auto) (50-75) % Lymph % (Auto) (25-40) % [place] % (Auto) (3-14) % Eos % (Auto) (2-4) % Baso % (Auto) (0-2) % Neut # (Auto) (6647-3440) /uL Lymph # (Auto) (6006-8946) /uL [place] # (Auto) (0-900) /uL Eos # (Auto) (0-450) /uL Baso # (Auto) (0-100) /uL PT (10.1-12.7) SECONDS INR (0.9-1.3) APTT 70 H D 58 H D (26-36) SECONDS Sodium (137-145) mmol/L Potassium (3.4-5.1) mmol/L Chloride (98-107) mmol/L Carbon Dioxide (22-32) mmol/L BUN (9-20) mg/dL Creatinine (0.66-1.25) mg/dL Estimated GFR (>60) mL/min BUN/Creatinine Ratio (6-22) Glucose (80-110) mg/dL Calcium (8.4-10.2) mg/dL Magnesium (1.6-2.3) mg/dL Total Bilirubin (0.2-1.3) mg/dL AST (17-59) IU/L ALT (<50) IU/L Alkaline Phosphatase (38-126) U/L Total Creatine Kinase (55-170) U/L Troponin I (0.01-0.034) ng/mL NT-Pro-B Natriuret Pep (<450) pg/mL Total Protein (6.3-8.2) g/dL Albumin (3.5-5.0) g/dL Globulin (1.7-4.1) g/dL Albumin/Globulin Ratio (1.0-2.8) Lipase (23-300) U/L Urine RBC 0-1/hpf (0-5/HPF) Urine WBC None seen (0-5/HPF) Ur Squamous Epith Cells None seen (0-5/HPF) Urine Bacteria None seen (None) Ur Culture Indicated? Cult not indicated 09/09/23 09/09/23 09/09/23 Range/Units 05:38 06:24 12:22 WBC 6.7 (4.5-11.0) X10^3/uL RBC 4.63 (4.5-5.9) X10^6/uL Hgb 14.0 (13.5-17.5) g/dL Hct 39.8 L (41-53) % MCV 85.9 (80-100) fL MCH 30.2 (26-34) PG MCHC 35.2 (30-36) % RDW 14.1 (11.6-14.8) % Plt Count 190 (150-400) X10^3/uL Neut % (Auto) 66.1 (50-75) % Lymph % (Auto) 21.9 L (25-40) % [place] % (Auto) 9.0 (3-14) % Eos % (Auto) 2.2 (2-4) % Baso % (Auto) 0.8 (0-2) % Neut # (Auto) 4400 (3793-9695) /uL Lymph # (Auto) 1500 (5695-8409) /uL [place] # (Auto) 600 (0-900) /uL Eos # (Auto) 100 (0-450) /uL Baso # (Auto) 100 (0-100) /uL PT (10.1-12.7) SECONDS INR (0.9-1.3) APTT 55 H 59 H (26-36) SECONDS Sodium 137 (137-145) mmol/L Potassium 2.7 L* (3.4-5.1) mmol/L Chloride 97 L (98-107) mmol/L Carbon Dioxide 31 (22-32) mmol/L BUN 10 (9-20) mg/dL Creatinine 0.58 L (0.66-1.25) mg/dL Estimated GFR > 60 (>60) mL/min BUN/Creatinine Ratio 17.2 (6-22) Glucose 197 H (80-110) mg/dL Calcium 9.0 (8.4-10.2) mg/dL Magnesium 1.5 L (1.6-2.3) mg/dL Total Bilirubin 2.0 H (0.2-1.3) mg/dL AST 39 (17-59) IU/L ALT 25 (<50) IU/L Alkaline Phosphatase 54 (38-126) U/L Total Creatine Kinase (55-170) U/L Troponin I (0.01-0.034) ng/mL NT-Pro-B Natriuret Pep (<450) pg/mL Total Protein 6.0 L (6.3-8.2) g/dL Albumin 3.5 (3.5-5.0) g/dL Globulin 2.5 (1.7-4.1) g/dL Albumin/Globulin Ratio 1.4 (1.0-2.8) Lipase (23-300) U/L Urine RBC (0-5/HPF) Urine WBC (0-5/HPF) Ur Squamous Epith Cells (0-5/HPF) Urine Bacteria (None) Ur Culture Indicated? 09/09/23 09/10/23 Range/Units 18:34 05:00 WBC 8.5 7.9 (4.5-11.0) X10^3/uL RBC 4.28 L 4.37 L (4.5-5.9) X10^6/uL Hgb 12.8 L 13.4 L (13.5-17.5) g/dL Hct 36.7 L 37.6 L (41-53) % MCV 85.8 86.0 (80-100) fL MCH 29.8 30.6 (26-34) PG MCHC 34.8 35.6 (30-36) % RDW 14.1 14.0 (11.6-14.8) % Plt Count 183 186 (150-400) X10^3/uL Neut % (Auto) 71.4 73.4 (50-75) % Lymph % (Auto) 16.6 L 16.2 L (25-40) % [place] % (Auto) 9.7 8.4 (3-14) % Eos % (Auto) 1.7 L 1.6 L (2-4) % Baso % (Auto) 0.6 0.4 (0-2) % Neut # (Auto) 6100 5800 (4347-1552) /uL Lymph # (Auto) 1400 1300 (8288-2245) /uL [place] # (Auto) 800 700 (0-900) /uL Eos # (Auto) 100 100 (0-450) /uL Baso # (Auto) 100 0 (0-100) /uL PT (10.1-12.7) SECONDS INR (0.9-1.3) APTT 60 H 58 H (26-36) SECONDS Sodium 133 L 138 (137-145) mmol/L Potassium 2.9 L 2.9 L (3.4-5.1) mmol/L Chloride 94 L 95 L (98-107) mmol/L Carbon Dioxide 29 30 (22-32) mmol/L BUN 15 11 (9-20) mg/dL Creatinine 0.64 L 0.56 L (0.66-1.25) mg/dL Estimated GFR > 60 > 60 (>60) mL/min BUN/Creatinine Ratio 23.4 H 19.6 (6-22) Glucose 254 H 209 H (80-110) mg/dL Calcium 8.9 8.2 L (8.4-10.2) mg/dL Magnesium (1.6-2.3) mg/dL Total Bilirubin 1.7 H (0.2-1.3) mg/dL AST 41 (17-59) IU/L ALT 32 (<50) IU/L Alkaline Phosphatase 56 (38-126) U/L Total Creatine Kinase 60 (55-170) U/L Troponin I 0.140 H* (0.01-0.034) ng/mL NT-Pro-B Natriuret Pep (<450) pg/mL Total Protein 5.6 L (6.3-8.2) g/dL Albumin 3.3 L (3.5-5.0) g/dL Globulin 2.3 (1.7-4.1) g/dL Albumin/Globulin Ratio 1.4 (1.0-2.8) Lipase (23-300) U/L Urine RBC (0-5/HPF) Urine WBC (0-5/HPF) Ur Squamous Epith Cells (0-5/HPF) Urine Bacteria (None) Ur Culture Indicated? Point of Care Testing Stool Occult Blood Negative Glucose POC 244 Urine Dip Bedside Urine Glucose Negative Bedside Urine Bilirubin - Negative Bedside Urine Ketone + 15 Urine Specific [place] 1.015 Bedside Urine Occult Blood - Negative Bedside Urine pH 6.0 Bedside Urine Protein - Negative Bedside Urine Urobilinogen - Negative Bedside Urine Nitrite - Negative Bedside Urine Leukocytes +/- 15 Esterase Imaging Data Echocardiogram: Radiologist's Impresson: [address] [address] Echocardiography Report Signed Patient: Anurag Ferraro MR#: [id number] : 1940 Acct:[id number] Age/Sex: 83 / M Date of Service: 09/08/23 Loc: ED Accession Number: [id number] Procedure: EC echo doppler complete Ordering Provider: Estela Og D.O. [place] +---------+ [facility] +---------+ : : [address] [place] [address]. : : : : [place], [place] : : : : [id number] : : : : Phone: [phone] Echocardiogram Report + + :Name: ANURAG FERRARO Study Date: 09/08/2023 Height: 71 in : :[facility] ReadingLocation: Weight: 212 lb : : Gender: Male BSA: 2.2 m2 : :: 1940 Age: 83 yrs BP: 199/93 mmHg: :Reason For Study: NSTEMI, CONGESTIVE HEART FAILURE : :Ordering Physician: LENKA, : :ESTELA Performed By: Digna Mcwilliams : :Referring: ESTELA OG : + + Interpretation Summary The patient was in atrial fibrillation with heart rates between 80-119 bpm during the exam. Mild concentric left ventricular hypertrophy with ejection fraction 55-60%. The left atrium is moderately dilated. The right atrium is mildly dilated. Mild aortic stenosis. The peak aortic velocity is 2.7 m/sec. Moderate mitral annular calcification. Moderate mitral regurgitation. Mild tricuspid regurgitation. Comparison is made with the echocardiogram of 05/19/2022, mitral regurgitation has progressed. Procedure: A two-dimensional transthoracic echocardiogram with color flow and Doppler was performed. The study quality was technically difficult. Comparison is made with the echocardiogram of 05/19/2022. The patient was in atrial fibrillation with heart rates between 80-119 bpm during the exam. Left Ventricle: There is mild concentric left ventricular hypertrophy. The ejection fraction is estimated to be 55-60%. There are no focal wall motion abnormalities. Diastolic function could not be accurately assessed due to atrial fibrillation. Right Ventricle: The right ventricle is normal in size and function. Atria: The left atrium is moderately dilated. The right atrium is mildly dilated. There is no Doppler evidence for an interatrial shunt. Mitral Valve: There is moderate mitral annular calcification. The mitral valve leaflets appear mildly thickened, but open well. There is moderate mitral regurgitation. Aortic Valve: The aortic valve is mildly calcified. The aortic valve is not well visualized. There is mild aortic stenosis. The peak aortic velocity is 2.7 m/sec. The aortic valve mean gradient is 16 mmHg. The calculated aortic valve area is 1.3 cm2. There is trace aortic regurgitation. Tricuspid Valve: The tricuspid valve is not well visualized, but is grossly normal. There is mild tricuspid regurgitation. Pulmonary artery pressures cannot be estimated because of the lack of a measurable TR jet velocity. Pulmonic Valve: The pulmonic valve is not well seen, but is grossly normal. There is no pulmonic valvular regurgitation. Great Vessels: The aortic root is normal size. The dimensions of the ascending aorta are normal. The IVC is of normal diameter and collapses greater than 50% with a sniff. This suggests a low right atrial pressure of 3 mm Hg. Pericardium/ Pleura There is no pericardial effusion. There is no pleural effusion. MMode/2D Measurements & Calculations LVIDd: 5.0 cm LVOT diam: 2.2 cm LVIDs: 3.6 cm Ao root diam: 3.8 cm FS: 28.0 % asc Aorta Diam: 3.2 cm IVSd: 0.92 cm Ao Arch Diam (Prox Trans): 3.3 cm LVPWd: 1.0 cm LV chavira. diameter/BSA (cm/m^2): 2.3 LV sys. diameter/BSA (cm/m^2): 1.7 LA A2 area: 25.5 cm2 RA long axis: 5.7 cm LA A4 area: 28.1 cm2 RA area: 24.5 cm2 LA length (vol): 6.2 cm RA vol: 89.9 ml LA vol: 98.9 ml RA : 41.6 ml/m2 LA vol index: 45.7 ml/m2 IVC diam: 1.7 cm RVD1 (basal): 3.9 cm RVD2 (mid): 3.0 cm TAPSE: 1.8 cm Doppler Measurements & Calculations Ao V2 max: 266.5 cm/sec LVOT Max Stanley: 94.7 cm/sec Ao V2 mean: 176.7 cm/sec LV V1 max P.6 mmHg Ao max P.8 mmHg LV V1 VTI: 20.4 cm Ao mean P.7 mmHg TISH(I,D): 1.4 cm2 Ao V2 VTI: 52.7 cm TISH(V,D): 1.3 cm2 sev ratio: 0.39 TISH indexed to BSA (cm^2/m^2): 0.66 MV E max stanley: 134.3 cm/sec PA pr(Accel): 39.6 mmHg MV A max stanley: 159.4 cm/sec MV E/A: 0.84 Med Peak E' Stanley: 4.5 cm/sec E/E' med: 29.6 Lat Peak E' Stanley: 4.7 cm/sec E/E' lat: 28.4 E/e' average: 29.0 MV dec time: 0.24 sec MVA(VTI): 2.4 cm2 MV V2 mean: 134.6 cm/sec SV(LVOT): 75.4 ml MV mean P.1 mmHg MV V2 VTI: 31.2 cm Electronically signed by: Nan Ríos on Reading Physician:09/08/2023 04:26 PM MDM Narrative Medical decision making narrative: 83-year-old male who has had intermittent tachycardia he does appear to be in atrial fibrillation although rate controlled in the department, he denies chest pain or shortness of breath but has had increasing swelling in his extremities over the past couple weeks. Patient's lab workup shows appropriate CBC, INR, use hypokalemic at 2.6 likely contributing to his arrhythmia. Bilirubin is 1.6 he does not have any other GI symptoms LFTs are otherwise negative. Troponin is positive at 0.27, he is asymptomatic currently. Chest x-ray showed no acute change. BNP is 2410, no priors for comparison. Patient did have an echo in 03/15/19 patient had EF of 60% at that time no pericardial fusion, patient had mildly dilated right ventricle, left atrium was mildly dilated right atrial size was normal no evidence of atrial septal defects there was some lipomatous hypertrophy of the intra-atrial septum noted. [id number] mitral annular calcification and mild mitral regurg aortic valve does moderately calcified leaflet mobility was moderately reduced aortic valve area was 1.8 cm2 and there was mild left asymmetric ventricular hypertrophy. Spoke with cardiology Dr. Gupta: Recommends transfer, patient was rate controlled during his stay here but troponin is trending down words suspect CHF maybe some AFib RVR but is not persistently in it. Does recommend echo, heparin, aspirin. Patient is updated. On current plan and findings. Seeking placement at facility for Cardiology. Patient signed out to Dr. Cohen while awaiting possible transfer. Dr. Cohen. Patient signed out to me by Dr. Og I have seen evaluated patient myself overall appears well. Patient has history of coronary artery disease with CABG questionable history of atrial fibrillation. 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 He is in AFib now. He would an episode where his heart rate went into the 200s while sitting at the side of the bed. Awake alert oriented without any obvious distress. He was given 5 mg of IV Lopressor. Appears that while he was in the ED all day he did not get p.o. metoprolol which he normally takes 50 mg. He was given the IV part slowed his heart rate and then he was given 100 mg of metoprolol. I did discuss case with Dr. Jackson who did not disagree with transferring patient. It is difficult to transfer the patient due to critical bed shortage. Multiple wait list. Troponin trending downward. Thought is might be cardioverted after a CHA. Signed out to Dr. Marino. Dr Marino: Received turned over. Reviewed patient's history and physical. He did have a episode where he became tachycardic with a heart rate in the 180s to 190s. He was placed on a diltiazem drip. This did rate control him. He is now off the drip. Patient has been stable. There has been no movement on any transfer today. Care turned back over to Dr. Cohen to re-evaluate and disposition. 09/09/[address] Cohen received sign-out from Dr. Rutherford patient is tachycardic earlier today received diltiazem he has been on metoprolol 100 mg twice a day. Awaiting for transfer. Previously to dock operations supervisor recommended transfer. However patient is symptomatic with AFib heart rate is mostly controlled he is anticoagulated on heparin. He has been hypokalemic but potassium is improving. 01:15 call to patient nursing staff concern for change in mental status. Patient woke up stating that he felt like he might . Heart rate was mildly fast and 1 teens 120s. He is is awake alert oriented able to follow commands no facial droop. [place] like there was buzzing in his chest. Glucose was checked it was 177. He is afebrile. This time he is not really having any focal deficits I do not think head CT is needed. He is actually mentating and appropriate he knows where he is he is following commands. Patient signed out to Dr. Viera September 10, 2023 at 7:[address] Viera:Maximiliano: ?sign out from Dr Cohen, patient awaiting for transfer to [facility]. Cardiology team has recommended patient to be transferred. Possible heart catheterization. Troponins have stabilized. Echocardiogram has been completed. Rate is controlled with oral metoprolol. Patient on heparin drip. However magnesium and potassium need to be addressed 7:30 a.m.. I spoke with patient he does understand we are waiting for a bed. No complaints at this time. 9:27 a.m.. I have been trying to get a hold of Dr. Gupta, cardiology, I did contact [facility] laborer beam house Martha Marie, there are no beds available at this time. Unable to accept patient. [place] [facility] [place] any hospital available to transfer 9:46 a.m.. I spoke with Dr. Gupta, cardiology. Patient does not not need to be transferred does not need heart catheterization. Needs observation and stress test. Would maintain oral rate control medication. Would transition over to Eliquis. No more heparin. Troponin is nonspecific and may be related to patient's atrial fibrillation. 10:00 a.m.. Spoke with primary care, Dr. Ward, he is aware that patient has been here for last 48 hours. He will see patient for admission. I did update patient and he does agree for admission and is very delighted that he will not need to be transferred. He denies denies any chest pain. Rate is controlled. Critical Care Time <Estela Og, - Last Filed: 09/09/23 11:47> Critical Care Time Critical Care Time: Yes Total Critical Care Time: 45 Attestation: The high probability of a clinically significant, sudden or life threatening deterioration of the [cardiac, pulm] system(s) required my full and direct attention, intervention and personal management. The aggregate critical care time was [] minutes. This time is in addition to time spent performing reported procedures but includes the following: [x] Data Review and interpretation [x] Patient assessment and monitoring of vital signs [x] Documentation [x] Medication orders and management Discharge Plan Departure Patient Disposition: Admitted as Observation Clinical Impression: Non-ST elevation SC (NSTEMI), Hypokalemia Atrial fibrillation Qualifiers: Atrial fibrillation type: persistent (not longstanding) Qualified Code(s): I48.19 - Other persistent atrial fibrillation Admit Date/Time: 09/10/23 12:15 Admit Provider: Kev Ward
[2023-09-08] MEDS: POTASSIUM CHLORIDE 20 MEQ TAB 40 MEQ PO (09:52)
[2023-09-08 10:13] LABS: NT-proBNP (BNP-Adult 18+) 2410 pg/mL (<450)
[2023-09-08] MEDS: POTASSIUM CHLORIDE IN WATER 10 MEQ/100 ML PIGGYBACK 100 MEQ IV ×4 (10:33→13:51)
[2023-09-08 11:12] LABS: Troponin I 0.207 ng/mL (0.01-0.034)
--- NOTE | 2023-09-08 12:29 | DI.ECHO.S_ITS ---
[facility] +---------+ : : [address] : [address] : : : : [id number] : : : : Phone: [phone]+ Echocardiogram Report + + :Name: ANURAG TITUS Study Date: 09/08/2023 Height: 71 in : :[facility] ReadingLocation: Weight: 212 lb : : Gender: Male BSA: 2.2 m2 : :: 1940 Age: 83 yrs BP: 199/93 mmHg: :Reason For Study: NSTEMI, CONGESTIVE HEART FAILURE : :Ordering Physician: LENKA, : :ESTELA Performed By: Digna Mcwilliams : :Referring: ESTELA OG : + + Interpretation Summary The patient was in atrial fibrillation with heart rates between 80-119 bpm during the exam. Mild concentric left ventricular hypertrophy with ejection fraction 55-60%. The left atrium is moderately dilated. The right atrium is mildly dilated. Mild aortic stenosis. The peak aortic velocity is 2.7 m/sec. Moderate mitral annular calcification. Moderate mitral regurgitation. Mild tricuspid regurgitation. Comparison is made with the echocardiogram of 05/19/2022, mitral regurgitation has progressed. Procedure: A two-dimensional transthoracic echocardiogram with color flow and Doppler was performed. The study quality was technically difficult. Comparison is made with the echocardiogram of 05/19/2022. The patient was in atrial fibrillation with heart rates between 80-119 bpm during the exam. Left Ventricle: There is mild concentric left ventricular hypertrophy. The ejection fraction is estimated to be 55-60%. There are no focal wall motion abnormalities. Diastolic function could not be accurately assessed due to atrial fibrillation. Right Ventricle: The right ventricle is normal in size and function. Atria: The left atrium is moderately dilated. The right atrium is mildly dilated. There is no Doppler evidence for an interatrial shunt. Mitral Valve: There is moderate mitral annular calcification. The mitral valve leaflets appear mildly thickened, but open well. There is moderate mitral regurgitation. Aortic Valve: The aortic valve is mildly calcified. The aortic valve is not well visualized. There is mild aortic stenosis. The peak aortic velocity is 2.7 m/sec. The aortic valve mean gradient is 16 mmHg. The calculated aortic valve area is 1.3 cm2. There is trace aortic regurgitation. Tricuspid Valve: The tricuspid valve is not well visualized, but is grossly normal. There is mild tricuspid regurgitation. Pulmonary artery pressures cannot be estimated because of the lack of a measurable TR jet velocity. Pulmonic Valve: The pulmonic valve is not well seen, but is grossly normal. There is no pulmonic valvular regurgitation. Great Vessels: The aortic root is normal size. The dimensions of the ascending aorta are normal. The IVC is of normal diameter and collapses greater than 50% with a sniff. This suggests a low right atrial pressure of 3 mm Hg. Pericardium/ Pleura There is no pericardial effusion. There is no pleural effusion. MMode/2D Measurements & Calculations LVIDd: 5.0 cm LVOT diam: 2.2 cm LVIDs: 3.6 cm Ao root diam: 3.8 cm FS: 28.0 % asc Aorta Diam: 3.2 cm IVSd: 0.92 cm Ao Arch Diam (Prox Trans): 3.3 cm LVPWd: 1.0 cm LV chavira. diameter/BSA (cm/m^2): 2.3 LV sys. diameter/BSA (cm/m^2): 1.7 LA A2 area: 25.5 cm2 RA long axis: 5.7 cm LA A4 area: 28.1 cm2 RA area: 24.5 cm2 LA length (vol): 6.2 cm RA vol: 89.9 ml LA vol: 98.9 ml RA : 41.6 ml/m2 LA vol index: 45.7 ml/m2 IVC diam: 1.7 cm RVD1 (basal): 3.9 cm RVD2 (mid): 3.0 cm TAPSE: 1.8 cm Doppler Measurements & Calculations Ao V2 max: 266.5 cm/sec LVOT Max Stanley: 94.7 cm/sec Ao V2 mean: 176.7 cm/sec LV V1 max P.6 mmHg Ao max P.8 mmHg LV V1 VTI: 20.4 cm Ao mean P.7 mmHg TISH(I,D): 1.4 cm2 Ao V2 VTI: 52.7 cm TISH(V,D): 1.3 cm2 sev ratio: 0.39 TISH indexed to BSA (cm^2/m^2): 0.66 MV E max stanley: 134.3 cm/sec PA pr(Accel): 39.6 mmHg MV A max stanley: 159.4 cm/sec MV E/A: 0.84 Med Peak E' Stanley: 4.5 cm/sec E/E' med: 29.6 Lat Peak E' Stanley: 4.7 cm/sec E/E' lat: 28.4 E/e' average: 29.0 MV dec time: 0.24 sec MVA(VTI): 2.4 cm2 MV V2 mean: 134.6 cm/sec SV(LVOT): 75.4 ml MV mean P.1 mmHg MV V2 VTI: 31.2 cm Electronically signed by: Nan Ríos on Reading Physician:09/08/2023 04:26 PM
--- NOTE | 2023-09-08 13:08 | PC.NURSE ---
Addendum entered by Shima Valentin CNA 09/08/23 14:25: 1328- [facility], spoke with Liza, currently helping with finding placement Original Note: Calling hospitals for transfer, patient is N-STEMI,CHF, on Heprin 1243- [facility], spoke with Melinda, on waitlist 1250- [facility], spoke with Patrica, on waitlist 1258- [place], spoke with Kev, not on waitlist 1300- [facility], spoke with Jesus, on waitlist
[2023-09-08] MEDS: HEPARIN 5,000 UNIT/ML VIAL 5000 UNIT IV (13:10)
[2023-09-08] MEDS: HEPARIN DRIP 25,000 UNIT/500 ML IV.SOLN 20 UNIT IV (13:14)
[2023-09-08] MEDS: METOPROLOL TARTRATE 5 MG/5 ML INJ IV ×2 (15:52→22:22)
[2023-09-08 16:11] LABS: Troponin I 0.182 ng/mL (0.01-0.034)
--- NOTE | 2023-09-08 16:27 | PC.NURSE ---
Late entry, at 1540 RN assited pt to [facility]. Pt had a BM, after returning to bed, pt's HR spiked to >200, pt states he felt like his HR was elevated. Dr. Rangel notified, EKG obtained, metoprolol ordered.
--- NOTE | 2023-09-08 17:02 | PC.NURSE ---
Pt sitting up in bed. a&ox4. pt denies sob, nausea and cp at this time. cms intact.
[2023-09-08 19:58] LABS: PTT Partial Thromboplastin Tim 70 SECONDS (26-36)
--- NOTE | 2023-09-08 20:55 | PC.NURSE ---
SILK OPENER note: Spoke to Rosa at [facility]. She is still trying to find patient a bed. Thanked her for her help.
[2023-09-08] MEDS: METOPROLOL ER 50 MG TABLET 100 MG PO (22:38)
[2023-09-09] VITALS (116 sets, daily range): BP systolic 138–195; BP diastolic 70–119; PULSE 60–190; RESP 16–34; O2SAT 92–97
[2023-09-09 01:51] LABS: PTT Partial Thromboplastin Tim 58 SECONDS (26-36)
[2023-09-09 04:08] LABS: Bacteria Urine None Seen; Culture Indicated Urine Cult Not Indicated; RBC Urine 0-1/HPF (0-5/HPF); Squamous Epithelial Cell Urine None Seen (0-5/HPF); WBC Urine None Seen (0-5/HPF)
[2023-09-09 05:52] LABS: Add Manual Diff / Slide Review NO; Basophils Absolute Auto 100 /uL (0-100); Basophils Percent Auto 0.8 % (0-2); Eosinophils Absolute Auto 100 /uL (0-450); Eosinophils Percent Auto 2.2 % (2-4); Hematocrit 39.8 % (41-53); Lymphocytes Absolute Auto 1500 /uL (1100-4500); Lymphocytes Percent Auto 21.9 % (25-40); Mean Corpuscular HGB Conc 35.2 % (30-36); Mean Corpuscular Hemoglobin 30.2 PG (26-34); Mean Corpuscular Volume 85.9 fL (80-100); Monocytes Absolute Auto 600 /uL (0-900); Neutrophils Absolute Auto 4400 /uL (1500-7000); Neutrophils Percent Auto 66.1 % (50-75); Platelet Count 190 X10^3/uL (150-400); Red Blood Cell Count 4.63 X10^6/uL (4.5-5.9); Red Cell Distribution Width 14.1 % (11.6-14.8); White Blood Cell Count 6.7 X10^3/uL (4.5-11.0)
[2023-09-09 06:02] LABS: PTT Partial Thromboplastin Tim 55 SECONDS (26-36)
--- NOTE | 2023-09-09 06:17 | PC.NURSE ---
At 0300, both of patient's IV site dressings were saturated with blood. Jo Ann LARRY changed the dressings. At 0522 this nurse notes again both IV sites saturated with blood. Patient repositioned at this time and this nurse notes there is some blood seeping from tip of penis. Patient states that is not normal for him. Dr. Cohen noticed, verbal order to pause heparin and draw the PTT. 0538: PTT is [address] Cohen aware and verbal order to restart the heparin drip at the rate he was on previous, see MAR. Monitoring patient patient closely for any signs of further bleeding.
[2023-09-09 06:22] LABS: Alanine Aminotransferase 25 IU/L (<50); Albumin 3.5 g/dL (3.5-5.0); Albumin Globulin Ratio 1.4 (1.0-2.8); Alkaline Phosphatase 54 U/L (38-126); Aspartate Aminotransferase 39 IU/L (17-59); BUN Creatinine Ratio 17.2 (6-22); Blood Urea Nitrogen 10 mg/dL (9-20); Carbon Dioxide 31 mmol/L (22-32); Chloride 97 mmol/L (98-107); Estimated Glomerular Filt Rate > 60 mL/min (>60); Globulin 2.5 g/dL (1.7-4.1); Glucose 197 mg/dL (80-110); HEMOLYSIS 35 (0-50); Sodium 137 mmol/L (137-145)
[2023-09-09 06:24] LABS: Potassium 2.7 mmol/L (3.4-5.1)
[2023-09-09 06:35] LABS: Magnesium 1.5 mg/dL (1.6-2.3)
--- NOTE | 2023-09-09 07:21 | PC.NURSE ---
0638 This nurse spoke with pharmacy and pharmacist states to recheck PTT after the heparin was restarted. Restarted heparin at 06:11. PTT due at 12:11.
[2023-09-09] MEDS: dilTIAZem 5 MG/ML SDV 10 MG IV (08:01)
[2023-09-09] MEDS: DILTIAZEM 125 MG/125 ML PIGGYBACK IV (08:01)
--- NOTE | 2023-09-09 08:19 | PC.NURSE ---
Several more IV line needed. Spoke with Dr. Marino and order being placed for multiple lumen PICC. DI nurse notified and on the way
--- NOTE | 2023-09-09 08:55 | DI.RAD.S_ITS ---
PROCEDURE: XR CHEST FOR PICC 1V INDICATIONS: Line placement COMPARISON: [facility], CR, XR CHEST 1V, 09/08/2023, 8:45. FINDINGS: PICC was placed by the intravenous therapy team from the left side. Fluoroscopic spot film demonstrates the tip of PICC projecting to the area of mid SVC. Heart is enlarged. Sternal wires are present with sternal wire fractures, unchanged. IMPRESSION: Tip of PICC projects to the area of mid SVC. Dictated by: Anamaria Garrett M.D. on 09/09/2023 at 9:35 Approved by: Anamaria Garrett M.D. on 09/09/2023 at 9:36
[2023-09-09] MEDS: INSULIN LISPRO 100 UNIT/ML 3ML VIAL SUBCUT ×3 (09:03→21:40)
[2023-09-09] MEDS: POTASSIUM CHLORIDE IN WATER 10 MEQ/100 ML PIGGYBACK 100 MEQ IV ×6 (09:22→14:35)
[2023-09-09] MEDS: MAGNESIUM SULFATE 2 GM/50 ML PIGGYBACK IV (09:26)
[2023-09-09] MEDS: METOPROLOL ER 50 MG TABLET 100 MG PO ×2 (09:32→21:37)
[2023-09-09] MEDS: METFORMIN HCL 500 MG TABLET 1000 MG PO ×2 (09:32→18:41)
[2023-09-09] MEDS: lisinopriL 20 MG TABLET PO (09:33)
--- NOTE | 2023-09-09 12:32 | PC.NURSE ---
spoke to Rylee from [facility] who states still no beds but looking better than yesterday
--- NOTE | 2023-09-09 12:46 | PC.NURSE ---
Dr. Marino wants to see how pt tolerates cardizem at 5. Rate dropped to 5 from 10
[2023-09-09 12:53] LABS: PTT Partial Thromboplastin Tim 59 SECONDS (26-36)
[2023-09-09] MEDS: HEPARIN DRIP 25,000 UNIT/500 ML IV.SOLN 20 UNIT IV (14:32)
--- NOTE | 2023-09-09 16:19 | PC.NURSE ---
Dr. Marino instructed for Diltiazem drip to be put on pause and observe how his HR does
[2023-09-09] MEDS: INSULIN NPH 100 UNIT/ML 10ML VIAL 13 UNIT SUBCUT (18:36)
[2023-09-09 18:45] LABS: Add Manual Diff / Slide Review NO; Basophils Absolute Auto 100 /uL (0-100); Basophils Percent Auto 0.6 % (0-2); Eosinophils Absolute Auto 100 /uL (0-450); Eosinophils Percent Auto 1.7 % (2-4); Hematocrit 36.7 % (41-53); Hemoglobin 12.8 g/dL (13.5-17.5); Lymphocytes Absolute Auto 1400 /uL (1100-4500); Lymphocytes Percent Auto 16.6 % (25-40); Mean Corpuscular HGB Conc 34.8 % (30-36); Mean Corpuscular Hemoglobin 29.8 PG (26-34); Mean Corpuscular Volume 85.8 fL (80-100); Monocytes Absolute Auto 800 /uL (0-900); Monocytes Percent Auto 9.7 % (3-14); Neutrophils Absolute Auto 6100 /uL (1500-7000); Neutrophils Percent Auto 71.4 % (50-75); Platelet Count 183 X10^3/uL (150-400); Red Blood Cell Count 4.28 X10^6/uL (4.5-5.9); Red Cell Distribution Width 14.1 % (11.6-14.8); White Blood Cell Count 8.5 X10^3/uL (4.5-11.0)
[2023-09-09 18:57] LABS: PTT Partial Thromboplastin Tim 60 SECONDS (26-36)
[2023-09-09 18:59] LABS: Alanine Aminotransferase 32 IU/L (<50); Albumin 3.3 g/dL (3.5-5.0); Albumin Globulin Ratio 1.4 (1.0-2.8); Alkaline Phosphatase 56 U/L (38-126); Aspartate Aminotransferase 41 IU/L (17-59); BUN Creatinine Ratio 23.4 (6-22); Bilirubin Total 1.7 mg/dL (0.2-1.3); Blood Urea Nitrogen 15 mg/dL (9-20); Calcium 8.9 mg/dL (8.4-10.2); Carbon Dioxide 29 mmol/L (22-32); Chloride 94 mmol/L (98-107); Creatine Kinase 60 U/L (55-170); Estimated Glomerular Filt Rate > 60 mL/min (>60); Globulin 2.3 g/dL (1.7-4.1); Glucose 254 mg/dL (80-110); HEMOLYSIS < 15 (0-50); Potassium 2.9 mmol/L (3.4-5.1); Sodium 133 mmol/L (137-145); Total Protein 5.6 g/dL (6.3-8.2)
[2023-09-09] MEDS: GLIMEPIRIDE 2 MG TABLET 1 MG PO (21:37)
--- NOTE | 2023-09-09 22:13 | PC.NURSE ---
Addendum entered by Sue Ohara CNA 09/10/23 02:25: [employer] note: Spoke to Pat at [facility] at 0224 regarding placement. Pat said there is no movement because they have 9 patients in their overflow. Thanked her for her help. Will continue to look for a bed. Addendum entered by Sue Ohara CNA 09/09/23 23:10: More info regarding trying to transfer this patient. [facility]: Patrica. Patient still on their list. [place]: [address]. They're pretty full and don't have a teley bed. Spoke to Emily at [facility]. She said patient is currently waitlisted at [facility], [facility], and [facility]. Emily is making calls around other hospitals to try to find us a bed. Thanked her for her help. Original Note: MONICA note: Attempting to find placement for patient. Called the following places with the following responses for placement, following up with folks that day shift spoke to. [facility]: [address]. She said they're clearing out from yesterday and would have their hospitalist call us when available. [facility]: [address]. No beds currently but to call back after 2299.
[2023-09-10] VITALS (59 sets, daily range): BP systolic 137–198; BP diastolic 62–118; PULSE 62–140; RESP 17–38; TEMP 36.2–36.8; O2SAT 92–98; BMI 29.5
[2023-09-10] MEDS: POTASSIUM CHLORIDE 20 MEQ TAB 40 MEQ PO (01:09)
--- NOTE | 2023-09-10 01:10 | PC.NURSE ---
This RN notices patient heart rate increases to 140s. This RN to check on patient who states, I think I'm going to right now. Provider made aware. New orders given. EKG at bedside.
--- NOTE | 2023-09-10 05:32 | PC.NURSE ---
CABLE TELEVISION LINE TECHNICIAN NOTE: Patient has had a total bed change at approx. 199906/09/23 and 0530 06/10/23. He is continent of bowel and bladder and is encouraged to ask for assistance if needed. It is recommended by the Nursing staff to use the bed strange and or urinal due to increased heart rate. The patient had spilled his urinal and required a complete bed change. He is educated on the importance of keeping his bed dry and free of urine for skin integrity.
[2023-09-10 05:33] LABS: PTT Partial Thromboplastin Tim 58 SECONDS (26-36)
[2023-09-10 05:35] LABS: Add Manual Diff / Slide Review NO; Basophils Absolute Auto 0 /uL (0-100); Basophils Percent Auto 0.4 % (0-2); Eosinophils Absolute Auto 100 /uL (0-450); Eosinophils Percent Auto 1.6 % (2-4); Hematocrit 37.6 % (41-53); Hemoglobin 13.4 g/dL (13.5-17.5); Lymphocytes Absolute Auto 1300 /uL (1100-4500); Lymphocytes Percent Auto 16.2 % (25-40); Mean Corpuscular HGB Conc 35.6 % (30-36); Mean Corpuscular Hemoglobin 30.6 PG (26-34); Monocytes Absolute Auto 700 /uL (0-900); Monocytes Percent Auto 8.4 % (3-14); Neutrophils Absolute Auto 5800 /uL (1500-7000); Neutrophils Percent Auto 73.4 % (50-75); Platelet Count 186 X10^3/uL (150-400); Red Blood Cell Count 4.37 X10^6/uL (4.5-5.9); White Blood Cell Count 7.9 X10^3/uL (4.5-11.0)
[2023-09-10 05:36] LABS: BUN Creatinine Ratio 19.6 (6-22); Blood Urea Nitrogen 11 mg/dL (9-20); Calcium 8.2 mg/dL (8.4-10.2); Carbon Dioxide 30 mmol/L (22-32); Chloride 95 mmol/L (98-107); Estimated Glomerular Filt Rate > 60 mL/min (>60); Glucose 209 mg/dL (80-110); HEMOLYSIS < 15 (0-50); Potassium 2.9 mmol/L (3.4-5.1); Sodium 138 mmol/L (137-145)
[2023-09-10] MEDS: INSULIN NPH 100 UNIT/ML 10ML VIAL 18 UNIT SUBCUT (08:41)
[2023-09-10] MEDS: INSULIN LISPRO 100 UNIT/ML 3ML VIAL SUBCUT ×3 (08:44→21:06)
[2023-09-10] MEDS: METFORMIN HCL 500 MG TABLET 1000 MG PO ×2 (08:45→20:59)
[2023-09-10] MEDS: METOPROLOL ER 50 MG TABLET 100 MG PO ×2 (08:45→20:58)
[2023-09-10] MEDS: lisinopriL 20 MG TABLET PO (08:46)
[2023-09-10] MEDS: GLIMEPIRIDE 2 MG TABLET 1 MG PO ×2 (08:47→20:59)
--- NOTE | 2023-09-10 09:30 | PC.NURSE ---
Patient refused eating breakfast because he takes 18units of R and 18units of N insulin every morning. Provider notified and patient given insulin per MAR, which is less lispro than he usually takes. He states his blood sugar will spike up if he eats anything. Provider notified. Patient also refused atorvastatin because it makes him hypertensive.
[2023-09-10] MEDS: MAGNESIUM SULFATE 2 GM/50 ML PIGGYBACK IV (09:47)
[2023-09-10] MEDS: POTASSIUM CHLORIDE 20 MEQ TAB PO (09:47)
--- NOTE | 2023-09-10 10:07 | DI.NM.S_ITS ---
PROCEDURE: MS ISABELLA PERF SPECT R&S PHARM Rest and pharmacological stress myocardial perfusion SPECT with gated imaging and ejection fraction RADIOPHARMACEUTICAL: 25.3 mCi Tc-99m tetrafosmin IV at rest and 27 mCi Tc-99m tetrafosmin IV at peak effect of pharmacological stress. Pos-vrj-stderyiu was performed. INDICATIONS: afib TECHNIQUE: Radiopharmaceutical was injected at peak stress test, and also at rest. SPECT images were obtained. SPECT myocardial perfusion images were displayed in short axis, horizontal long axis, and vertical long axis views. Gated images were reviewed using [employer] software. COMPARISON: None. CARDIAC STRESS: A pharmacologic stress test was performed under the supervision of an attending staff, using an infusion of lexiscan 0.4mg IV X1. Hemodynamic data: There is normal blood pressure and heart rate response to pharmacologic stress. Symptoms: The patient denied anginal chest pain. Aminophylline: none EKG: No diagnostic changes of ischemia; no ectopy. FINDINGS: Raw data: There is good myocardial uptake of radiotracer. No significant motion artifacts. Lwzo-py-lxxrr ratio is 0.27 (normal is less than 0.38 for tetrafosmin tracer). Left ventricle function: Gated images demonstrate normal left ventricular wall thickening. No segmental wall motion abnormalities. No transient ischemic dilation; TID is 0.81 (normal less than 1.3). Left ventricle resting end diastolic volume is 109 mL. Left ventricle stress ejection fraction is 66%; normal range is above 45%. Myocardial perfusion: There is a mildly intense fixed distal anterior wall defect consistent with prior non-transmural infarction. No significant ischemia. No prone images obtained. IMPRESSION: Abnormal pharm nuclear stress test consistent with prior infarction. No ischemia. 1) There is a mildly intense fixed distal anterior wall defect consistent with prior non-transmural infarction. No significant ischemia. 2) Normal left ventricular size, wall motion, and systolic function (EF post stress 66%). 3) No ST changes with lexiscan. 4) No angina during the study. 5) No prior nuclear stress test available for comparison. Dictated by: Dirk Gupta MD on 09/11/2023 at 16:46 Approved by: Dirk Gupta MD on 09/11/2023 at 16:48
--- NOTE | 2023-09-10 10:08 | P.HP_ITS ---
History of Present Illness History of Present Illness Date Patient Seen: 09/10/23 Time Patient Seen: 10:09 Chief complaint: heart problems T-7 Narrative: Patient presented to the ER on the seventh with sense of his heart racing out of control. He was found to be in atrial fibrillation with rapid ventricular response. He previously had an EKG done during an ER visit for possible TIA back in January of this year. That was not addressed at that time or sense Any event his troponin was minimally elevated and he had some significant electrolyte disturbances including hypokalemia hypomagnesemia etcetera Cardiology was consulted who recommended transfer to tertiary center for probable cardiac catheterization etcetera given his high-risk situation with his known coronary disease diabetes etcetera However a facility with availability was not able to be found and he is remained in our emergency department for the last 48 hours or more while working on controlling his heart rate and correcting his electrolyte deficiencies In that process he would an echocardiogram which was essentially unremarkable and Cardiology (Dr. Gupta) apparently now feels like his bump in troponin is not related to significant obstructive coronary disease but more demand ischemia secondary to his atrial fibrillation and recommend stress testing but does not think that he needs cardiac catheterization at this time. 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 insulin (09/25/15) Type 2 diabetes mellitus with other circulatory complication (08/07/15) History of heart bypass surgery (08/07/15) Essential hypertension (08/07/15) Coronary artery disease involving [place] coronary artery of [place] heart without angina pectoris (08/07/15) Mixed hyperlipidemia History of adenomatous polyp of colon (07/10/11) Surgical History 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) Status post cholecystectomy Status post appendectomy Family History Father Family history of leukemia Mother Family history of [place] (myocardial infarction) Social History marital status: unmarried,single number of children: 0 household members: none lives independently: Yes caregiver/support person: No housing: house pets and animals: No education level: other occupational status: other 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 latesha/adventism: Agnostic travel history: recent leisure activities: reading and other Smoking Status: Former smoker Tobacco: How many years used: 5 Smokeless tobacco user: other quit status: quit date established second hand exposure: No alcohol intake: never substance use type: does not use Meds Home Medications and Allergies Home Medications Medication Instructions Recorded Confirmed Type cholecalciferol (vitamin D3) 25 5,000 iu PO QDAY ##0 07/10/11 09/08/23 History mcg (1,000 unit) tablet (Vitamin D3) glimepiride 1 mg tablet 1 mg PO BID 04/19/18 09/08/23 History lisinopril 20 mg tablet 20 mg PO DAILY 08/05/19 09/08/23 History simvastatin 20 mg tablet 20 mg PO DAILY 08/05/19 09/08/23 History Occuguard Plus See Rx Instructions .Route .COMPLEX 02/06/20 09/08/23 History metformin 1,000 mg tablet 1,000 mg PO BID ##0 02/06/20 09/08/23 History insulin regular human 100 unit/mL See Rx Instructions SUBCUT QAC 12/24/20 09/08/23 History injection solution (Humulin R Regular U-100 Insulin) insulin NPH isoph U-100 human 100 See Rx Instructions SUBCUT BID 03/19/21 09/08/23 History unit/mL subcutaneous suspension (Humulin N NPH U-100 Insulin (isophane susp)) metoprolol tartrate 50 mg tablet 50 mg PO BID 06/27/22 09/08/23 History chlorthalidone 25 mg tablet 12.5 mg (1/2 x 25 mg) PO Q OTHER 02/20/23 09/08/23 Rx DAY #45 tabs aspirin 81 mg tablet,delayed 81 mg PO DAILY 06/18/23 09/08/23 History release Allergies Allergy/AdvReac Type Severity Reaction Status Date / Time No Known Drug Allergies Allergy Verified 09/08/23 08:33 Review of Systems Review of Systems ROS: Yes All systems reviewed with the patient and are negative except as otherwise documented Exam Vital Signs (past 8 hours): - 09/10/23 02:15 09/10/23 02:30 09/10/23 02:30 Pulse Rate 96 H 78 Respiratory Rate 24 23 Blood Pressure 172/92 H Pulse Oximetry 96 94 Oxygen Delivery Method 09/10/23 02:45 09/10/23 03:00 09/10/23 03:00 Pulse Rate 86 94 H Respiratory Rate 24 22 Blood Pressure 166/105 H Pulse Oximetry 96 95 Oxygen Delivery Method 09/10/23 03:15 09/10/23 03:30 09/10/23 03:30 Pulse Rate 87 81 Respiratory Rate 24 23 Blood Pressure 169/103 H Pulse Oximetry 94 95 Oxygen Delivery Method 09/10/23 03:45 09/10/23 04:00 09/10/23 04:00 Pulse Rate 86 87 Respiratory Rate 23 23 Blood Pressure 179/77 H Pulse Oximetry 94 95 Oxygen Delivery Method 09/10/23 04:15 09/10/23 04:30 09/10/23 04:30 Pulse Rate 82 77 Respiratory Rate 20 22 Blood Pressure 163/103 H Pulse Oximetry 95 96 Oxygen Delivery Method 09/10/23 04:45 09/10/23 05:00 09/10/23 05:00 Pulse Rate 75 92 H Respiratory Rate 20 22 Blood Pressure 146/104 H Pulse Oximetry 94 93 Oxygen Delivery Method 09/10/23 05:15 09/10/23 05:30 09/10/23 05:45 Pulse Rate 104 H 84 83 Respiratory Rate 21 24 22 Blood Pressure Pulse Oximetry 93 97 96 Oxygen Delivery Method 09/10/23 06:00 09/10/23 06:15 09/10/23 06:30 Pulse Rate 84 68 80 Respiratory Rate 20 20 21 Blood Pressure Pulse Oximetry 97 96 96 Oxygen Delivery Method 09/10/23 06:45 09/10/23 07:00 09/10/23 07:15 Pulse Rate 71 128 H 88 Respiratory Rate 18 38 H 22 Blood Pressure Pulse Oximetry 95 97 95 Oxygen Delivery Method 09/10/23 07:30 09/10/23 07:45 09/10/23 08:00 Pulse Rate 95 H 134 H 98 H Respiratory Rate 23 38 H 23 Blood Pressure Pulse Oximetry 95 96 95 Oxygen Delivery Method Room Air 09/10/23 08:15 09/10/23 08:30 09/10/23 08:41 Pulse Rate 94 H 108 H Respiratory Rate 25 H 25 H Blood Pressure 198/86 H Pulse Oximetry 95 94 Oxygen Delivery Method 09/10/23 08:41 09/10/23 08:45 09/10/23 08:45 Pulse Rate 103 H 100 H 96 H Respiratory Rate 27 H 25 H Blood Pressure 198/86 H Pulse Oximetry 95 94 Oxygen Delivery Method 09/10/23 08:46 09/10/23 09:00 09/10/23 09:00 Pulse Rate 101 H 106 H Respiratory Rate 24 Blood Pressure 198/86 H 192/116 H Pulse Oximetry 94 Oxygen Delivery Method 09/10/23 09:15 09/10/23 09:30 09/10/23 09:30 Pulse Rate 109 H 108 H Respiratory Rate 24 22 Blood Pressure 160/103 H Pulse Oximetry 95 92 Oxygen Delivery Method 09/10/23 09:45 09/10/23 09:50 09/10/23 10:00 Pulse Rate 104 H 103 H 106 H Respiratory Rate 34 H 23 Blood Pressure 160/103 H Pulse Oximetry 95 94 Oxygen Delivery Method Room Air Oxygen Delivery Method Room Air Narrative Exam Narrative: Elderly male in no obvious distress HEENT-unremarkable Neck-no bruits Lungs-clear with good breath sounds Heart-irregularly irregular with grade 2/6 systolic ejection murmur along the left and right sternal borders without particular radiation Abdomen-positive bowel tones soft nontender nondistended Objective Labs 09/10/23 05:00 09/10/23 05:00 Labs: Laboratory Results - last 24 hr 09/09/23 09/09/23 09/10/23 12:22 18:34 05:00 WBC 8.5 7.9 RBC 4.28 L 4.37 L Hgb 12.8 L 13.4 L Hct 36.7 L 37.6 L MCV 85.8 86.0 MCH 29.8 30.6 MCHC 34.8 35.6 RDW 14.1 14.0 Plt Count 183 186 Neut % (Auto) 71.4 73.4 Lymph % (Auto) 16.6 L 16.2 L Dukes % (Auto) 9.7 8.4 Eos % (Auto) 1.7 L 1.6 L Baso % (Auto) 0.6 0.4 Neut # (Auto) 6100 5800 Lymph # (Auto) 1400 1300 Dukes # (Auto) 800 700 Eos # (Auto) 100 100 Baso # (Auto) 100 0 APTT 59 H 60 H 58 H Sodium 133 L 138 Potassium 2.9 L 2.9 L Chloride 94 L 95 L Carbon Dioxide 29 30 BUN 15 11 Creatinine 0.64 L 0.56 L Estimated GFR > 60 > 60 BUN/Creatinine Ratio 23.4 H 19.6 Glucose 254 H 209 H Calcium 8.9 8.2 L Total Bilirubin 1.7 H AST 41 ALT 32 Alkaline Phosphatase 56 Total Creatine Kinase 60 Troponin I 0.140 H* Total Protein 5.6 L Albumin 3.3 L Globulin 2.3 Albumin/Globulin Ratio 1.4 Assessment & Plan Assessment & Plan narrative: 1. Atrial fibrillation-apparently of relatively new onset. Rate has been controlled with increased dose of oral metoprolol. Patient should be chronically anticoagulated which will be initiated here with direct oral anticoagulant. Patient was previously on unfractionated heparin drip for potential cardiac issues but that has subsequently been discontinued at the direction of Cardiology. Because of the bump in troponin and this relatively new AFib probably does make sense to do a cardiac ischemia evaluation with some sort of cardiac stress testing. Given his inability to walk etcetera I think myocardial perfusion with pharmacological stress makes the most sense. 2. Diabetes-patient has an unusual regimen with his insulin. We been unable to replicate that here in the hospital in part because we need to have much more rigid dosing his seems fairly subjective and or variable. For the moment will continue with the b.i.d. NPH as he does use at home on a regular basis at slightly lower dose so we avoid hypoglycemia given his probably better controlled diet here in the hospital, with some coverage insulin to go with that. Patient reports he uses preprandial insulin but when I try to pin him down on how much he uses turns out he does not give himself routine preprandial insulin for lunch or dinner breakfast seems to be a big meal any does actually give himself a fair amount of regular insulin along with his NPH before his breakfast. I have asked him to put up with our regimen here while we try and find some better control his blood sugars. Frankly they have not really been super [id number] here although I would aim for blood sugar 180 or less as a target 3. Hypokalemia/hypomagnesemia-likely secondary to his thiazide diuretic. This should be discontinued and electrolytes corrected. This includes correcting his magnesium and potassium. We will give doses IV and then resume with oral doses as well. Followed carefully and closely 4. Hypertension-numbers are still a bit elevated despite the increased dose beta-yaritza as above. I am going to increase his lisinopril and will continue monitor his numbers especially in the setting of a bump in his troponin 5. Weakness-patient deserves evaluation with Physical and Occupational therapy to evaluate his ability to return home to independent living where he lives alone and certainly needs to be safe in that environment 6. Code status-patient should be a full code per his request 7. VTE prophylaxis-patient initiated with direct oral anticoagulant as above for atrial fibrillation which will certainly provide chemo prophylaxis for VTE as well.
--- NOTE | 2023-09-10 11:25 | PC.NURSE ---
Dr. Viera Okayed pausing heparin and magnesium drips because DI nurse is taking patient to stress test. See MAR. Patient able to stand at bedside and sit in a wheelchair for transport. Joanne RASHID nurse assisting patient to stress test, then up to room 207. Pt's belongings sent to room 207.
[2023-09-10] MEDS: APIXABAN 5 MG TABLET PO ×2 (12:53→20:59)
[2023-09-10] MEDS: MAGNESIUM OXIDE 400 MG TABLET PO ×2 (12:53→20:59)
[2023-09-10] MEDS: POTASSIUM CHLORIDE IN WATER 10 MEQ/100 ML PIGGYBACK 100 MEQ IV ×6 (12:55→18:47)
--- NOTE | 2023-09-10 15:00 | OT.IP.EVAL ---
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 (09/25/15) Mixed hyperlipidemia Type 2 diabetes mellitus with hyperglycemia (12/04/15) Type 2 diabetes mellitus with other circulatory complication (08/07/15) Surgical History (Last Reviewed 09/10/23 @ 10:26 by Kev Ward MD) Status post appendectomy Status post cholecystectomy 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) Occupational Therapy Inpatient Evaluation/Re-Eval M1 PT/OT-IP Prior Functional Status Start: 09/10/23 14:59 Freq: NEEDED Status: Active Protocol: Document 09/10/23 14:23 [facility] (Rec: 09/10/23 15:30 [facility] [id number]) Medical Review Prior Functional Status Communication Indepedent. Mobility and Gait Pt does not use a device at home, but admits to touching surfaces as times for security . pt has had one fall in the past 3 months and 3 falls in the past 5 years. Activities of Daily Living and IADL's Pt does all his ADl,IADl and drives. Prior Functional Level (Other details) Pt has hired assist for yard work. Social History Household Members none Living Arrangements House Number of Floors (Floors) 3 or More Floors Number of Stairs To Enter/Railing? 5 steps with no rail to platform which in level to the doorway in the front. Pt has 4 steps with one rail to multiple bedrooms and 8 steps with one rail to the main area of living, bedroom, bathroom, and kitchen. Per pt states off the kitchen in an extension when there is another 4 steps going up with one rail. Home Environment Standard Height Toilet,High Toilet,Walk in Shower,Tub/ Shower Home Equipment Straight Cane,Crutches,Grab Bars Near Toilet,Grab Bars In Shower Additional Social History Comment Pt states has no family to be able to assist if needed. M2 OT-IP Current Condition Start: 09/10/23 14:59 Freq: Status: Active Protocol: Document 09/10/23 14: [facility] (Rec: 09/10/23 15:30 [facility] [id number]) Occupational Therapy Current Condition Current Condition Evaluation Date 09/10/23 Treatment Diagnosis A-fib RVR Diagnosis Onset Date 09/10/23 M3 OT- IP Subjective and Pain Start: 09/10/23 14:59 Freq: Status: Active Protocol: Document 09/10/23 14: [facility] (Rec: 09/10/23 15:30 [facility] [id number]) OT- Subjective Occupational Therapy Visit Type Type Initial Evaluation Visit Start Time 14: Visit Stop Time 15:00 Total Visit Minutes 37 Occupational Therapy Visit Comments Patient Comments Pt wanting to get up to use the bathroom. Patient/Caregiver Goals TO go home. OT Pain Assessment Pain When Pain Assessed At Rest Pain Present Pain Present Pain Reported M4 OT- IP ADL's Start: 09/10/23 14:59 Freq: Status: Active Protocol: Document 09/10/23 14: [facility] (Rec: 09/10/23 15:30 [facility] [id number]) OT [id number] Comments OT Self-Feeding Comments NOt at meal time, no issues anticipated. OT ADL-Grooming General Evaluation Grooming Ability Independent Areas Needing Assistance Retrieving/Set-up of Grooming Items Comments OT Grooming Comments Independent while standing. OT ADL-Oral Care General Eval Oral Care Ability Independent OT ADL-Dressing General Eval Lower Body Dressing Ability Standby Assistance Comments OT Dressing Comments SBA while standing to take off his socks and independent to guille them while seated. OT ADL-Toileting General Evaluation Toileting Ability Standby Assistance Comments OT Toileting Comments Pt needing vc for completeness to wipe. OT ADL-Bathing Comments OT Bathing Comments Pt would benefit from a shower chair to use at home. M5 OT- IP IADL's Start: 09/10/23 14:59 Freq: Status: Active Protocol: Document 09/10/23 14:23 [facility] (Rec: 09/10/23 15:30 [facility] [id number]) OT-Instrumental Activities of Daily Living Home Safety Awareness Awareness of Need for Assistance at Home Good Awareness Ability to Problem Solve Emergency Able to Problem Solve Situations Medication Management Medication Management Comments Pt may benefit from supervision for insulin needs. Pt states takes insulin prior to eating. Pt's doctor aware. Money Management Money Management No Deficits Identified Driving Driving Comments Pt states only drives during the day and short distances. Pt states is considering not to drive on vacation this year and just take a plane there to [place]. M6 OT- IP Functional Cognition Start: 09/10/23 14:59 Freq: Status: Active Protocol: Document 09/10/23 14:23 [facility] (Rec: 09/10/23 15:30 [facility] [id number]) Cognitive Factors Limiting Selfcare Function Cognitive Ability Level of Alertness Alert Patient Orientation Name,Age,Birthday,Month,Date, Year,Day of Week,Place, Situation Ability to Follow Commands Able to Follow Multi-Step Commands Memory Description Short Term Impaired Problem Solving Ability No deficits Noted Cognitive Tests SLUMS Pt scored 25/30 on the SLUMS which implies mild neurocognitive disorder, pt states has had TIA's in the past. Pt states has to type things in his computer to remind himself of appointment. Cognitive Comments Cognitive Assessment Comments Pt scored 109 seconds on [place] Making Part B which implies 60% for his age group and mild impairment for visual attention, speed of processing, mental flexibility, executive functioning, and task switching. Pt highly aware not to drive at night or in bad weather. OT- Vision and Hearing OT- Hearing Assessment OT- Hearing Assessment WFL OT- Vision Assessment Visual Acuity Glasses For Reading Visual Attentiveness WFL Occular Pursuits WFL Visual [place]allister WFL Diplopia Absent M7 OT- IP Mobility and Balance Start: 09/10/23 14:59 Freq: Status: Active Protocol: Document 09/10/23 14:23 [facility] (Rec: 09/10/23 15:30 [facility] [id number]) OT- Bed Mobility Assessment Supine to Sit Supine to Sit Assist Independent Sit to Supine Sit to Supine Assist Independent OT-Transfer Assessment Sit to and From Stand Sit to and from Stand Standby Assistance Transfers Transfer Ability Standby Assistance,Contact Guard Assistance Technique Transfer Destination Bed,Toilet Transfer Technique Stand Step Pivot Devices Transfer Assistive Devices None,Gait Belt,Front Wheeled Walker Comments Mobility Comments Pt able to get out of bed on his own. CGA to close SBA to stand and SBA with FWW and without needing close SBA , use of surfaces to touch and occasional CGA from the therapist for his balance. At this time would be best to use FWW until more steady on his feet. OT- Balance Assessment Sitting Balance and Reactions Static Sitting Balance Ability Normal Dynamic Sitting Balance Ability Good Standing Balance and Reactions Static Standing Balance Ability Good Dynamic Standing Balance Ability Fair M8 OT- IP Objective Assessments Start: 09/10/23 14:59 Freq: Status: Active Protocol: Document 09/10/23 14:23 [facility] (Rec: 09/10/23 15:30 [facility] [id number]) OT Gross Range of Motion Upper Extremity Range of Motion Assessment Within Functional Limits OT Strength Upper Extremity Strength Assessment Within Functional Limits Comments Strength Comments RUE 5/5, LUE 4+/5 OT- Coordination Assessment Upper Extremity Finger to Nose Test Within Functional Limits Finger Tapping Test Within Functional Limits OT-Muscle Tone Assessment Muscle Tone WNL Yes OT Sensation Assessment Comments Summary Comments Intact for light touch and proprioception M9 OT- IP Assessment and Plan Start: 09/10/23 14:59 Freq: Status: Active Protocol: Document 09/10/23 14:23 [facility] (Rec: 09/10/23 15:30 [facility] [id number]) OT Summary Assessment and Plan Potential Rehabilitation Potential Good Analytic Complexity at Evaluation Moderate Summary OT Impairments Balance,Functional Mobility, Dressing,Toileting,Bathing, Toilet Transfers,Shower Transfers,Activity Tolerance Progress Towards Goals Progressing Toward Goals Assessment Summary Pt MOD complexity and here due to A-fib RVR and main barriers are steps, decreased dynamic balance, and at this time would benefit from fww and shower chair. Pt scored 25/30 the SLUMS which implies mild neurocognitive disorder, pt attributes it to his past TIAs. Pt scored 109 seconds on [place] Making Part B which implies mild deficits for visual attention, speed or processing, executive functioning, mental flexibility , and task switching. Pt would benefit from fww and shower chair at home. Pt may also benefit from outpt PT for dynamic balance needs. Goals Dressing Goal Independent Toileting Goal Independent Bathing Goal Independent Toilet Transfer Goal Independent Shower Transfer Goal Independent Days to Meet Goals 2 Frequency of Treatment Frequency Of Treatment Once a Day Treatment Plan OT Treatment Plan ADL Training,Functional Mobility,Patient/Family Education,Discharge Planning Other Treatment Recommendations and Next shower Treatment Focus Discharge Recommendations OT Discharge Recommendations Home,Outpatient PT Other Discharge Recommendations Pt to seek assist to help fine tune his routine for diabetic needs. Transportation Needs at Discharge Private Vehicle
--- NOTE | 2023-09-10 15:59 | PT.IIE ---
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 Mobility and Gait Pt does not use a device at home, but admits to touching surfaces as times for security . Activities of Daily Living and IADL's Pt does all his ADL,IADL and drives. Prior Functional Level (Other details) Pt has hired assist for yard work. Social History Household Members none Living Arrangements House Number of Floors (Floors) 3 or More Floors Number of Stairs To Enter/Railing? 5 steps with no rail to platform which in level to the doorway in the front. Pt has 4 steps with one rail to multiple bedrooms and 8 steps with one rail to the main area of living, bedroom, bathroom, and kitchen. Per pt off the kitchen in an extension when there is another 4 steps going up with one rail. Home Environment Standard Height Toilet,High Toilet,Walk in Shower,Tub/ Shower Home Equipment Straight Cane,Crutches,Grab Bars Near Toilet,Grab Bars In Shower Additional Social History Comment Pt states has no family to be able to assist if needed. M1 PT/OT-IP Prior Functional Status Start: 09/10/23 16:09 Freq: NEEDED Status: Active Protocol: Document 09/10/23 16:09 [facility] (Rec: 09/10/23 16:31 AB [id number]) Medical Review Prior Functional Status Medical History Reviewed Yes Diet/Fluid Consistency Regular Communication Indepedent. Mobility and Gait Pt does not use a device at home, but admits to touching surfaces as times for security . Activities of Daily Living and IADL's Pt does all his ADL,IADL and drives. Prior Functional Level (Other details) Pt has hired assist for yard work. Social History Household Members none Living Arrangements House Number of Floors (Floors) 3 or More Floors Number of Stairs To Enter/Railing? 5 steps with no rail to platform which in level to the doorway in the front. Pt has 4 steps with one rail to multiple bedrooms and 8 steps with one rail to the main area of living, bedroom, bathroom, and kitchen. Per pt off the kitchen in an extension when there is another 4 steps going up with one rail. Home Environment Standard Height Toilet,High Toilet,Walk in Shower,Tub/ Shower Home Equipment Straight Cane,Crutches,Grab Bars Near Toilet,Grab Bars In Shower Additional Social History Comment Pt states has no family to be able to assist if needed. M2 PT-IP Current Condition Start: 09/10/23 16:09 Freq: NEEDED Status: Active Protocol: Document 09/10/23 16:09 [facility] (Rec: 09/10/23 16:31 AB [id number]) Physical Therapy Current Condition Current Condition Evaluation Date 09/10/23 Treatment Diagnosis Afib; gait abnormalities Onset Date 09/08/23 M3 PT-IP Subjective Start: 09/10/23 16:09 Freq: NEEDED Status: Active Protocol: Document 09/10/23 16:09 [facility] (Rec: 09/10/23 16:31 AB [id number]) Subjective Physical Therapy Visit Type Type Initial Evaluation Visit Start Time 15:27 Visit Stop Time 15:59 Total Visit Minutes 32 Physical Therapy Visit Comments Patient Comments Pt presents semi supine in bed and is agreeable to PT evaluation. Therapy Pain Assessment Pain When Pain Assessed At Rest Pain Present Pain Present Denied Pain M4 PT-IP Mobility and Gait Start: 09/10/23 16:09 Freq: NEEDED Status: Active Protocol: Document 09/10/23 16:09 [facility] (Rec: 09/10/23 16:31 AB [id number]) PT-Bed Mobility Assessment Rolling Type of Rolling Bilateral Level of Assist Standby Assistance Supine to Sit Supine to Sit Standby Assistance,Bedrails Sit to Supine Sit to Supine Standby Assistance Scooting Scooting to Edge of Bed Standby Assistance PT-Transfer Assessment Sit to and From Stand Sit to and from Stand Standby Assistance,Use of Upper Extremities Equipment Transfer Assistive Device Gait Belt Transfers Transfer Destination Bed,Chair Transfer Technique ambulated Transfer Ability Level of Assist Standby Assistance,Use of Upper Extremities Comments Mobility Comments The pt was able to perform all functional mobility with SBA and without AD, including ambulating 250ft and performing stairs. He requires use of BUEs to perform STS and transfers. Additonal fall risk and balance assessments were performed as below. He denied any symptoms thoughout session. Gait Assessment Gait Gait Assistance Required: Standby Assistance Distance (Feet) 250 Assistive Devices Assistive Device Gait Belt Gait Deviations General Gait Pattern Decreased Stride Length, Decreased Feet Clearance Factors Limiting Gait Function Factors Limiting Gait Function Decreased Activity Tolerance, Decreased Strength Comments Gait Comments The pt was able to ambulate 250ft without an AD, with SBA from PT. While ambulating he demonstrates intermittent veering to one side or the other side, and slight imbalance when performing turns. However, he is able to correct independently. Stair Climbing Assessment Evaluation Level of Assist On Stairs Standby Assistance Devices Stair Climbing Assistive Devices Left Railing,Right Railing Technique/Endurance Stair Climbing Direction Ascend and Descend Stair Climbing Technique Step Over Step,Step to Step Number of Steps Climbed 3 Query Text: Stair Climbing Set # Repetitions (reps) 5 Comments Stair Climbing Comments Pt performs 3 sets of 3 steps with bilateral hand rails and reciprocal pattern. He also performs 2 sets of 3 steps without hand rails and step to step pattern. PT-Balance Assessment Sitting Balance and Reactions Static Sitting Balance Ability Normal Dynamic Sitting Balance Ability Normal Standing Balance and Reactions Static Standing Balance Ability Good Dynamic Standing Balance Ability Fair Device Used none Balance Tests Pimentel Balance Test Score 45/56 Query Text:Score Functional Assessments Functional Tests 5 Times Sit to Stand 12.93 sec with BUE M5 PT-IP Objective Assessments Start: 09/10/23 16:09 Freq: NEEDED Status: Active Protocol: Document 09/10/23 16:09 [facility] (Rec: 09/10/23 16:31 AB [id number]) Orientation Orientation/Cognition Level of Alertness Alert Orientation Name,Age,Birthday,Month,Date, Year,Day of Week,Place, Situation Language Function Ability No Deficits Noted Safety Awareness Decreased Safety Awareness Memory Description No Deficits Noted Gross Range of Motion Upper Extremity ROM Assessment Within Functional Limits Lower Extremity ROM Assessment Within Functional Limits Strength Upper Extremity Strength Assessment Within Functional Limits Lower Extremity Strength Assessment Within Functional Limits Comments Strength Comments Gross LE strength 4/5 M6 PT-IP Treatment Start: 09/10/23 16:09 Freq: NEEDED Status: Active Protocol: Document 09/10/23 16:09 AB (Rec: 09/10/23 16:31 AB [id number]) Physical Therapy Treatment Education Education Provided Safety Brace Education Patient M7 PT-IP Assessment and Plan Start: 09/10/23 16:09 Freq: NEEDED Status: Active Protocol: Document 09/10/23 16:09 AB (Rec: 09/10/23 16:31 AB [id number]) PT Summary Assessment and Plan Potential Rehabilitation Potential Good Status of Condition at Evaluation Stable Summary Impairments Strength,Balance,Gait,Activity Tolerance Assessment Summary Jimmy Ferraro is an 83 year old male patient admitted for Afib and gait abnormalities. The pt is currently able to perform all functional mobility with SBA, however shows some impairments including weakness and imbalance which may increase his risk for falls when ambulating. His Pimentel Balance score is 45/56 and 5xSTS with BUEs was completed in 12.93 seconds, which show he is at an increased risk for falls. The pt does not appear to be very aware of these impairments and how they can lead to a fall, therefore PT provided this education. Based on his current level of function PT recommends discharge to home and a referral to outpatient PT to decrease his risk for falls. The pt would benefit from continued skilled PT for continued assessment regarding his imbalance/instability and to improve to his highest level of function. Goals Bed Mobility Goal Independent Transfer Goal Independent Gait Goal Independent Gait Distance 500 Other Goals Pt to ascend/descend 8 steps with 1 hand rail independently to show improving strength. Pt to ambulate 500ft with LRAD or no AD to show improving balance. Days to Meet Goals 10 Frequency of Treatment Frequency Of Treatment Once a Day Treatment Plan Physical Therapy Treatment Plan Gait Training,Therapeutic Exercise,Balance Retraining, Neuromuscular Re-ed Other Recommendations and Next Treatment Gait training and dynamic Focus balance training Weight Bearing Status Weight Bearing Status Weight Bear as Tolerated Recommendations To Nursing Amount of Assist Needed Standby Assistance Discharge Recommendations PT Discharge Recommendations Home,Outpatient PT Transportation Needs at Discharge Private Vehicle
[2023-09-10] MEDS: INSULIN NPH 100 UNIT/ML 10ML VIAL 15 UNIT SUBCUT (17:29)
[2023-09-10] MEDS: DOCUSATE 100 MG CAPSULE PO (20:59)
[2023-09-10] MEDS: SENNOSIDES 8.6 MG TABLET 17.2 MG PO (20:59)
[2023-09-11] VITALS (10 sets, daily range): BP systolic 122–152; BP diastolic 56–72; PULSE 64–84; RESP 18–19; TEMP 36.2–36.6; O2SAT 95–98
[2023-09-11 06:02] LABS: BUN Creatinine Ratio 20.3 (6-22); Blood Urea Nitrogen 13 mg/dL (9-20); Calcium 9.1 mg/dL (8.4-10.2); Carbon Dioxide 34 mmol/L (22-32); Chloride 100 mmol/L (98-107); Estimated Glomerular Filt Rate > 60 mL/min (>60); Glucose 80 mg/dL (80-110); HEMOLYSIS < 15 (0-50); Magnesium 1.9 mg/dL (1.6-2.3); Sodium 138 mmol/L (137-145)
[2023-09-11 06:46] LABS: Potassium 2.7 mmol/L (3.4-5.1)
[2023-09-11] MEDS: POTASSIUM CHLORIDE 20 MEQ TAB 40 MEQ PO ×2 (08:12→16:48)
[2023-09-11] MEDS: POTASSIUM CHLORIDE IN WATER 10 MEQ/100 ML PIGGYBACK 100 MEQ IV ×5 (08:12→12:50)
[2023-09-11] MEDS: MAGNESIUM OXIDE 400 MG TABLET PO ×2 (08:17→20:19)
[2023-09-11] MEDS: METFORMIN HCL 500 MG TABLET 1000 MG PO ×2 (08:18→20:20)
[2023-09-11] MEDS: ATORVASTATIN 20 MG TABLET 10 MG PO (08:18)
[2023-09-11] MEDS: APIXABAN 5 MG TABLET PO ×2 (08:18→20:18)
[2023-09-11] MEDS: DOCUSATE 100 MG CAPSULE PO ×2 (08:18→20:18)
[2023-09-11] MEDS: METOPROLOL ER 50 MG TABLET 100 MG PO ×2 (08:19→20:18)
[2023-09-11] MEDS: ASPIRIN EC 81 MG TABLET PO (08:19)
[2023-09-11] MEDS: lisinopriL 20 MG TABLET 40 MG PO (08:19)
[2023-09-11] MEDS: CHOLECALCIFEROL (VITAMIN D3) 5,000 UNIT TABLET 5000 UNIT PO (08:21)
--- NOTE | 2023-09-11 08:49 | P.PN_ITS ---
Subjective Subjective Date Patient Seen: 09/11/23 Time Patient Seen: 07:00 Interval history: Patient is sitting up complaining little bit of burning in his arm where the IV potassium is going in Was up yesterday actually felt tremendously better on his feet than he expected Does admit to some loose stool, maybe that is a source of his potassium lost Potassium this morning is still low in fact less than yesterday despite the vigorous replacement. Magnesium is now normal No further issues with palpitations chest pain etcetera. Set up for cardiac stress testing today Exam Vital Signs (past 8 hours): - 09/11/23 05:41 09/11/23 07:56 Temperature 97.9 F Pulse Rate 68 Respiratory Rate 19 Blood Pressure 122/62 Pulse Oximetry 98 97 Oxygen Delivery Method Room Air Oxygen Flow Rate 0 Oxygen Delivery Method Room Air Oxygen Flow Rate 0 Objective Labs 09/10/23 05:00 09/11/23 05:10 Labs: Laboratory Results - last 24 hr 09/11/23 05:10 Sodium 138 Potassium 2.7 L* Chloride 100 Carbon Dioxide 34 H BUN 13 Creatinine 0.64 L Estimated GFR > 60 BUN/Creatinine Ratio 20.3 Glucose 80 D Calcium 9.1 Magnesium 1.9 [facility] Medical History (Updated 09/10/23 @ 10:26 by Kev Ward MD) Atrial fibrillation Hutson palsy Gilbert syndrome Esophageal ring Type 2 diabetes mellitus with hyperglycemia (12/04/15) 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 (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/15) Type 2 diabetes mellitus with other circulatory complication (08/07/15) History of heart bypass surgery (08/07/15) Essential hypertension (08/07/15) Coronary artery disease involving [place] coronary artery of [place] heart without angina pectoris (08/07/15) Mixed hyperlipidemia History of adenomatous polyp of colon (07/10/11) Surgical History 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) Status post cholecystectomy Status post appendectomy Family History Father Family history of leukemia Mother Family history of [place] (myocardial infarction) Social History marital status: unmarried,single number of children: 0 household members: none lives independently: Yes caregiver/support person: No housing: house pets and animals: No education level: other occupational status: other 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 Hypokalemia/hypomagnesemia-continue to replace parenterally as well as orally. Magnesium fortunately back to normal. I am not sure where he is losing his potassium maybe GI source of loss. Certainly keep him off any thiazide diuretics. Plan to recheck this afternoon then again in the morning 2. AFib-patient seems to be rate controlled at this point. He is chronically anticoagulated now with a direct oral anticoagulant. 3. Cardiac-patient with minimal elevation of his troponin as he presented in rapid AFib. Myocardial perfusion imaging later today. Patient asymptomatic 4. Diabetes-improve numbers if anything he is on the low side this morning. Continue to monitor and if need be adjust insulin dosing. Hopefully we can prove there is no significant cardiac ischemia we can correct his electrolytes and he can be discharged home in the next 24 hours. We seem to have controlled as diabetes/blood sugars as well as his atrial fibrillation at this time. Quality VTE Deep Vein Thrombosis/Pulmonary Embolism Present on Admission: No
--- NOTE | 2023-09-11 08:58 | PT.IPTN ---
Physical Therapy Treatment Note M2 PT-IP Current Condition Start: 09/10/23 16:09 Freq: NEEDED Status: Active Protocol: Document 09/10/23 16:09 AB (Rec: 09/10/23 16:31 AB [id number]) Physical Therapy Current Condition Current Condition Evaluation Date 09/10/23 Treatment Diagnosis Afib; gait abnormalities Onset Date 09/08/23 M3 PT-IP Subjective Start: 09/10/23 16:09 Freq: NEEDED Status: Active Protocol: Document 09/11/23 10:17 TS (Rec: 09/11/23 10:35 TS [id number]) Subjective Physical Therapy Visit Type Type Treatment Note Visit Start Time 08:58 Visit Stop Time 09:19 Total Visit Minutes 21 Number of PERSONAL CARE AIDE Visits 1 Physical Therapy Visit Comments Patient Comments Pt found resting in bed, reports having stress test later this morning, agreeable to PT. During mobility pt reports having a fear of falling. Therapy Pain Assessment Pain When Pain Assessed At Rest Pain Present Pain Present Denied Pain M4 PT-IP Mobility and Gait Start: 09/10/23 16:09 Freq: NEEDED Status: Active Protocol: Document 09/11/23 10:17 TS (Rec: 09/11/23 10:35 TS [id number]) PT-Bed Mobility Assessment Rolling Type of Rolling Roll to Left Level of Assist Standby Assistance Supine to Sit Supine to Sit Standby Assistance,Bedrails Sit to Supine Sit to Supine Standby Assistance Scooting Scooting to Edge of Bed Standby Assistance Scooting Up and Down in Bed Standby Assistance PT-Transfer Assessment Sit to and From Stand Sit to and from Stand Standby Assistance,Use of Upper Extremities Equipment Transfer Assistive Device Gait Belt Comments Mobility Comments Supine to sit SBA with BUE support and HOB elevated, pt required extra effort to upright trunk. Sit to stand with no AD SBA, pt is unsteady coming into standing. He ambulated ~250'SBA with no AD, slightly unsteady with WBOS. He performed steps x9 SBA step over step with single rail support, had no buckling or LOB. Back in room pt performed SLS, L ~10 without support, RLE ~2 without support, tandem stance ~20 without support, and NBOS eyes closed ~30. Pt was left back in bed, all needs met, awaiting stress test. Gait Assessment Gait Gait Assistance Required: Standby Assistance Distance (Feet) 250 Assistive Devices Assistive Device Gait Belt Gait Deviations General Gait Pattern Decreased Stride Length, Decreased Feet Clearance Factors Limiting Gait Function Factors Limiting Gait Function Decreased Activity Tolerance, Decreased Strength Comments Gait Comments See mobility comments. Stair Climbing Assessment Evaluation Level of Assist On Stairs Standby Assistance Devices Stair Climbing Assistive Devices Right Railing Technique/Endurance Stair Climbing Direction Ascend and Descend Stair Climbing Technique Step Over Step,Step to Step Number of Steps Climbed 3 Stair Climbing Set # Repetitions (reps) 3 Comments Stair Climbing Comments See mobility comments. PT-Balance Assessment Sitting Balance and Reactions Static Sitting Balance Ability Normal Dynamic Sitting Balance Ability Normal Standing Balance and Reactions Static Standing Balance Ability Good Dynamic Standing Balance Ability Fair M5 PT-IP Objective Assessments Start: 09/10/23 16:09 Freq: NEEDED Status: Active Protocol: Document 09/10/23 16:09 AB (Rec: 09/10/23 16:31 AB [id number]) Orientation Orientation/Cognition Level of Alertness Alert Orientation Name,Age,Birthday,Month,Date, Year,Day of Week,Place, Situation Language Function Ability No Deficits Noted Safety Awareness Decreased Safety Awareness Memory Description No Deficits Noted Gross Range of Motion Upper Extremity ROM Assessment Within Functional Limits Lower Extremity ROM Assessment Within Functional Limits Strength Upper Extremity Strength Assessment Within Functional Limits Lower Extremity Strength Assessment Within Functional Limits Comments Strength Comments Gross LE strength 4/5 M6 PT-IP Treatment Start: 09/10/23 16:09 Freq: NEEDED Status: Active Protocol: Document 09/11/23 10:17 TS (Rec: 09/11/23 10:35 TS [id number]) Physical Therapy Treatment Education Education Provided Safety M7 PT-IP Assessment and Plan Start: 09/10/23 16:09 Freq: NEEDED Status: Active Protocol: Document 09/11/23 10:17 TS (Rec: 09/11/23 10:35 TS [id number]) PT Summary Assessment and Plan Potential Rehabilitation Potential Good Summary Impairments Strength,Balance,Gait,Activity Tolerance Progress Towards Goals Progressing Toward Goals Assessment Summary Jimmy continues to do well with his mobility. He continues to be SBA for all bed mobility and sit to stands with no AD. He continues to ambulate ~250' SBA with no AD. He is slightly unsteady with a WBOS gait. He performed stairs x9 SBA with single rail , had no buckling or LOB. PT continues to recommend home and outpatient PT for dynamic balance training. Goals Bed Mobility Goal Independent Transfer Goal Independent Gait Goal Independent Gait Distance 500 Other Goals Pt to ascend/descend 8 steps with 1 hand rail independently to show improving strength. Pt to ambulate 500ft with LRAD or no AD to show improving balance. Days to Meet Goals 10 Frequency of Treatment Frequency Of Treatment Once a Day Treatment Plan Physical Therapy Treatment Plan Gait Training,Therapeutic Exercise,Balance Retraining, Neuromuscular Re-ed Other Recommendations and Next Treatment Gait training and dynamic Focus balance training Weight Bearing Status Weight Bearing Status Weight Bear as Tolerated Recommendations To Nursing Amount of Assist Needed Standby Assistance Discharge Recommendations PT Discharge Recommendations Home,Outpatient PT Other Discharge Recommendations Could benefit from the use of SPC. Transportation Needs at Discharge Private Vehicle
--- NOTE | 2023-09-11 09:25 | PC.NURSE ---
Day shift: Pt off unit for stress test at approx 0925.
--- NOTE | 2023-09-11 10:39 | OT.IPNOTE ---
Attempted to see pt for OT and pt states feels that his balance is at his baseline and not wanting to try use of a cane at this time. In addition pt not open to getting a shower chair as states can use the built in seat in the shower. Pt not wanting to shower as may be going home today. NO charge.
[2023-09-11] MEDS: INSULIN LISPRO 100 UNIT/ML 3ML VIAL SUBCUT ×3 (11:19→20:24)
[2023-09-11 13:30] LABS: HEMOLYSIS < 15 (0-50)
--- NOTE | 2023-09-11 13:56 | CM.DANOTE ---
DCP Assessment Note Patient is a 83yo M here following some chest pain/afib under the care of Dr. Ward PCP Dr. Santos Simon and self pay DELIVERY RECRUITER reviewed EMR. PT/OT rec home at this time. Per santos note, pending stress tests results may d/c home today. DELIVERY RECRUITER entered room and introduced self and role. Patient reports living alone in [place] and reports having no one for an emergency contact. Patient reports he is indep/drives. Has a cane and grab bars. Patient droves self here and plans to drive self home. patient interested in a optical lens manufacturing tech for the hard stuff. DELIVERY RECRUITER provided patient with resources booklet with caregiver/optical lens manufacturing tech resource information. Patient reports no other needs at this time. Plan: home when medically stable. Transport with self. CM team will continue to follow as needed FREDDY Rivera Discharge Planning/Care Management CM Discharge Assessment Start: 09/11/23 13:55 Freq: Status: Active Protocol: Document 09/11/23 13:55 (Rec: 09/11/23 13:56 [id number]) Discharge Planning Assessment Assigned Reweaver FREDDY Boothe DPOA/Assigned Designee Name None Advance Directives? No History Provided By Patient,Medical Record Prior Living Arrangements House Household Members none Type of transporation used prior to Drives own vehicle admit Independent with ADL's Yes Is patient alert and oriented? Yes DME Already Rented / Owned Cane Comment has cane reports doesn't use it Discharge Plan Home Transportation Arrangement self transport Referrals Initiated None needed Whiteboard Updated in Patient Room with Yes name and ext. # of Reweaver Review Status In Process Next Review Type Continued Stay Review
--- NOTE | 2023-09-11 14:15 | OT.IPNOTE ---
Pt states not wanting to get up as has been having diarrhea today and too tired.
[2023-09-11] MEDS: MAGNESIUM HYDROXIDE 30 ML UDC PO (15:19)
[2023-09-11] MEDS: BISACODYL 5 MG TABLET 10 MG PO (15:19)
[2023-09-11] MEDS: SENNOSIDES 8.6 MG TABLET 17.2 MG PO (20:18)
[2023-09-11] MEDS: GLIMEPIRIDE 2 MG TABLET 1 MG PO (20:19)
[2023-09-11] MEDS: SODIUM CHLORIDE 0.9% FLUSH 10 ML IV (20:35)
[2023-09-12 00:35] VITALS: BP 140/59; PULSE 66; RESP 16; TEMP 36; O2SAT 96
[2023-09-12 04:10] VITALS: BP 161/71; PULSE 68; RESP 16; TEMP 36.6; O2SAT 95
[2023-09-12 05:38] LABS: Blood Urea Nitrogen 14 mg/dL (9-20); Carbon Dioxide 31 mmol/L (22-32); Chloride 100 mmol/L (98-107); Estimated Glomerular Filt Rate > 60 mL/min (>60); Glucose 206 mg/dL (80-110); HEMOLYSIS < 15 (0-50); Magnesium 1.8 mg/dL (1.6-2.3); Potassium 3.8 mmol/L (3.4-5.1); Sodium 136 mmol/L (137-145)
[2023-09-12 07:00] VITALS: BP 162/68; PULSE 64; RESP 18; TEMP 36.4; O2SAT 96
[2023-09-12] MEDS: INSULIN LISPRO 100 UNIT/ML 3ML VIAL SUBCUT ×2 (07:55→11:44)
[2023-09-12] MEDS: CHOLECALCIFEROL (VITAMIN D3) 5,000 UNIT TABLET 5000 UNIT PO (09:16)
[2023-09-12] MEDS: DOCUSATE 100 MG CAPSULE PO (09:16)
[2023-09-12] MEDS: GLIMEPIRIDE 2 MG TABLET 1 MG PO (09:16)
[2023-09-12] MEDS: APIXABAN 5 MG TABLET PO (09:16)
[2023-09-12] MEDS: lisinopriL 20 MG TABLET 40 MG PO (09:16)
[2023-09-12] MEDS: METOPROLOL ER 50 MG TABLET 100 MG PO (09:16)
[2023-09-12] MEDS: ATORVASTATIN 20 MG TABLET 10 MG PO (09:17)
[2023-09-12] MEDS: METFORMIN HCL 500 MG TABLET 1000 MG PO (09:17)
[2023-09-12] MEDS: ASPIRIN EC 81 MG TABLET PO (09:17)
[2023-09-12] MEDS: POTASSIUM CHLORIDE 20 MEQ TAB 40 MEQ PO (09:17)
[2023-09-12] MEDS: MAGNESIUM OXIDE 400 MG TABLET PO (09:17)
[2023-09-12] MEDS: SODIUM CHLORIDE 0.9% FLUSH 10 ML IV (09:18)
[2023-09-12 09:33] VITALS: O2SAT 97
[2023-09-12 09:55] VITALS: PULSE 65
--- NOTE | 2023-09-12 11:29 | PT.IPTN ---
Current Diagnoses Unspecified atrial fibrillation (09/10/23) Physical Therapy Treatment Note M2 PT-IP Current Condition Start: 09/10/23 16:09 Freq: NEEDED Status: Active Protocol: Document 09/10/23 16:09 AB (Rec: 09/10/23 16:31 AB [id number]) Physical Therapy Current Condition Current Condition Evaluation Date 09/10/23 Treatment Diagnosis Afib; gait abnormalities Onset Date 09/08/23 M3 PT-IP Subjective Start: 09/10/23 16:09 Freq: NEEDED Status: Active Protocol: Document 09/12/23 11:40 TS (Rec: 09/12/23 11:55 TS [id number]) Subjective Physical Therapy Visit Type Type Treatment Note Visit Start Time 11:29 Visit Stop Time 11:39 Total Visit Minutes 10 Number of SUBSYSTEMS ENGINEER Visits 2 Physical Therapy Visit Comments Patient Comments Pt found resting in bed, agreeable to PT. M4 PT-IP Mobility and Gait Start: 09/10/23 16:09 Freq: NEEDED Status: Active Protocol: Document 09/12/23 11:40 TS (Rec: 09/12/23 11:55 TS [id number]) PT-Bed Mobility Assessment Rolling Level of Assist Standby Assistance Supine to Sit Supine to Sit Standby Assistance Sit to Supine Sit to Supine Standby Assistance Scooting Scooting to Edge of Bed Standby Assistance Scooting Up and Down in Bed Standby Assistance PT-Transfer Assessment Sit to and From Stand Sit to and from Stand Standby Assistance,Use of Upper Extremities Equipment Transfer Assistive Device Gait Belt Comments Mobility Comments Supine to sit SBA with HOB elevated and BUE support. Sit to stand with FWW SBA with no AD, pt has good balance with no retroleaning. He ambulated ~250' SBA with no AD, had no buckling or LOB. He performed steps x6 SBA with B handrails, reported some SOB and requested back to room. Pt was left back in bed all needs met. Gait Assessment Gait Gait Assistance Required: Standby Assistance Distance (Feet) 250 Assistive Devices Assistive Device Gait Belt Gait Deviations General Gait Pattern Decreased Stride Length, Decreased Feet Clearance Factors Limiting Gait Function Factors Limiting Gait Function Decreased Activity Tolerance, Decreased Strength Comments Gait Comments See mobility comments. Stair Climbing Assessment Evaluation Level of Assist On Stairs Standby Assistance Devices Stair Climbing Assistive Devices Left Railing,Right Railing Technique/Endurance Stair Climbing Direction Ascend and Descend Stair Climbing Technique Step Over Step Number of Steps Climbed 6 Comments Stair Climbing Comments See mobility comments. PT-Balance Assessment Sitting Balance and Reactions Static Sitting Balance Ability Normal Dynamic Sitting Balance Ability Normal Standing Balance and Reactions Static Standing Balance Ability Good Dynamic Standing Balance Ability Fair Device Used none M5 PT-IP Objective Assessments Start: 09/10/23 16:09 Freq: NEEDED Status: Active Protocol: Document 09/10/23 16:09 AB (Rec: 09/10/23 16:31 AB [id number]) Orientation Orientation/Cognition Level of Alertness Alert Orientation Name,Age,Birthday,Month,Date, Year,Day of Week,Place, Situation Language Function Ability No Deficits Noted Safety Awareness Decreased Safety Awareness Memory Description No Deficits Noted Gross Range of Motion Upper Extremity ROM Assessment Within Functional Limits Lower Extremity ROM Assessment Within Functional Limits Strength Upper Extremity Strength Assessment Within Functional Limits Lower Extremity Strength Assessment Within Functional Limits Comments Strength Comments Gross LE strength 4/5 M6 PT-IP Treatment Start: 09/10/23 16:09 Freq: NEEDED Status: Active Protocol: Document 09/12/23 11:40 TS (Rec: 09/12/23 11:55 TS [id number]) Physical Therapy Treatment Education Education Provided Safety M7 PT-IP Assessment and Plan Start: 09/10/23 16:09 Freq: NEEDED Status: Active Protocol: Document 09/12/23 11:40 TS (Rec: 09/12/23 11:55 TS [id number]) PT Summary Assessment and Plan Potential Rehabilitation Potential Good Summary Impairments Strength,Balance,Gait,Activity Tolerance Progress Towards Goals Progressing Toward Goals Assessment Summary Jimmy continues to do well with his mobility. He continues to perform all bed mobility SBA and sit to stand SBA with no AD. He ambulated ~ 250'SBA with no AD, had no buckling or LOB. He performed stairs x6 step over step, became SOB and requested back to room. PT continues to recommend home and outpatient PT. Goals Bed Mobility Goal Independent Transfer Goal Independent Gait Goal Independent Gait Distance 500 Other Goals Pt to ascend/descend 8 steps with 1 hand rail independently to show improving strength. Pt to ambulate 500ft with LRAD or no AD to show improving balance. Days to Meet Goals 10 Frequency of Treatment Frequency Of Treatment Once a Day Treatment Plan Physical Therapy Treatment Plan Gait Training,Therapeutic Exercise,Balance Retraining, Neuromuscular Re-ed Other Recommendations and Next Treatment Gait training and dynamic Focus balance training Weight Bearing Status Weight Bearing Status Weight Bear as Tolerated Recommendations To Nursing Amount of Assist Needed Standby Assistance Discharge Recommendations PT Discharge Recommendations Home,Outpatient PT Other Discharge Recommendations Could benefit from the use of SPC. Transportation Needs at Discharge Private Vehicle
--- NOTE | 2023-09-12 11:40 | P.DS_ITS ---
History of Present Illness History of Present Illness Date Patient Seen: 09/12/23 Time Patient Seen: 11:40 Chief complaint: heart problems T-7 Discharge Providers Provider Date of admission: 09/10/23 12:15 Discharge Date: 09/12/23 Primary care physician: Kev Ward MD Consults: 09/10/23 12:15 Consult to Occupational Therapy Evaluate & Treat Comment: Physician Instructions: Evaluate and treat Consult to Physical Therapy Evaluate & Treat Comment: Physician Instructions: Evaluate and Treat Discharge provider: Michelle Chew MD Summary Hospital Course Discharge Diagnosis: 1. Hypomagnesemia 2. Hypokalemia 3. Weakness 4. New onset atrial fibrillation 5. Type 2 diabetes on insulin 6. Hypertension 7. Hyperlipidemia 8. Elevated troponin, echo shows no changes and no wall motion abnormality and stress Mibi shows no reversible ischemia 9. History of coronary artery disease without acute symptoms Hospital Course: Patient was admitted to the hospital with severe weakness and hypokalemia, hypomagnesemia and new onset AFib. In retrospect AFib have been present since January. Patient was started on anticoagulation. He had a minimally elevated troponin and ended up undergoing an echo which showed no wall motion abnormalities and unchanged from previous echo and then had a stress Mibi which showed no evidence of reversible ischemia. It was thought that his thiazide diuretic was contributing to his electrolyte abnormalities and this was discontinued and the metoprolol and lisinopril was increased. Patient was discharged home on hospital day 3. In improved and stable condition. Will be discharged home on lisinopril 40 mg daily, metoprolol 100 mg twice daily, no chlorthalidone, Eliquis 5 mg twice daily, same diabetic medications including glimepiride, metformin, insulin and simvastatin 20 mg daily. He will also be discharged on magnesium 400 mg twice daily and potassium 20 mEq daily. He will have labs next week and follow-up with his PCP Dr. Ward Status at Discharge Cognitive/behavioral status at discharge: at baseline, oriented Functional status at discharge: independent ambulation Overall status at discharge: patient is progressing back to baseline Exam Vital Signs (past 8 hours): - 09/12/23 04:10 09/12/23 07:00 09/12/23 09:33 Temperature 97.8 F 97.6 F Pulse Rate 68 64 Respiratory Rate 16 18 Blood Pressure 161/71 H 162/68 H Pulse Oximetry 95 96 97 Oxygen Delivery Method Room Air Oxygen Flow Rate 0 Oxygen Delivery Method Room Air Oxygen Flow Rate 0 Narrative Exam Narrative: Patient is afebrile and vital signs stable other than slightly elevated blood pressure 160/70. O2 sats 97% on room air Patient is alert and oriented no apparent distress Patient ambulating without any difficulty. HEENT is unremarkable Neck: Supple Chest: Clear to auscultation with decreased breath sounds bibasilar but no wheezes rhonchi or crackles Cor: Irregularly irregular rhythm with a well-controlled rate and distant S1-S2 Abdomen: Positive bowel sounds x4, obese Extremities trace lower extremity edema, pulses intact Neurologic exam nonfocal Objective Labs 09/10/23 05:00 09/12/23 05:00 Labs: Laboratory Results - last 24 hr 09/11/23 09/12/23 13:05 05:00 Sodium 136 L Potassium 4.0 D 3.8 Chloride 100 Carbon Dioxide 31 BUN 14 Creatinine 0.61 L Estimated GFR > 60 BUN/Creatinine Ratio 23.0 H Glucose 206 H D Calcium 9.0 Magnesium 1.8 PFSH Medical History (Updated 09/10/23 @ 10:26 by Kev Ward MD) Atrial fibrillation Hutson palsy Gilbert syndrome Esophageal ring Type 2 diabetes mellitus with hyperglycemia (12/04/15) 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 (09/25/15) Type 2 diabetes mellitus with other circulatory complication (08/07/15) History of heart bypass surgery (08/07/15) Essential hypertension (08/07/15) Coronary artery disease involving [place] coronary artery of [place] heart without angina pectoris (08/07/15) Mixed hyperlipidemia History of adenomatous polyp of colon (07/10/11) Surgical History 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) Status post cholecystectomy Status post appendectomy Family History Father Family history of leukemia Mother Family history of GA (myocardial infarction) Social History marital status: unmarried,single number of children: 0 household members: none lives independently: Yes caregiver/support person: No housing: house pets and animals: No education level: other occupational status: other 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 Hypomagnesemia 2. Hypokalemia 3. Weakness 4. New onset atrial fibrillation 5. Type 2 diabetes on insulin 6. Hypertension 7. Hyperlipidemia 8. Elevated troponin, echo shows no changes and no wall motion abnormality and stress Mibi shows no reversible ischemia 9. History of coronary artery disease without acute symptoms Plan of Treatment: Patient discharged to home with labs next week and follow-up with PCP including BMP, magnesium and CBC New medications are magnesium 400 mg twice daily and potassium 20 mg twice daily. Metoprolol increased to 100 mg twice daily and lisinopril increased to 40 mg daily inpatient is sent in prescription for Eliquis 5 mg twice daily. Continue same other medications. [facility]. Discharge Plan Discharge Plan Patient Disposition: Home Discharge orders & Medications Prescriptions: New lisinopril 40 mg tablet 40 mg PO DAILY Qty: 30 3RF potassium chloride 20 mEq tablet extended release 20 meq PO BID Qty: 60 3RF Eliquis 5 mg Tablet 5 mg PO BID Qty: 60 3RF magnesium oxide 400 mg (241.3 mg magnesium) Tablet 400 mg PO BID Qty: 60 3RF metoprolol succinate 100 mg tablet extended release 24 hr 100 mg PO BID Qty: 60 3RF Continued cholecalciferol (vitamin D3) [Vitamin D3] 1,000 UNIT tablet 5,000 iu PO QDAY Qty: 0 metformin 1,000 mg tablet 1,000 mg PO BID Qty: 0 Rx Instructions: 180 TABS/3 MO glimepiride 1 mg tablet 1 mg PO BID simvastatin 20 mg tablet 20 mg PO DAILY aspirin 81 mg tablet,delayed release (DR/EC) 81 mg PO DAILY [place] Plus See Rx Instructions .ROUTE .COMPLEX Rx Instructions: 1 TAB PO DAILY Humulin R Regular U-100 Insuln 100 unit/mL solution See Rx Instructions SUBCUT QAC Rx Instructions: 2-3 doses SUBCUT before meals; If 2 doses 30 units Changed Humulin N NPH U-100 Insulin 100 unit/mL suspension 15 - 18 unit SUBCUT BID Qty: 10 4RF Rx Instructions: SUBCUT twice a day; Discontinued chlorthalidone 25 mg tablet 12.5 mg PO Q OTHER DAY Qty: 45 3RF lisinopril 20 mg tablet 20 mg PO DAILY metoprolol tartrate 50 mg tablet 50 mg PO BID Follow up/Referrals: Kev Ward MD [Primary Care Provider] - Discharge Health Status Multidrug resistant organism: No MDRO Diet/Activity/Treatments Diet: Diet as Tolerated and Carb-consistent/Diabetic Visit Report/Discharge Packet Stand Alone Forms: Patient Portal/API, Stroke Signs & Symptoms Discharge Data Primary Care Provider: Kev Ward Quality VTE Deep Vein Thrombosis/Pulmonary Embolism Present on Admission: No
--- NOTE | 2023-09-12 12:12 | CM.DPC ---
DCP Cont: Patient is discharging home today, was given resources by Sharon HAYES, yesterday for housekeepers. Notes indicate that patient is driving his self home. P: Patient is discharging home today, with no needs. Carmen Ramesh RN/Therapist Radiation
--- NOTE | 2023-09-12 13:10 | PC.NURSE ---
Day shift: Paperwork signed and all questions answered. Has all personal belongings. Left unit via WC at approx 1310. Taken out by TREVA Bardales. scripts sent electronic to Pt's pharmacy. Pt is driving himself home today. Encouraged to make f/u appointment with Dr Ward on Thursday.
== END 2023-09-12 13:13 | disposition home or self-care (01) | DRG 310 ==
LOC: ED 09-10 10:00 → AC 09-10 10:01
PROVIDERS: Emergency Medicine; Admitting Provider Internal Medicine; Emergency Provider Emergency Medicine; Family Provider Internal Medicine; PCP Internal Medicine; Referring Provider Emergency Medicine; Visit Provider Internal Medicine
DX: I48.91 Unspecified atrial fibrillation (principal); E83.42 Hypomagnesemia; I25.10 Atherosclerotic heart disease of native coronary artery without angina pectoris; E11.65 Type 2 diabetes mellitus with hyperglycemia; E87.6 Hypokalemia; I10 Essential (primary) hypertension; R79.89 Other specified abnormal findings of blood chemistry; E78.5 Hyperlipidemia, unspecified; Z87.891 Personal history of nicotine dependence; Z79.4 Long term (current) use of insulin; Z79.84 Long term (current) use of oral hypoglycemic drugs
CPT/HCPCS: 36415; 36569; 71045; 78452; 80048; 80053; 81003; 81015; 82272; 82550; 82962; 83690; 83735; 83880; 84132; 84484; 85025; 85610; 85730; 93005; 93010; 93017; 93306; 96365; 96366; 96367; 96368; 96372; 96375; 96376; 97116; 97162; 97166; 97530; 99223; 99232; 99284; 99291; G0378; A9502; J1642; J1644; J1815; J2785; J3475

== ENCOUNTER → 2023-09-17 11:46 | Outpatient (CLI) | payer OTHER, SELFPAY ==
[2023-09-10 12:18] VITALS: BMI 29.5
[2023-09-17 12:55] LABS: Hemoglobin A1C% w Est Avg Glu 7.5 % (4.0-6.0)
[2023-09-17 13:09] LABS: HEMOLYSIS < 15 (0-50); Potassium 4.9 mmol/L (3.4-5.1)
[2023-09-17 13:10] LABS: BUN Creatinine Ratio 16.4 (6-22); Blood Urea Nitrogen 11 mg/dL (9-20); Calcium 9.9 mg/dL (8.4-10.2); Carbon Dioxide 30 mmol/L (22-32); Chloride 103 mmol/L (98-107); Estimated Glomerular Filt Rate > 60 mL/min (>60); Glucose 211 mg/dL (80-110); Sodium 138 mmol/L (137-145)
[2023-09-17 16:36] LABS: Creatinine Urine Random 92.8 mg/dL
[2023-09-17 16:44] LABS: Microalbumi Creatinin Ratio Ur 90.5 ug/mg CR (<30); Microalbumin Urine Random 8.4 mg/dL (0-1.6)
== END ==
PROVIDERS: Family Provider Internal Medicine; PCP Internal Medicine; Referring Provider Internal Medicine; Visit Provider Internal Medicine
DX: E11.65 Type 2 diabetes mellitus with hyperglycemia (principal); E87.6 Hypokalemia; I10 Essential (primary) hypertension; I48.91 Unspecified atrial fibrillation
CPT/HCPCS: 36415; 80048; 82043; 82570; 83036; 83735

== ENCOUNTER → 2023-11-04 09:35 | Outpatient (CLI) | payer OTHER, SELFPAY ==
[2023-09-10 12:18] VITALS: BMI 29.5
[2023-11-04 10:53] LABS: Hemoglobin A1C% w Est Avg Glu 8.1 % (4.0-6.0)
[2023-11-04 11:19] LABS: Alanine Aminotransferase 15 IU/L (<50); Albumin 3.6 g/dL (3.5-5.0); Albumin Globulin Ratio 1.5 (1.0-2.8); Alkaline Phosphatase 53 U/L (38-126); Bilirubin Total 1.1 mg/dL (0.2-1.3); Blood Urea Nitrogen 13 mg/dL (9-20); Calcium 9.4 mg/dL (8.4-10.2); Carbon Dioxide 26 mmol/L (22-32); Chloride 100 mmol/L (98-107); Estimated Glomerular Filt Rate > 60 mL/min (>60); Globulin 2.4 g/dL (1.7-4.1); Glucose 231 mg/dL (80-110); Magnesium 1.9 mg/dL (1.6-2.3); Potassium 4.7 mmol/L (3.4-5.1); Sodium 133 mmol/L (137-145)
[2023-11-06 15:52] LABS: Aspartate Aminotransferase 27 IU/L (17-59); HEMOLYSIS 69 (0-50)
== END ==
PROVIDERS: Family Provider Internal Medicine; PCP Internal Medicine; Referring Provider Internal Medicine; Visit Provider Internal Medicine
DX: E11.59 Type 2 diabetes mellitus with other circulatory complications (principal); E87.6 Hypokalemia; I48.19 Other persistent atrial fibrillation; I10 Essential (primary) hypertension; E78.2 Mixed hyperlipidemia
CPT/HCPCS: 36415; 80053; 83036; 83735

== ENCOUNTER → 2024-02-01 08:04 | Outpatient (CLI) | payer OTHER, SELFPAY ==
[2023-09-10 12:18] VITALS: BMI 29.5
[2024-02-01 09:03] LABS: Alanine Aminotransferase 12 IU/L (<50); Albumin 3.5 g/dL (3.5-5.0); Albumin Globulin Ratio 1.5 (1.0-2.8); Alkaline Phosphatase 76 U/L (38-126); Aspartate Aminotransferase 18 IU/L (17-59); BUN Creatinine Ratio 22.4 (6-22); Bilirubin Total 1.3 mg/dL (0.2-1.3); Blood Urea Nitrogen 13 mg/dL (9-20); Calcium 9.4 mg/dL (8.4-10.2); Carbon Dioxide 26 mmol/L (22-32); Chloride 104 mmol/L (98-107); Estimated Glomerular Filt Rate > 60 mL/min (>60); Globulin 2.4 g/dL (1.7-4.1); Glucose 232 mg/dL (80-110); HEMOLYSIS < 15 (0-50); Magnesium 1.8 mg/dL (1.6-2.3); Potassium 4.6 mmol/L (3.4-5.1); Sodium 135 mmol/L (137-145); Total Protein 5.9 g/dL (6.3-8.2)
== END ==
PROVIDERS: Family Provider Internal Medicine; PCP Internal Medicine; Referring Provider Internal Medicine; Visit Provider Internal Medicine
DX: E11.59 Type 2 diabetes mellitus with other circulatory complications (principal); I21.4 Non-ST elevation (NSTEMI) myocardial infarction; I48.91 Unspecified atrial fibrillation; E87.6 Hypokalemia; I10 Essential (primary) hypertension
CPT/HCPCS: 36415; 80053; 83036; 83735

== ENCOUNTER → 2024-05-06 07:40 | Outpatient (CLI) | payer OTHER, SELFPAY ==
[2023-09-10 12:18] VITALS: BMI 29.5
[2024-05-06 08:39] LABS: BUN Creatinine Ratio 24.6 (6-22); Blood Urea Nitrogen 17 mg/dL (9-20); Calcium 9.3 mg/dL (8.4-10.2); Carbon Dioxide 24 mmol/L (22-32); Chloride 105 mmol/L (98-107); Estimated Glomerular Filt Rate > 60 mL/min (>60); Glucose 131 mg/dL (80-110); HEMOLYSIS < 15 (0-50); Potassium 4.9 mmol/L (3.4-5.1); Sodium 137 mmol/L (137-145)
[2024-05-06 08:58] LABS: Hemoglobin A1C% w Est Avg Glu 8.6 % (4.0-6.0)
== END ==
LOC: LAB 07:41
PROVIDERS: Family Provider Internal Medicine; PCP Internal Medicine; Referring Provider Internal Medicine; Visit Provider Internal Medicine
DX: E11.65 Type 2 diabetes mellitus with hyperglycemia (principal)
CPT/HCPCS: 36415; 80048; 83036

== ENCOUNTER → 2024-08-05 07:53 | Outpatient (CLI) | payer OTHER, SELFPAY ==
[2023-09-10 12:18] VITALS: BMI 29.5
[2024-08-05 08:23] LABS: Add Manual Diff / Slide Review NO; Basophils Absolute Auto 100 /uL (0-100); Basophils Percent Auto 0.7 % (0-2); Eosinophils Absolute Auto 400 /uL (0-450); Eosinophils Percent Auto 4.7 % (2-4); Hematocrit 39.2 % (41-53); Hemoglobin 13.5 g/dL (13.5-17.5); Lymphocytes Absolute Auto 2000 /uL (1100-4500); Lymphocytes Percent Auto 25.5 % (25-40); Mean Corpuscular HGB Conc 34.4 % (30-36); Mean Corpuscular Hemoglobin 30.6 PG (26-34); Mean Corpuscular Volume 88.9 fL (80-100); Monocytes Absolute Auto 600 /uL (0-900); Monocytes Percent Auto 7.6 % (3-14); Neutrophils Absolute Auto 4700 /uL (1500-7000); Neutrophils Percent Auto 61.5 % (50-75); Platelet Count 214 X10^3/uL (150-400); Red Blood Cell Count 4.41 X10^6/uL (4.5-5.9); Red Cell Distribution Width 13.9 % (11.6-14.8); White Blood Cell Count 7.7 X10^3/uL (4.5-11.0)
[2024-08-05 08:35] LABS: Hemoglobin A1C% w Est Avg Glu 8.8 % (4.0-6.0)
[2024-08-05 08:55] LABS: Alanine Aminotransferase 17 IU/L (<50); Albumin Globulin Ratio 1.8 (1.0-2.8); Alkaline Phosphatase 75 U/L (38-126); Aspartate Aminotransferase 34 IU/L (17-59); BUN Creatinine Ratio 23.3 (6-22); Bilirubin Total 1.3 mg/dL (0.2-1.3); Blood Urea Nitrogen 17 mg/dL (9-20); Calcium 9.6 mg/dL (8.4-10.2); Carbon Dioxide 23 mmol/L (22-32); Chloride 103 mmol/L (98-107); Estimated Glomerular Filt Rate > 60 mL/min (>60); Globulin 2.2 g/dL (1.7-4.1); Glucose 270 mg/dL (80-110); HEMOLYSIS 15 (0-50); Potassium 5.2 mmol/L (3.4-5.1); Sodium 135 mmol/L (137-145); Total Protein 6.2 g/dL (6.3-8.2)
== END ==
PROVIDERS: Family Provider Internal Medicine; PCP Internal Medicine; Referring Provider Internal Medicine; Visit Provider Internal Medicine
DX: I10 Essential (primary) hypertension (principal); E11.65 Type 2 diabetes mellitus with hyperglycemia; E78.2 Mixed hyperlipidemia; I48.91 Unspecified atrial fibrillation
CPT/HCPCS: 36415; 80053; 83036; 85025

== ENCOUNTER → 2024-08-10 08:09 | Outpatient (CLI) | payer OTHER, SELFPAY ==
[2023-09-10 12:18] VITALS: BMI 29.5
--- NOTE | 2024-08-10 08:10 | DI.US.S_ITS ---
PROCEDURE: US CAROTID DOPPLER BI INDICATIONS: Atherosclerotic heart disease of [place] coronary artery with TECHNIQUE: Color and pulse Doppler interrogation was performed of both carotid systems, with image documentation and velocity measurements. COMPARISON: [facility], MR, MR STROKE, 02/17/2023, 14:38. FINDINGS: Stenosis calculations are based on SRU (Society of Radiologists in Ultrasound) criteria. The flow velocities and the arterial waveforms are normal within both carotid arterial systems. Atherosclerotic plaque is seen on both sides. The estimated degree of internal carotid artery stenosis is less than 50%. Antegrade flow is confirmed within both vertebral arteries. IMPRESSION: No hemodynamically significant stenosis is seen. Atherosclerotic plaque is noted bilaterally. Dictated by: Keny Ahmadi M.D. on 08/10/2024 at 10:05 Approved by: Keny Ahmadi M.D. on 08/10/2024 at 10:08
== END ==
LOC: US 08:09
PROVIDERS: Family Provider Internal Medicine; PCP Internal Medicine; Referring Provider Internal Medicine; Visit Provider Internal Medicine
DX: E11.59 Type 2 diabetes mellitus with other circulatory complications (principal); I25.10 Atherosclerotic heart disease of native coronary artery without angina pectoris; E78.2 Mixed hyperlipidemia; I65.23 Occlusion and stenosis of bilateral carotid arteries
CPT/HCPCS: 93880

== ENCOUNTER → 2024-11-03 08:09 | Outpatient (CLI) | payer OTHER, SELFPAY ==
[2023-09-10 12:18] VITALS: BMI 29.5
[2024-11-03 09:15] LABS: Hemoglobin A1C% w Est Avg Glu 8.9 % (4.0-6.0)
[2024-11-03 09:22] LABS: Alanine Aminotransferase 19 IU/L (<50); Albumin 3.7 g/dL (3.5-5.0); Albumin Globulin Ratio 1.5 (1.0-2.8); Alkaline Phosphatase 78 U/L (38-126); Aspartate Aminotransferase 25 IU/L (17-59); BUN Creatinine Ratio 16.3 (6-22); Bilirubin Total 1.5 mg/dL (0.2-1.3); Blood Urea Nitrogen 13 mg/dL (9-20); Calcium 9.9 mg/dL (8.4-10.2); Carbon Dioxide 28 mmol/L (22-32); Chloride 100 mmol/L (98-107); Estimated Glomerular Filt Rate > 60 mL/min (>60); Globulin 2.5 g/dL (1.7-4.1); Glucose 208 mg/dL (80-110); HEMOLYSIS < 15 (0-50); Potassium 4.7 mmol/L (3.4-5.1); Sodium 135 mmol/L (137-145); Total Protein 6.2 g/dL (6.3-8.2)
== END ==
PROVIDERS: Family Provider Internal Medicine; PCP Internal Medicine; Referring Provider Internal Medicine; Visit Provider Internal Medicine
DX: E11.59 Type 2 diabetes mellitus with other circulatory complications (principal); I10 Essential (primary) hypertension; E78.2 Mixed hyperlipidemia
CPT/HCPCS: 36415; 80053; 83036

== ENCOUNTER → 2025-01-05 07:54 | Outpatient (CLI) | payer OTHER, SELFPAY ==
[2023-09-10 12:18] VITALS: BMI 29.5
[2025-01-05 09:21] LABS: Cholesterol 126 mg/dL (140-199); HDL Cholesterol 33 mg/dL (40-60); LDL Cholesterol Calculated 71 mg/dL (<100); Triglycerides 111 mg/dL (35-150)
[2025-01-05 10:16] LABS: Creatinine Urine Random 80.64 mg/dL
[2025-01-05 10:20] LABS: Microalbumin Urine Random 0.9 mg/dL (0-1.6)
[2025-01-05 18:20] LABS: Alanine Aminotransferase 19 IU/L (<50); Albumin 3.9 g/dL (3.5-5.0); Albumin Globulin Ratio 1.8 (1.0-2.8); Alkaline Phosphatase 63 U/L (38-126); Aspartate Aminotransferase 31 IU/L (17-59); BUN Creatinine Ratio 21.9 (6-22); Bilirubin Total 1.3 mg/dL (0.2-1.3); Blood Urea Nitrogen 16 mg/dL (9-20); Calcium 9.4 mg/dL (8.4-10.2); Carbon Dioxide 24 mmol/L (22-32); Chloride 104 mmol/L (98-107); Estimated Glomerular Filt Rate > 60 mL/min (>60); Globulin 2.2 g/dL (1.7-4.1); Glucose 172 mg/dL (80-110); HEMOLYSIS 22 (0-50); Potassium 5.2 mmol/L (3.4-5.1); Sodium 137 mmol/L (137-145); Total Protein 6.1 g/dL (6.3-8.2)
[2025-01-05 18:51] LABS: TSH w/ Reflex to FT4 3.33 uIU/mL (0.47-4.68)
== END ==
PROVIDERS: Family Provider Internal Medicine; PCP Internal Medicine; Referring Provider Student in an Organized Health Care Education/Training Program; Visit Provider Student in an Organized Health Care Education/Training Program
DX: E11.9 Type 2 diabetes mellitus without complications (principal); Z79.4 Long term (current) use of insulin
CPT/HCPCS: 36415; 80053; 80061; 82043; 82570; 83036; 84443

== ENCOUNTER → 2025-03-14 08:42 | Outpatient (CLI) | payer OTHER, SELFPAY ==
[2023-09-10 12:18] VITALS: BMI 29.5
[2025-03-14 10:17] LABS: Hemoglobin A1C% w Est Avg Glu 7.8 % (4.0-6.0)
[2025-03-14 10:52] LABS: Alanine Aminotransferase 17 IU/L (<50); Albumin 3.6 g/dL (3.5-5.0); Albumin Globulin Ratio 1.9 (1.0-2.8); Alkaline Phosphatase 56 U/L (38-126); Aspartate Aminotransferase 24 IU/L (17-59); BUN Creatinine Ratio 22.6 (6-22); Bilirubin Total 0.9 mg/dL (0.2-1.3); Blood Urea Nitrogen 19 mg/dL (9-20); Calcium 9.6 mg/dL (8.4-10.2); Carbon Dioxide 21 mmol/L (22-32); Chloride 105 mmol/L (98-107); Estimated Glomerular Filt Rate > 60 mL/min (>60); Globulin 1.9 g/dL (1.7-4.1); Glucose 298 mg/dL (70-99); HEMOLYSIS < 15 (0-50); Potassium 4.7 mmol/L (3.4-5.1); Sodium 138 mmol/L (137-145); Total Protein 5.5 g/dL (6.3-8.2)
== END ==
PROVIDERS: Family Provider Internal Medicine; PCP Internal Medicine; Referring Provider Internal Medicine; Visit Provider Internal Medicine
DX: E11.65 Type 2 diabetes mellitus with hyperglycemia (principal); I10 Essential (primary) hypertension; E78.2 Mixed hyperlipidemia
CPT/HCPCS: 36415; 80053; 83036

== ENCOUNTER → 2025-06-14 08:01 | Outpatient (CLI) | payer OTHER, SELFPAY ==
[2023-09-10 12:18] VITALS: BMI 29.5
[2025-06-14 10:02] LABS: Blood Urea Nitrogen 16 mg/dL (9-20); Calcium 9.2 mg/dL (8.4-10.2); Carbon Dioxide 22 mmol/L (22-32); Chloride 106 mmol/L (98-107); Cholesterol 112 mg/dL (140-199); Estimated Glomerular Filt Rate > 60 mL/min (>60); Glucose 135 mg/dL (70-99); HDL Cholesterol 32 mg/dL (40-60); HEMOLYSIS < 15 (0-50); Potassium 4.8 mmol/L (3.4-5.1); Sodium 137 mmol/L (137-145); Triglycerides 124 mg/dL (35-150)
== END ==
PROVIDERS: Family Provider Internal Medicine; PCP Internal Medicine; Referring Provider Internal Medicine Cardiovascular Disease; Visit Provider Internal Medicine Cardiovascular Disease
DX: I25.10 Atherosclerotic heart disease of native coronary artery without angina pectoris (principal)
CPT/HCPCS: 36415; 80048; 80061

== ENCOUNTER → 2025-07-14 10:33 | Outpatient (CLI) | payer OTHER, SELFPAY ==
[2023-09-10 12:18] VITALS: BMI 29.5
== END ==
PROVIDERS: PCP Internal Medicine; Referring Provider Internal Medicine; Visit Provider Physician Assistant
DX: I87.2 Venous insufficiency (chronic) (peripheral) (principal); L97.822 Non-pressure chronic ulcer of other part of left lower leg with fat layer exposed; R60.0 Localized edema; E66.9 Obesity, unspecified; Z68.30 Body mass index [BMI] 30.0-30.9, adult; I11.0 Hypertensive heart disease with heart failure; I50.9 Heart failure, unspecified; I25.10 Atherosclerotic heart disease of native coronary artery without angina pectoris; E11.628 Type 2 diabetes mellitus with other skin complications; I25.2 Old myocardial infarction; I25.810 Atherosclerosis of coronary artery bypass graft(s) without angina pectoris; E11.51 Type 2 diabetes mellitus with diabetic peripheral angiopathy without gangrene; Z87.891 Personal history of nicotine dependence; E11.49 Type 2 diabetes mellitus with other diabetic neurological complication
CPT/HCPCS: 11042; 99204; 99214

== ENCOUNTER → 2025-07-21 09:23 | Outpatient (CLI) | payer OTHER, SELFPAY ==
[2023-09-10 12:18] VITALS: BMI 29.5
== END ==
LOC: WC 09:24
PROVIDERS: PCP Internal Medicine; Referring Provider Internal Medicine; Visit Provider Physician Assistant
DX: I87.2 Venous insufficiency (chronic) (peripheral) (principal); R60.0 Localized edema; E11.628 Type 2 diabetes mellitus with other skin complications; Z79.4 Long term (current) use of insulin; Z95.1 Presence of aortocoronary bypass graft; I48.91 Unspecified atrial fibrillation; I25.2 Old myocardial infarction; I11.0 Hypertensive heart disease with heart failure; I50.9 Heart failure, unspecified; Z88.8 Allergy status to other drugs, medicaments and biological substances; Z87.2 Personal history of diseases of the skin and subcutaneous tissue
CPT/HCPCS: 99213

== ENCOUNTER → 2025-07-28 15:43 | Outpatient (CLI) | payer OTHER, SELFPAY ==
[2023-09-10 12:18] VITALS: BMI 29.5
== END ==
LOC: WC 15:43
PROVIDERS: PCP Internal Medicine; Referring Provider Internal Medicine; Visit Provider Physician Assistant
DX: E11.622 Type 2 diabetes mellitus with other skin ulcer (principal); L97.821 Non-pressure chronic ulcer of other part of left lower leg limited to breakdown of skin; R60.0 Localized edema; I73.9 Peripheral vascular disease, unspecified
CPT/HCPCS: 97602; 99213

== ENCOUNTER → 2025-08-02 08:19 | Outpatient (CLI) | payer OTHER, SELFPAY ==
[2023-09-10 12:18] VITALS: BMI 29.5
--- NOTE | 2025-08-02 08:21 | DI.US.S_ITS ---
PROCEDURE: US ARTERIAL DUPLEX LE LT INDICATIONS: NON-HEALING ULCER LEFT LEG TECHNIQUE: Color and pulse Doppler interrogation was performed of the left lower extremity arterial system, with image documentation. COMPARISON: None. FINDINGS: Common femoral artery: 112 cm/sec, with triphasic flow. Deep femoral artery: 33 cm/sec, with monophasic flow. Proximal superficial femoral artery: 202 cm/sec, with triphasic flow. Mid superficial femoral artery: 139 cm/sec, with triphasic flow. Distal superficial femoral artery: 78 cm/sec, with triphasic flow. Popliteal artery: 95 cm/sec, with triphasic flow. Posterior tibial artery: 84 cm/sec, with monophasic flow. Anterior tibial artery/dorsalis pedis: 33 cm/sec, with monophasic flow. [place]field-scale imaging description: Mild plaque within the common femoral artery and profundus femoral artery with moderate plaque in the proximal to mid superficial femoral artery. Mild plaque in the popliteal, posterior tibial, and dorsalis pedis arteries. IMPRESSION: 20-49% stenosis of the superficial femoral artery with distal decreased waveforms in the tibial arteries. 1-19% stenosis in the posterior tibial artery. Dictated by: Teja Fuchs M.D. on 08/02/2025 at 11:33 Approved by: eTja Fuchs M.D. on 08/02/2025 at 12:06
== END ==
PROVIDERS: PCP Internal Medicine; Referring Provider Internal Medicine; Visit Provider Physician Assistant
DX: L97.929 Non-pressure chronic ulcer of unspecified part of left lower leg with unspecified severity (principal); I70.202 Unspecified atherosclerosis of native arteries of extremities, left leg
CPT/HCPCS: 93926

== ENCOUNTER → 2025-08-04 09:20 | Outpatient (CLI) | payer OTHER, SELFPAY ==
[2023-09-10 12:18] VITALS: BMI 29.5
== END ==
LOC: WC 09:22
PROVIDERS: PCP Internal Medicine; Referring Provider Internal Medicine; Visit Provider Physician Assistant
DX: I87.2 Venous insufficiency (chronic) (peripheral) (principal); L97.821 Non-pressure chronic ulcer of other part of left lower leg limited to breakdown of skin; L98.8 Other specified disorders of the skin and subcutaneous tissue; E11.622 Type 2 diabetes mellitus with other skin ulcer; L53.8 Other specified erythematous conditions; R60.0 Localized edema
CPT/HCPCS: 97602; 99213

== ENCOUNTER → 2025-08-08 11:37 | Outpatient (CLI) | payer OTHER, SELFPAY ==
[2023-09-10 12:18] VITALS: BMI 29.5
== END ==
LOC: WC 11:37
PROVIDERS: PCP Internal Medicine; Referring Provider Internal Medicine; Visit Provider Surgery
DX: I87.2 Venous insufficiency (chronic) (peripheral) (principal); L97.821 Non-pressure chronic ulcer of other part of left lower leg limited to breakdown of skin; L81.8 Other specified disorders of pigmentation; L08.9 Local infection of the skin and subcutaneous tissue, unspecified; I73.9 Peripheral vascular disease, unspecified
CPT/HCPCS: 99213

== ENCOUNTER → 2025-08-11 11:36 | Outpatient (CLI) | payer OTHER, SELFPAY ==
[2023-09-10 12:18] VITALS: BMI 29.5
== END ==
LOC: WC 11:36
PROVIDERS: PCP Internal Medicine; Referring Provider Internal Medicine; Visit Provider Physician Assistant
DX: I87.2 Venous insufficiency (chronic) (peripheral) (principal); L97.821 Non-pressure chronic ulcer of other part of left lower leg limited to breakdown of skin; E11.622 Type 2 diabetes mellitus with other skin ulcer; L53.8 Other specified erythematous conditions; L98.8 Other specified disorders of the skin and subcutaneous tissue; R60.0 Localized edema
CPT/HCPCS: 97602; 99213

== ENCOUNTER → 2025-08-15 15:14 | Outpatient (CLI) | payer OTHER, SELFPAY ==
[2023-09-10 12:18] VITALS: BMI 29.5
== END ==
LOC: WC 15:15
PROVIDERS: PCP Internal Medicine; Referring Provider Internal Medicine; Visit Provider Surgery
DX: L97.821 Non-pressure chronic ulcer of other part of left lower leg limited to breakdown of skin (principal); I87.2 Venous insufficiency (chronic) (peripheral); L53.9 Erythematous condition, unspecified; R60.0 Localized edema
CPT/HCPCS: 99213

== ENCOUNTER → 2025-08-18 10:06 | Outpatient (CLI) | payer OTHER, SELFPAY ==
[2023-09-10 12:18] VITALS: BMI 29.5
== END ==
LOC: WC 10:20
PROVIDERS: PCP Internal Medicine; Referring Provider Internal Medicine; Visit Provider Physician Assistant
DX: L97.821 Non-pressure chronic ulcer of other part of left lower leg limited to breakdown of skin (principal); I87.2 Venous insufficiency (chronic) (peripheral); L53.9 Erythematous condition, unspecified; R60.0 Localized edema; E11.622 Type 2 diabetes mellitus with other skin ulcer
CPT/HCPCS: 97602; 99213

== ENCOUNTER → 2025-08-22 15:07 | Outpatient (CLI) | payer OTHER, SELFPAY ==
[2023-09-10 12:18] VITALS: BMI 29.5
== END ==
LOC: WC 15:08
PROVIDERS: PCP Internal Medicine; Referring Provider Internal Medicine; Visit Provider Surgery
DX: I87.2 Venous insufficiency (chronic) (peripheral) (principal); L97.821 Non-pressure chronic ulcer of other part of left lower leg limited to breakdown of skin; L53.8 Other specified erythematous conditions; L98.8 Other specified disorders of the skin and subcutaneous tissue
CPT/HCPCS: 99212

== ENCOUNTER → 2025-08-25 09:32 | Outpatient (CLI) | payer OTHER, SELFPAY ==
[2023-09-10 12:18] VITALS: BMI 29.5
== END ==
LOC: WC 09:33
PROVIDERS: PCP Internal Medicine; Referring Provider Internal Medicine; Visit Provider Physician Assistant
DX: R60.0 Localized edema (principal); E11.628 Type 2 diabetes mellitus with other skin complications
CPT/HCPCS: 99212

== ENCOUNTER → 2025-09-08 09:52 | Outpatient (CLI) | payer OTHER, SELFPAY ==
[2023-09-10 12:18] VITALS: BMI 29.5
== END ==
LOC: WC 09:53
PROVIDERS: PCP Internal Medicine; Referring Provider Internal Medicine; Visit Provider Physician Assistant
DX: I87.2 Venous insufficiency (chronic) (peripheral) (principal); L97.812 Non-pressure chronic ulcer of other part of right lower leg with fat layer exposed; L97.822 Non-pressure chronic ulcer of other part of left lower leg with fat layer exposed; E11.622 Type 2 diabetes mellitus with other skin ulcer; L53.8 Other specified erythematous conditions; R60.0 Localized edema; Z87.891 Personal history of nicotine dependence
CPT/HCPCS: 11042; 99213

== ENCOUNTER → 2025-09-12 11:22 | Outpatient (CLI) | payer OTHER, SELFPAY ==
[2023-09-10 12:18] VITALS: BMI 29.5
== END ==
LOC: WC 11:41
PROVIDERS: PCP Internal Medicine; Referring Provider Internal Medicine; Visit Provider Surgery
DX: I87.2 Venous insufficiency (chronic) (peripheral) (principal); L97.812 Non-pressure chronic ulcer of other part of right lower leg with fat layer exposed; L97.822 Non-pressure chronic ulcer of other part of left lower leg with fat layer exposed; L53.8 Other specified erythematous conditions; R60.0 Localized edema
CPT/HCPCS: 99213

== ENCOUNTER → 2025-09-15 10:49 | Outpatient (CLI) | payer OTHER, SELFPAY ==
[2023-09-10 12:18] VITALS: BMI 29.5
== END ==
LOC: WC 10:50
PROVIDERS: PCP Internal Medicine; Referring Provider Internal Medicine; Visit Provider Physician Assistant
DX: I87.2 Venous insufficiency (chronic) (peripheral) (principal); L97.812 Non-pressure chronic ulcer of other part of right lower leg with fat layer exposed; L97.822 Non-pressure chronic ulcer of other part of left lower leg with fat layer exposed; E11.622 Type 2 diabetes mellitus with other skin ulcer; L95.8 Other vasculitis limited to the skin; L53.8 Other specified erythematous conditions; R60.0 Localized edema
CPT/HCPCS: 11042; 99213

== ENCOUNTER → 2025-09-19 09:59 | Outpatient (CLI) | payer OTHER, SELFPAY ==
[2023-09-10 12:18] VITALS: BMI 29.5
== END ==
LOC: WC 10:00
PROVIDERS: PCP Internal Medicine; Referring Provider Internal Medicine; Visit Provider Surgery
DX: I87.2 Venous insufficiency (chronic) (peripheral) (principal); L95.8 Other vasculitis limited to the skin; L97.812 Non-pressure chronic ulcer of other part of right lower leg with fat layer exposed; L97.822 Non-pressure chronic ulcer of other part of left lower leg with fat layer exposed; L98.8 Other specified disorders of the skin and subcutaneous tissue; R60.0 Localized edema; R21 Rash and other nonspecific skin eruption
CPT/HCPCS: 99213

== ENCOUNTER → 2025-09-22 14:30 | Outpatient (CLI) | payer OTHER, SELFPAY ==
[2023-09-10 12:18] VITALS: BMI 29.5
== END ==
LOC: WC 15:05
PROVIDERS: PCP Internal Medicine; Referring Provider Internal Medicine; Visit Provider Physician Assistant
DX: I87.2 Venous insufficiency (chronic) (peripheral) (principal); E11.622 Type 2 diabetes mellitus with other skin ulcer; L97.812 Non-pressure chronic ulcer of other part of right lower leg with fat layer exposed; L97.822 Non-pressure chronic ulcer of other part of left lower leg with fat layer exposed; L98.8 Other specified disorders of the skin and subcutaneous tissue; R60.0 Localized edema; R21 Rash and other nonspecific skin eruption
CPT/HCPCS: 11042

== ENCOUNTER → 2025-09-26 09:24 | Outpatient (CLI) | payer OTHER, SELFPAY ==
[2023-09-10 12:18] VITALS: BMI 29.5
== END ==
LOC: WC 09:38
PROVIDERS: PCP Internal Medicine; Referring Provider Internal Medicine; Visit Provider Surgery
DX: I87.2 Venous insufficiency (chronic) (peripheral) (principal); L97.812 Non-pressure chronic ulcer of other part of right lower leg with fat layer exposed; L97.822 Non-pressure chronic ulcer of other part of left lower leg with fat layer exposed; R60.0 Localized edema; L98.8 Other specified disorders of the skin and subcutaneous tissue
CPT/HCPCS: 99214

== ENCOUNTER → 2025-10-03 09:26 | Outpatient (CLI) | payer OTHER, SELFPAY ==
[2023-09-10 12:18] VITALS: BMI 29.5
== END ==
LOC: WC 09:28
PROVIDERS: PCP Internal Medicine; Referring Provider Internal Medicine; Visit Provider Surgery
DX: I87.2 Venous insufficiency (chronic) (peripheral) (principal); L97.812 Non-pressure chronic ulcer of other part of right lower leg with fat layer exposed; L97.822 Non-pressure chronic ulcer of other part of left lower leg with fat layer exposed; L98.8 Other specified disorders of the skin and subcutaneous tissue; R60.0 Localized edema
CPT/HCPCS: 99212

== ENCOUNTER → 2025-10-06 10:51 | Outpatient (CLI) | payer OTHER, SELFPAY ==
[2023-09-10 12:18] VITALS: BMI 29.5
== END ==
LOC: WC 10:52
PROVIDERS: PCP Internal Medicine; Referring Provider Internal Medicine; Visit Provider Physician Assistant
DX: B35.9 Dermatophytosis, unspecified (principal); R60.0 Localized edema; I87.2 Venous insufficiency (chronic) (peripheral); L81.9 Disorder of pigmentation, unspecified; E11.51 Type 2 diabetes mellitus with diabetic peripheral angiopathy without gangrene; I11.0 Hypertensive heart disease with heart failure; I50.9 Heart failure, unspecified
CPT/HCPCS: 99212